=== PATIENT | female | born 1940 | race American Indian/Alaskan Native ===

== ENCOUNTER 2017-02-24 10:50 | Emergency (ER) | payer MEDICARE, OTHER ==
[2017-02-24 11:00] VITALS: BMI 19.8
[2017-02-24 11:04] VITALS: TEMP 98.7; O2SAT 100
--- NOTE | 2017-02-24 11:21 | ED PDOC ---
Arrival/HPI - General Chief Complaint: Hip Pain Time Seen by Provider: 02/24/17 11:09 Historian: Patient - History of Present Illness Narrative History of Present Illness (Text): 02/24/17 11:14 A 76 year old female, whose past medical history includes multiple myeloma, hypothyroidism, hypertension and collapsed disk (T7), presents to the emergency department complaining of right hip pain for the past 3 days. Patient notes difficulty ambulating secondary to pain. Patient denies any trauma, injury, fever, nausea, vomiting, abdominal pain, urinary symptoms, chest pain, shortness of breath or any other complaints. PMD: Dr. Ding Time/Duration: Other (3 days) Symptom Course: Unchanged Quality: Other Context: Home Associated Symptoms (Text): 02/24/17 12:43 history of multiple myeloma. Seen by the oncologist this morning and sent to the emergency Department to rule out a pathological fracture. no injury or trauma. Patient has difficulty ambulating. Past Medical History - Provider Review Nursing Documentation Reviewed: Yes - Infectious Disease Hx of Infectious Diseases: None - Tetanus Immunization Tetanus Immunization: Unknown - Cardiac Hx Cardiac Disorders: Yes (CAD) Hx Hypertension: Yes - Pulmonary Hx Respiratory Disorders: No - Neurological Hx Neurological Disorder: No - HEENT Hx HEENT Disorder: No - Renal Hx Renal Disorder: No - Endocrine/Metabolic Hx Endocrine Disorders: Yes Hx Hypothyroidism: Yes - Hematological/Oncological Hx Blood Disorders: Yes Hx Cancer: Yes (back, multiple myeloma 2016) Hx Chemotherapy: Yes (on oral chemotherapy) - Integumentary Hx Dermatological Disorder: No Other/Comment: multiple ble skin discolorations - Musculoskeletal/Rheumatological Hx Musculoskeletal Disorders: Yes Hx Arthritis: Yes - Gastrointestinal Hx Gastrointestinal Disorders: Yes (CONSTIPATION,POOR APPETITE ON ENSURE DAILY,) - Genitourinary/Gynecological Hx Genitourinary Disorders: Yes Hx Reproductive Disorders: Yes (RIGHT BREAST SX) - Psychiatric Hx Psychophysiologic Disorder: No Hx Depression: No Hx Emotional Abuse: No Hx Physical Abuse: No Hx Substance Use: No - Surgical History Hx Hysterectomy: Yes Hx Thyroidectomy: Yes Other/Comment: r breast benign growth removed - Anesthesia Hx Anesthesia: No Hx Anesthesia Reactions: No Hx Malignant Hyperthermia: No - Suicidal Assessment Feels Threatened In Home Enviroment: No Family/Social History - Physician Review Nursing Documentation Reviewed: Yes Family/Social History: No Known Family HX Smoking Status: Never Smoked Hx Alcohol Use: No Hx Substance Use: No Allergies/Home Meds Allergies/Adverse Reactions: Allergies Sulfa (Sulfonamide Antibiotics) Allergy (Verified 02/24/17 11:00) RASH Home Medications: Home Meds Medication Instructions Recorded Confirmed Aspirin [Lo-Dose Aspirin EC] 81 mg PO .2-3 X PER WEEK 12/19/16 02/24/17 Ixazomib Citrate [Ninlaro] 3 mg PO QWK 12/19/16 02/24/17 Lenalidomide [Revlimid] 25 mg PO DAILY 12/19/16 02/24/17 Calcitonin ([place]) [Miacalcin] 1 inh INH DAILY 02/24/17 02/24/17 Metoprolol Tartrate [Lopressor] 50 mg PO DAILY 02/24/17 02/24/17 predniSONE [predniSONE Tab] 2.5 mg PO DAILY 02/24/17 02/24/17 Review of Systems - Physician Review All systems were reviewed & negative as marked: Yes - Review of Systems Constitutional: absent: Fevers Respiratory: absent: SOB Cardiovascular: absent: Chest Pain Gastrointestinal: absent: Abdominal Pain, Nausea, Vomiting Genitourinary Female: absent: Dysuria, Frequency, Hematuria, Urine Output Changes Physical Exam Vital Signs Reviewed: Yes Vital Signs Temp Pulse Resp BP Pulse Ox 02/24/17 12:22 65 18 114/75 100 02/24/17 11:01 98.7 F 63 16 112/71 100 Temperature: Afebrile Blood Pressure: Normal Pulse: Regular Respiratory Rate: Normal Appearance: Positive for: Well-Appearing, Non-Toxic, Uncomfortable Pain Distress: Mild Mental Status: Positive for: Alert and Oriented X 3 - Systems Exam Head: Present: Atraumatic, Normocephalic Pupils: Present: PERRL Extroacular Muscles: Present: EOMI Conjunctiva: Present: Normal Respiratory/Chest: Present: Clear to Auscultation, Good Air Exchange. No: Respiratory Distress, Accessory Muscle Use Cardiovascular: Present: Regular Rate and Rhythm, Normal S1, S2. No: Murmurs Abdomen: Present: Normal Bowel Sounds. No: Tenderness, Distention, Peritoneal Signs Back: Present: Normal Inspection Upper Extremity: Present: Normal Inspection. No: Cyanosis, Edema Lower Extremity: Present: NORMAL PULSES, Tenderness (Right lateral hip tenderness), Neurovascularly Intact, Other (No pain with external and internal rotation). No: Edema, CALF TENDERNESS, Swelling, Erythema, Deformity, Temperature Abnormalties Neurological: Present: GCS=15, CN II-XII Intact, Speech Normal, Motor Func Grossly Intact Skin: Present: Warm, Dry, Normal Color. No: Rashes Psychiatric: Present: Alert, Oriented x 3, Normal Insight, Normal Concentration Medical Decision Making ED Course and Treatment: 02/24/17 11:14 Impression: A 76 year old female with right hip pain. Patient denies any injury or trauma. Plan: -- Right hip with pelvis xray -- Morphine and Zofran -- Reassess and disposition Prior Visits: Notes and results from previous visits were reviewed. Patient last seen in ED on 12/19/16 for generalized weakness. Patient was hospitalized for multiple myeloma and dehydration. Progress Notes: Report Date : 02/24/2017 12:32:02 PROCEDURE: Right Hip and pelvis Radiographs. Dictator : Bharathi Lewis MD IMPRESSION: Negative study 02/24/17 12:51 pain has improved. - RAD Interpretation Radiology Orders: 02/24/17 11:26 HIP MIN 2V W/ PELVIS RT [RAD] Stat hip and pelvis show no fracture or disloclocation. Travel Specialist: ED Physician - Medication Orders Current Medication Orders: Discontinued Medications Morphine Sulfate (Morphine) 4 mg IM STAT STA Stop: 02/24/17 11:28 Ondansetron HCl (Zofran Tab) 4 mg PO STAT STA Stop: 02/24/17 11:28 - Scribe Statement The provider has reviewed the documentation as recorded by the Eleazar Scott Provider Scribe Attestation: All medical record entries made by the Scribe were at my direction and personally dictated by me. I have reviewed the chart and agree that the record accurately reflects my personal performance of the history, physical exam, medical decision making, and the department course for this patient. I have also personally directed, reviewed, and agree with the discharge instructions and disposition. Disposition/Present on Arrival - Present on Arrival Any Indicators Present on Arrival: No History of DVT/PE: No History of Uncontrolled Diabetes: No Urinary Catheter: No History of Decub. Ulcer: No History Surgical Site Infection Following: None - Disposition Have Diagnosis and Disposition been Completed?: Yes Diagnosis: Multiple myeloma, Right hip pain Disposition: HOME/ ROUTINE Disposition Time: 12:51 Patient Plan: Discharge Patient Problems: Current Active Problems Problem Status Diagnosed Cachexia Acute Dehydration Acute Hypothyroid Acute Multiple myeloma Acute Pituitary adenoma Acute Prophylactic measure Acute Thoracic compression fracture Acute Condition: GOOD Discharge Instructions (ExitCare): Hip Sprain (ED) Additional Instructions: Rest and moist heat. Follow-up with PMD. Prescriptions: oxyCODONE/Acetaminophen [Percocet 5/325 mg Tab] 1 ea PO Q6 #15 tab
[2017-02-24] MEDS ORDERED: Morphine 4 mg/ml ISec IM STA (11:27)
[2017-02-24 12:22] VITALS: BP 114/75; PULSE 65; RESP 18
--- NOTE | 2017-02-24 12:33 | RAD ---
PROCEDURE: Right Hip and pelvis Radiographs. HISTORY: pain COMPARISON: None. FINDINGS: BONES: Normal. No fracture. JOINTS: Normal. SOFT TISSUES: Normal. OTHER FINDINGS: None. IMPRESSION: Negative study
== END 2017-02-24 13:15 | disposition home or self-care (01) ==
LOC: ED 10:50
DX: C90.00 Multiple myeloma not having achieved remission (principal); M25.551 Pain in right hip
CPT/HCPCS: 73502; 96372; 99283; J2270

== ENCOUNTER 2017-02-25 16:41 | Inpatient (IN) | payer MEDICARE, BC ==
[2017-02-25 16:42] VITALS: BMI 19.8
[2017-02-25] MEDS ORDERED: Morphine 4 mg/ml ISec IVP STA (18:09)
--- NOTE | 2017-02-25 18:34 | RAD ---
HISTORY: Low back pain COMPARISON: 12/19/2016. FINDINGS: LUNGS: The lungs are clear. PLEURA: No significant pleural effusion identified, no pneumothorax apparent. CARDIOVASCULAR: The heart is normal in size. Atherosclerotic aortic arch calcifications are present. . OSSEOUS STRUCTURES: No significant abnormalities. VISUALIZED UPPER ABDOMEN: Normal. OTHER FINDINGS: None. IMPRESSION: No active pulmonary disease.
--- NOTE | 2017-02-25 18:52 | ED PDOC ---
Arrival/HPI <Beatrice Brooke - Last Filed: 02/25/17 21:35> - General Historian: Patient <Nadine Burton PA-C - Last Filed: 02/25/17 23:14> - General Chief Complaint: Lower Extremity Problem/Injury Time Seen by Provider: 02/25/17 17:27 - History of Present Illness Narrative History of Present Illness (Text): 02/25/17 18:48 Patient with past medical history includes multiple myeloma, hypothyroidism, hypertension and collapsed disk (T7), presents to the emergency department complaining of continued right hip pain and low back pain for the past 4 days. Patient states that she was seen here yesterday for similar complaints, states that she had x-rays done and were normal. States that she was prescribed Percocet for pain which she started taking today with mild improvement. However she states that she has difficulty ambulating at home secondary to pain, states she called her PMD Dr. Ding who notified her to come to the emergency room to be admitted for observation. Patient denies any trauma, injury, fall, fever, nausea, vomiting, abdominal pain, urinary symptoms, bowel / bladder incontinence , chest pain, shortness of breath or any other complaints. PMD Toña (Nadine Burton PA-C) Past Medical History - Provider Review Nursing Documentation Reviewed: Yes - Infectious Disease Hx of Infectious Diseases: None - Tetanus Immunization Tetanus Immunization: Unknown - Reproductive Menopause: Yes - Cardiac Hx Cardiac Disorders: Yes (CAD) Hx Hypertension: Yes - Pulmonary Hx Respiratory Disorders: No - Neurological Hx Neurological Disorder: No - HEENT Hx HEENT Disorder: No - Renal Hx Renal Disorder: No - Endocrine/Metabolic Hx Endocrine Disorders: Yes Hx Hypothyroidism: Yes - Hematological/Oncological Hx Blood Disorders: Yes Hx Cancer: Yes (back, multiple myeloma 2016) Hx Chemotherapy: Yes (on oral chemotherapy) - Integumentary Hx Dermatological Disorder: No Other/Comment: multiple ble skin discolorations - Musculoskeletal/Rheumatological Hx Musculoskeletal Disorders: Yes Hx Arthritis: Yes - Gastrointestinal Hx Gastrointestinal Disorders: Yes (CONSTIPATION,POOR APPETITE ON ENSURE DAILY,) - Genitourinary/Gynecological Hx Genitourinary Disorders: Yes Hx Reproductive Disorders: Yes (RIGHT BREAST SX) - Psychiatric Hx Psychophysiologic Disorder: No Hx Depression: No Hx Emotional Abuse: No Hx Physical Abuse: No Hx Substance Use: No - Surgical History Hx Hysterectomy: Yes Hx Thyroidectomy: Yes Other/Comment: r breast benign growth removed - Anesthesia Hx Anesthesia: No Hx Anesthesia Reactions: No Hx Malignant Hyperthermia: No - Suicidal Assessment Feels Threatened In Home Enviroment: No <Nadine Burton PA-C - Last Filed: 02/25/17 23:14> Family/Social History - Physician Review Nursing Documentation Reviewed: Yes Family/Social History: No Known Family HX Smoking Status: Never Smoked Hx Alcohol Use: No Hx Substance Use: No <Nadine Burton PA-C - Last Filed: 02/25/17 23:14> Allergies/Home Meds <Beatrice Brooke - Last Filed: 02/25/17 21:35> <Nadine Burton PA-C - Last Filed: 02/25/17 23:14> Allergies/Adverse Reactions: Allergies Sulfa (Sulfonamide Antibiotics) Allergy (Verified 02/25/17 17:07) RASH Home Medications: Home Meds Medication Instructions Recorded Confirmed Aspirin [Lo-Dose Aspirin EC] 81 mg PO .2-3 X PER WEEK 12/19/16 02/25/17 Ixazomib Citrate [Ninlaro] 3 mg PO QWK 12/19/16 02/25/17 Lenalidomide [Revlimid] 25 mg PO DAILY 12/19/16 02/25/17 Calcitonin ([place]) [Miacalcin] 1 inh INH DAILY 02/24/17 02/25/17 Metoprolol Tartrate [Lopressor] 50 mg PO DAILY 02/24/17 02/25/17 predniSONE [predniSONE Tab] 2.5 mg PO DAILY 02/24/17 02/25/17 Review of Systems - Review of Systems Constitutional: Normal. absent: Fatigue, Weight Change, Fevers Respiratory: Normal. absent: SOB, Cough, Sputum, Wheezing Cardiovascular: Normal. absent: Chest Pain, Palpitations, Edema, Calf Pain Gastrointestinal: Normal. absent: Abdominal Pain, Stool Changes, Nausea, Vomiting Musculoskeletal: Normal, Arthralgias (prior R hipe pain), Back Pain (prior back pain). absent: Neck Pain Skin: Normal. absent: Rash, Pruritis, Skin Lesions Neurological: Normal. absent: Headache, Dizziness, Focal Weakness Psychiatric: Normal. absent: Anxiety, Depression, Suicidal Ideation <Nadine Burton PA-C - Last Filed: 02/25/17 23:14> Physical Exam <Beatrice Brooke - Last Filed: 02/25/17 21:35> <Nadine Burton PA-C - Last Filed: 02/25/17 23:14> - Physical Exam Narrative Physical Exam (Text): 02/25/17 18:53 GENERAL APPEARANCE: Patient is awake, alert, oriented x 3, in moderate painful distress. SKIN: Warm, dry; (-) cyanosis. EYES: (-) conjunctival pallor. ENMT: Mucous membranes moist. NECK: (-) tenderness, (-) stiffness, (-) lymphadenopathy, (-) JVD. CHEST AND RESPIRATORY: (-) rash, (-) chest wall tenderness. Lungs: (-) rales , (-) rhonchi, (-) wheezes, (-) rub; breath sounds equal bilaterally. HEART AND CARDIOVASCULAR: (-) irregularity; (-) murmur, (-) gallop, (-) rub. ABDOMEN AND GI: Soft; (-) distention, (-) tenderness, (-) palpable pulsatile mass. BACK: (+) tenderness to L3-L5, (-) paralumbar tenderness. EXTREMITIES: (+) tenderness to the R hip with limited ROM secondary to pain, (- ) deformity; (-) edema, (-) calf tenderness. (+) distal pulses. NEURO AND PSYCH: Mental status as above. Cranial nerves grossly intact; strength symmetric, sensation intact and symmetric. (Nadine Burton PA-C) Vital Signs Temp Pulse Resp BP Pulse Ox 02/25/17 22:28 18 98 02/25/17 21:41 78 16 98 02/25/17 19:30 70 16 109/72 98 02/25/17 17:01 98.8 F 64 18 120/56 L 99 Medical Decision Making - RAD Interpretation Quality Assurance/R&D Lab Technician: Radiologist <Beatrice Brooke - Last Filed: 02/25/17 21:35> - Lab Interpretations I have reviewed the lab results: Yes (mild renal insufficiency noted) <Nadine Burton PA-C - Last Filed: 02/25/17 23:14> ED Course and Treatment: 02/25/17 18:53 76 yo F PMHx of multiple myeloma, hypothyroidism, hypertension and collapsed disk (T7), returns to the emergency department for continued low back and right hip pain unable to ambulate secondary to pain. Plan: -- Labs -- IV access -- Urinalysis -- EKG -- CXR -- Morphine and zofran IV -- Reassess and disposition 02/25/17 23:12 Case d/w Dr. Ding, requesting a CT be done and to admit for observation. resident engineer called and notified of admission. (Micheal COFFMAN,Nadine Mitchell) - Lab Interpretations Lab Results: 02/25/17 19:10 02/25/17 19:10 Lab Results 02/25/17 19:10: Sodium 139, Potassium 4.4, Chloride 102, Carbon Dioxide 27, Anion Gap 14, BUN 35 H, Creatinine 1.8 H, Est GFR ( Amer) 33, Est GFR ( Non-Af Amer) 27, Random Glucose 96, Calcium 9.2, Total Bilirubin 0.7, AST 51 H, ALT 71 H, Alkaline Phosphatase 87, Total Protein 7.5, Albumin 3.9, Globulin 3.5 , Albumin/Globulin Ratio 1.1 02/25/17 19:10: WBC 6.7 D, RBC 3.44 L, Hgb 11.0 L, Hct 32.6 L, MCV 94.8, MCH 32.0, MCHC 33.7, RDW 17.4 H, Plt Count 174, MPV 9.3, Gran % 79.4 H, Lymph % ( Auto) 10.1 L, [place] % (Auto) 10.0 H, Eos % (Auto) 0.1 L, Baso % (Auto) 0.4, Gran # 5.33, Lymph # 0.7 L, [place] # 0.7 H, Eos # 0.0, Baso # 0.03 - RAD Interpretation Narrative RAD Interpretations (Text): EXAM: CT Pelvis Without Intravenous Contrast FINDINGS: Bones/joints: No acute fracture. Mild degenerative changes of sacroiliac joints. Probable bone island. No dislocation. Soft tissues: Chondrocalcinosis of pubic symphysis. Vasculature: Atherosclerotic disease of visualized arteries. Reproductive: Hysterectomy. IMPRESSION: 1. No pelvic fracture. If hip pain persists, consider MRI to exclude occult fracture/internal derangement. 3. See lumbar spine CT report for additional details. 4. Incidental/non-acute findings are described above. EXAM: CT Lumbar Spine Without Intravenous Contrast FINDINGS: Vertebrae: Subacute compression fractures of T12, L1, L3, L5 vertebral bodies, present on previous examination. Compression most pronounced at L5 level. Mild retropulsion of posterior margin of L5 vertebral body. Other bones/joints: Several healing rib fractures. Discs/spinal canal/neural foramina: Moderate degenerative disc disease at L3-L4 level. Mild disc herniations at L3-L4, L4-L5, L5-S1 levels, suboptimally evaluated. Soft tissues: Unremarkable. Vasculature: Atherosclerotic disease of visualized arteries. Lungs: Minimal atelectasis/scarring. Kidneys and ureters: Few renal cysts. Stomach and bowel: Mild gastric distention. IMPRESSION: 1. Subacute compression fractures. 2. Incidental/non-acute findings are described above. (Beatrice Brooke) CXR : NAD, as read by PA (Micheal COFFMAN,Nadine Mitchell) Radiology Orders: 02/25/17 18:08 CHEST PORTABLE [RAD] Stat - Medication Orders Current Medication Orders: Amlodipine Besylate (Norvasc) 5 mg PO DAILY [facility] Aspirin (Ecotrin) 81 mg PO MoTh@1000 [facility] Calcitonin [place] (Miacalcin) 200 iu NS DAILY [facility] Dexamethasone (Decadron) 16 mg PO FRI [facility] Heparin Sodium (Porcine) (Heparin) 5,000 units SC Q8H [facility] PRN Reason: Protocol Sodium Chloride (Sodium Chloride 0.9%) 1,000 mls @ 40 mls/hr IV .Q24H [facility] Levothyroxine Sodium (Synthroid) 25 mcg PO DAILY [facility] Megestrol Acetate (Megace) 400 mg PO DAILY [facility] Metoprolol Tartrate (Lopressor) 50 mg PO DAILY [facility] Morphine Sulfate (Morphine) 1 mg IVP Q4H PRN PRN Reason: Pain, severe (8-10) Non-Formulary Medication (Ixazomib Citrate [Ninlaro]) 3 mg PO QWK [facility] Non-Formulary Medication (Lenalidomide [Revlimid]) 25 mg PO DAILY [facility] Oxycodone/Acetaminophen (Percocet 5/325 Mg Tab) 1 tab PO Q6 [facility] Stop: 03/01/17 00:01 Oxycodone/Acetaminophen (Percocet 5/325 Mg Tab) 1 tab PO Q6H PRN PRN Reason: Pain, moderate (4-7) Stop: 02/28/17 22:01 Pantoprazole Sodium (Protonix Ec Tab) 40 mg PO 0630 [facility] Prednisone (Prednisone Tab) 2.5 mg PO DAILY [facility] Discontinued Medications Morphine Sulfate (Morphine) 4 mg IVP STAT STA Stop: 02/25/17 18:10 Last Admin: 02/25/17 19:17 Dose: 4 mg Ondansetron HCl (Zofran Inj) 4 mg IVP STAT STA Stop: 02/25/17 18:10 Last Admin: 02/25/17 19:18 Dose: 4 mg - PA / BILINGUAL SECRETARY / Resident Statement / has reviewed & agrees with the documentation as recorded. <Nadine Burton PA-C - Last Filed: 02/25/17 23:14> Disposition/Present on Arrival <Beatrice Brooke - Last Filed: 02/25/17 21:35> - Present on Arrival Any Indicators Present on Arrival: No History of DVT/PE: No History of Uncontrolled Diabetes: No Urinary Catheter: No History of Decub. Ulcer: No History Surgical Site Infection Following: None - Disposition Have Diagnosis and Disposition been Completed?: Yes Disposition Time: 19:15 Patient Plan: Observation (med-surg) <Nadine Burton PA-C - Last Filed: 02/25/17 23:14> - Disposition Diagnosis: Right hip pain, Low back pain Disposition: HOSPITALIZED Patient Problems: Current Active Problems Problem Status Onset Low back pain Acute Right hip pain Acute Condition: STABLE
[2017-02-25 19:17] LABS: ADD MANUAL DIFF? NO
[2017-02-25 19:26] LABS: BASO # 0.03 K/mm3 (0.0-2.0); BASO % 0.4 % (0.0-3.0); EOS % 0.1 % (1.5-5.0); GRAN # 5.33 (1.4-6.5); GRAN % 79.4 % (50.0-68.0); HEMATOCRIT 32.6 % (36.0-48.0); LYMPH # 0.7 (1.2-3.4); LYMPH % 10.1 % (22.0-35.0); MEAN CELL VOLUME 94.8 fL (80.0-105.0); MEAN CORPUSCULAR HGB CONC 33.7 g/dl (31.0-37.0); MEAN PLATELET VOLUME 9.3 fl (7.0-11.0); MONO # 0.7 (0.1-0.6); PLATELET COUNT 174 10^3/uL (120.0-450.0); RED CELL DISTRIBUTION WIDTH 17.4 % (11.5-14.5); WHITE BLOOD COUNT 6.7 10^3/ul (4.5-11.0)
[2017-02-25 19:31] LABS: ALB/GLOB RATIO 1.1 (1.1-1.8); BILIRUBIN,TOTAL 0.7 mg/dL (0.2-1.3); CALCIUM 9.2 mg/dL (8.4-10.5); POTASSIUM 4.4 mmol/L (3.6-5.0); TOTAL PROTEIN 7.5 g/dL (5.8-8.3)
--- NOTE | 2017-02-25 20:55 | CP.PCM.HP ---
History of Present Illness - History of Present Illness History of Present Illness: HPI: Pt is a 76 y/o -[place] Female with a PMHx of multiple myeloma on chemo and radiation, pituitary adenoma s/p surgery, uterine fibroids s/p hysterectomy and b/l oophorectomy, hypothyroidism secondary to thyroidectomy, and HTN who presented to the ED with complaints of severe right hip and back pain. Pt reports that her right hip pain began on , and she reports that she has been unable to bear weight on her right leg. The pt also reports that she has developed new onset severe mid lower back pain that began yesterday. She reports that she came to the ED right hip/pelvis x-ray was performed, which came back negative, and she was sent home. Pt reports that the pain is very bad. Pt also reports that she has chronic leg edema which has been present since she started chemo 2 years ago. Pt denies any history of falls or trauma to the area. Pt denies fever, chills, chest pain, shortness of breath, nausea, and vomiting. PMD: Dr. Ding Heme/onc: Dr. Huffman Past Medical Hx: ultiple myeloma on chemo and radiation, uterine fibroids, hypothyroidism secondary to thyroidectomy, and HTN Home Medications: Prednisone 2.5 mg po qd, metoprolol 50 mg po qd, norvasc 5 mg po qd, percocet 5/325 mg 1 tab po qd, calcitonin 200 iu 1 inh daily, revlimid 25 mg po qd, ninlaro 3 mg po qweekly, megace 400 mg po qd, synthroid 25 mcg 0.025 mg po qd, decadron 4 mg tab 16 mg po qfri, aspirin 81 mg po qd Allergies: Sulfa drugs (hives) Past Surgical Hx: thyroidectomy, hysterectomy with b/l oophorectomy, breast mass removal, pituitary adenoma s/p transphenoidal resection x 3, Social Hx: quit smoking 50 years ago, very occasional alcohol use socially, denies hx of drug abuse Fam Hx: breast cancer (mother), HTN, Diabetes (mother and father) Present on Admission - Present on Admission Any Indicators Present on Admission: No Review of Systems - Constitutional Constitutional: absent: Chills, Fever - EENT Eyes: absent: Blind Spots, Blurred Vision Ears: absent: Dizziness Nose/Mouth/Throat: absent: Nasal Congestion, Nasal Discharge - Cardiovascular Cardiovascular: Leg Edema. absent: Chest Pain, Dyspnea, Irregular Heart Rhythm - Respiratory Respiratory: absent: Cough, Hemoptysis - Gastrointestinal Gastrointestinal: absent: Abdominal Pain, Constipation - Musculoskeletal Musculoskeletal: Arthralgias, Back Pain, Radiating Pain into Limb Additional comments: Right hip pain, mid lower back pain - Neurological Neurological: absent: Dizziness, Focal Weakness, Frequent Falls, Tremor, Vertigo - Psychiatric Psychiatric: absent: Anxiety - Endocrine Endocrine: absent: Flushing Past Patient History - Infectious Disease Hx of Infectious Diseases: None - Tetanus Immunizations Tetanus Immunization: Unknown - Past Social History Smoking Status: Never Smoked - CARDIAC Hx Cardiac Disorders: Yes (CAD) Hx Hypertension: Yes - PULMONARY Hx Respiratory Disorders: No - NEUROLOGICAL Hx Neurological Disorder: No - HEENT Hx HEENT Problems: No - RENAL Hx Chronic Kidney Disease: No - ENDOCRINE/METABOLIC Hx Endocrine Disorders: Yes Hx Hypothyroidism: Yes - HEMATOLOGICAL/ONCOLOGICAL Hx Blood Disorders: Yes Hx Cancer: Yes (back, multiple myeloma 2016) Hx Chemotherapy: Yes (on oral chemotherapy) - INTEGUMENTARY Hx Dermatological Problems: No Other/Comment: multiple ble skin discolorations - MUSCULOSKELETAL/RHEUMATOLOGICAL Hx Musculoskeletal Disorders: Yes Hx Arthritis: Yes - GASTROINTESTINAL Hx Gastrointestinal Disorders: Yes (CONSTIPATION,POOR APPETITE ON ENSURE DAILY,) - GENITOURINARY/GYNECOLOGICAL Hx Genitourinary Disorders: Yes Hx Reproductive Disorders: Yes (RIGHT BREAST SX) - PSYCHIATRIC Hx Psychophysiologic Disorder: No Hx Depression: No Hx Emotional Abuse: No Hx Physical Abuse: No Hx Substance Use: No - SURGICAL HISTORY Hx Hysterectomy: Yes Hx Thyroidectomy: Yes Other/Comment: r breast benign growth removed - ANESTHESIA Hx Anesthesia: No Hx Anesthesia Reactions: No Hx Malignant Hyperthermia: No Meds Allergies/Adverse Reactions: Allergies Allergy/AdvReac Type Severity Reaction Status Date / Time Sulfa (Sulfonamide Allergy RASH Verified 02/25/17 17:07 Antibiotics) Physical Exam - Constitutional Appears: No Acute Distress - Head Exam Head Exam: ATRAUMATIC, NORMOCEPHALIC - Eye Exam Eye Exam: EOMI, PERRL Pupil Exam: PERRL - ENT Exam ENT Exam: Mucous Membranes Moist. absent: Mucous Membranes Dry - Respiratory Exam Respiratory Exam: Clear to Auscultation Bilateral. absent: Rales, Rhonchi, Wheezes - Cardiovascular Exam Cardiovascular Exam: +S1, +S2. absent: Gallop, Rubs - GI/Abdominal Exam GI & Abdominal Exam: Normal Bowel Sounds, Soft - Extremities Exam Extremities exam: Positive for: normal inspection. Negative for: tenderness - Back Exam Back exam: NORMAL INSPECTION. absent: vertebral tenderness - Neurological Exam Neurological exam: Alert, Oriented x3 - Psychiatric Exam Psychiatric exam: Normal Affect, Normal Mood - Skin Skin Exam: Normal Color, Warm Results - Vital Signs Recent Vital Signs: Last Vital Signs Temp 98.8 F 02/25/17 17:01 Pulse 70 02/25/17 19:30 Resp 16 02/25/17 19:30 BP 109/72 02/25/17 19:30 Pulse Ox 98 02/25/17 19:30 - Labs Result Diagrams: 02/25/17 19:10 02/25/17 19:10 Assessment & Plan - Assessment and Plan (Free Text) Assessment: Right Pelvic/Lower back pain: Hip/Pelvis x-ray (02/24) - negative (please see full report) CT of Pelvis pending Lumbar Spine CT pending CXR - no active pulmonary disease (please see full report) Heme/onc, Dr. Huffman consulted, help appreciated. KAMAR: Bun/Cr 35/1.8 NS IVF 40 cc/hr Transaminitis: AST/ALT: 51/71 Hepatitis panel pending Multiple Myeloma: Prednisone 2.5 mg po qd Ninlaro 3mg po qwk Decadron 4 mg 16 mg po qfri Megace 400 mg po qd Hypothyroidism: Levothyroxine - 0.025 mg po qd Calcitonin INH HTN: Norvac 5 mg po qd Metoprolol 50 mg po qd Prophylactic Measures: DVT: SCDs held due to b/l lower leg edema, Heparin 5000 units sc q8h GI: Protonix 40 mg po qd Aspirin 81 mg po qd
--- NOTE | 2017-02-25 21:21 | CT ---
EXAM: CT Pelvis Without Intravenous Contrast CLINICAL HISTORY: 76 years old, female; Pain; Hip pain; Right hip; Additional info: R hip pain, R/O occult fracture TECHNIQUE: Axial computed tomography images of the pelvis without intravenous contrast. This CT exam was performed using one or more of the following dose reduction techniques: automated exposure control, adjustment of the mA and/or kV according to patient size, and/or use of iterative reconstruction technique. Coronal and sagittal reformatted images were created and reviewed. COMPARISON: CT - ABD PELVIS PO CONTRAST ONLY 01/06/2017 9:05:30 PM FINDINGS: Bones/joints: No acute fracture. Mild degenerative changes of sacroiliac joints. Probable bone island. No dislocation. Soft tissues: Chondrocalcinosis of pubic symphysis. Vasculature: Atherosclerotic disease of visualized arteries. Reproductive: Hysterectomy. IMPRESSION: 1. No pelvic fracture. If hip pain persists, consider MRI to exclude occult fracture/internal derangement. 3. See lumbar spine CT report for additional details. 4. Incidental/non-acute findings are described above.
--- NOTE | 2017-02-25 21:29 | CT ---
EXAM: CT Lumbar Spine Without Intravenous Contrast CLINICAL HISTORY: 76 years old, female; Pain; Low back pain; Additional info: Back pain, R/O occult fracture TECHNIQUE: Axial computed tomography images of the lumbar spine without intravenous contrast. This CT exam was performed using one or more of the following dose reduction techniques: automated exposure control, adjustment of the mA and/or kV according to patient size, and/or use of iterative reconstruction technique. Coronal and sagittal reformatted images were created and reviewed. COMPARISON: CT abdomen/pelvis 01/06/2017 FINDINGS: Vertebrae: Subacute compression fractures of T12, L1, L3, L5 vertebral bodies, present on previous examination. Compression most pronounced at L5 level. Mild retropulsion of posterior margin of L5 vertebral body. Other bones/joints: Several healing rib fractures. Discs/spinal canal/neural foramina: Moderate degenerative disc disease at L3-L4 level. Mild disc herniations at L3-L4, L4-L5, L5-S1 levels, suboptimally evaluated. Soft tissues: Unremarkable. Vasculature: Atherosclerotic disease of visualized arteries. Lungs: Minimal atelectasis/scarring. Kidneys and ureters: Few renal cysts. Stomach and bowel: Mild gastric distention. IMPRESSION: 1. Subacute compression fractures. 2. Incidental/non-acute findings are described above.
[2017-02-25] MEDS ORDERED: Morphine 2 mg/ml ISec IVP PRN (21:51)
[2017-02-25] MEDS ORDERED: Sodium Chloride 0.9% 1,000 ML IV SCH (23:15)
[2017-02-26] MEDS ORDERED: Oxycodone/Acetaminophen 5/325 mg Tab PO SCH
[2017-02-26 01:07] LABS: URINE BILIRUBIN NEGATIVE (NEGATIVE); URINE BLOOD NEGATIVE (NEGATIVE); URINE GLUCOSE (UA) NEGATIVE (NEGATIVE); URINE KETONE NEGATIVE (NEGATIVE); URINE LEUKOCYTE ESTERASE NEGATIVE Leu/uL (NEGATIVE); URINE PROTEIN TRACE mg/dL (<30 mg/dL); URINE UROBILINOGEN 0.2 E.U./dL (<1 E.U./dL)
[2017-02-26 01:17] LABS: URINE APPEARANCE CLEAR (CLEAR); URINE COLOR YELLOW (YELLOW)
[2017-02-26 01:31] LABS: URINE EPITHELIAL CELLS 0 - 2 /hpf (0-5); URINE RBC 0 - 2 /hpf (0-2); URINE WBC 0 - 2 /hpf (0-6)
[2017-02-26 07:46] LABS: ADD MANUAL DIFF? NO
[2017-02-26 07:48] LABS: BASO # 0.02 K/mm3 (0.0-2.0); BASO % 0.4 % (0.0-3.0); EOS % 0.4 % (1.5-5.0); GRAN # 3.77 (1.4-6.5); HEMATOCRIT 27.2 % (36.0-48.0); LYMPH # 0.9 (1.2-3.4); LYMPH % 16.8 % (22.0-35.0); MEAN CELL VOLUME 93.8 fL (80.0-105.0); MEAN CORPUSCULAR HEMOGLOBIN 31.7 pg (25.0-35.0); MEAN CORPUSCULAR HGB CONC 33.8 g/dl (31.0-37.0); MEAN PLATELET VOLUME 9.3 fl (7.0-11.0); MONO # 0.7 (0.1-0.6); MONO % 13.4 % (1.0-6.0); PLATELET COUNT 163 10^3/uL (120.0-450.0); RED CELL DISTRIBUTION WIDTH 17.5 % (11.5-14.5); WHITE BLOOD COUNT 5.5 10^3/ul (4.5-11.0)
[2017-02-26 08:03] LABS: ALB/GLOB RATIO 1.1 (1.1-1.8); CALCIUM 8.5 mg/dL (8.4-10.5); PHOSPHOROUS 2.9 mg/dL (2.5-4.5); POTASSIUM 3.8 mmol/L (3.6-5.0); TOTAL PROTEIN 6.1 g/dL (5.8-8.3)
[2017-02-26 08:04] LABS: BILIRUBIN,TOTAL 0.7 mg/dL (0.2-1.3)
[2017-02-26] MEDS: Pantoprazole 40 mg EC Tab PO SCH (08:11)
[2017-02-26] MEDS: Megestrol Acetate 40 mg/ml Cup PO SCH (09:08)
[2017-02-26] MEDS: Levothyroxine 25 MCG TAB PO SCH (09:09)
[2017-02-26] MEDS: LENALIDOMIDE 25 MG PO SCH (10:30)
--- NOTE | 2017-02-26 10:49 | CON ---
DATE: 02/26/2017 This is a 76-year-old woman with multiple myeloma. She presented about a year and a half ago with th oracic spine pain and she was shown to have multiple myeloma. She received radiation therapy to that area and she has been on chemotherapy since. This includes Decadron once a week, Revlimid 21 out of 28 days, and Ninlaro 1 tablet p.o. once a week 3 out of 4 weeks. She has been doing quite well. He r total proteins have gone down and her blood tests have been doing well. She came to the office on Friday stating that for the last 4 days she has not been able to ambulate almost at all within her ho use due to severe pain in her hip, and on Friday I told to her to go to the Emergency Room. She did go to the Emergency Room but was sent home after being put on some pain medicines and some normal x-r ays. The visiting nurse called me from the house yesterday to say that she is still in severe pain, not really able to ambulate. So she has to go back to the hospital and be admitted. If nothing else , physical therapy and to rule out a fracture somewhere in the pelvis or the hip. PHYSICAL EXAMINATION: SKIN: No lesions. HEENT: Anicteric. NODES: None palpable. LUNGS: Clear. BACK: No vertebral tenderness. HEART: S1, S2. ABDOMEN: Shows no liver, no spleen, no tenderness. EXTREMITIES: No edema. CENTRAL NERVOUS SYSTEM: No focal finding. LABORATORY DATA: The hemoglobin is 11. Her BUN 35, creatinine 1.8. Her total protein is 7.5. She has mild liver function abnormalities with an AST of 51, ALT of 71; unclear cause. At this point, I told her to hold off on taking her chemotherapy. She is not supposed to take any of it anyway just because on the Decadron, but will hold off and reevaluate before next week whether to restart the Rev limid. In the meantime, the CAT scan of the lumbar spine shows diffuse subacute compression fracture s of T12, L1, L3, L5 and most ____ at the L5. This probably has something to do with this. We had h eld off giving her Zometa and Xgeva because of her kidney function. We may see about starting the Zo meta on the lower dose as an outpatient. Anyway, for now she is on pain medications. I reordered he r protein levels to reassess her myeloma, but that seems to have improved and be under control. It i s the osteoporosis causing fractures. I will see how she does with physical therapy. Wicho Nathanael JORGE cc: [id number] TT: 02/26/2017 10:48:25 Confirmation # [id number] Dictation # [id number] mn
--- NOTE | 2017-02-26 12:13 | CON ---
DATE: 02/26/2017 HISTORY OF PRESENT ILLNESS: This is a 76-year-old woman with multiple myeloma. She has a 4-5 day history of lumbar back pain and severe right hip pain. Her multiple myeloma was diagnosed in 2015. She presented with a T7 compression fracture. She has been under the care of Dr. Huffman. Current imaging of the lumbar spine demonstrates a moderate L1 compression fracture, a mild L3 compression fracture and a severe L5 compression fracture. These fractures were not present on plain film imaging in 05/2016. No obvious pathology involving the right hip is noted on a CT scan. Currently, the patient is not interested in a kyphoplasty. She would like to start with conservative management and a back brace. Her back pain has improved with narcotics. If her pain persists and is lifestyle limiting, she can be reconsidered for kyphoplasty. An MRI of the lumbar spine should be performed prior to any procedure. Thank you for the referral. Please let me know if intervention is desired in the future. Bryan Hearn MD cc: [id number] TT: 02/26/2017 12:12:20 Confirmation # [id number] Dictation # [id number] daniel PEREZ
[2017-02-26 12:22] LABS: IMMUNOGLOBULIN G 860.9 mg/dL (700.0-1600.0)
[2017-02-26 12:23] LABS: IMMUNOGLOBULIN M 31.6 mg/dL (40.0-230.0)
[2017-02-26 12:24] LABS: IMMUNOGLOBULIN A 44.2 mg/dL (70.0-400.0)
--- NOTE | 2017-02-26 12:42 | CP.PCM.PN ---
<Jerrod Brice - Last Filed: 02/26/17 21:05> Subjective - Date & Time of Evaluation Date of Evaluation: 02/26/17 Time of Evaluation: 12:32 - Subjective Subjective: Medicine progress note - Jerrod Brice PGY1 Patient seen and examined at bedside. No acute overnight events or new complaints. Patient admitted for intractable back pain. Denies chest pain, palpitations, SOB. Objective - Vital Signs/Intake and Output Vital Signs (last 24 hours): Temp Pulse Resp BP Pulse Ox 98.8 F 61 20 151/71 H 98 02/26/17 08:55 02/26/17 08:55 02/26/17 08:55 02/26/17 08:55 02/26/17 08:55 Intake and Output: 02/26/17 02/26/17 06:59 18:59 Intake Total 400 Output Total 200 Balance 200 - Medications Medications: Current Medications Amlodipine Besylate (Norvasc) 5 mg PO DAILY [facility] Last Admin: 02/26/17 11:03 Dose: 5 mg Aspirin (Ecotrin) 81 mg PO MoTh@1000 [facility] Calcitonin [place] (Miacalcin) 200 iu NS DAILY [facility] Dexamethasone (Decadron) 16 mg PO FRI [facility] Heparin Sodium (Porcine) (Heparin) 5,000 units SC Q8H MARCE PRN Reason: Protocol Last Admin: 02/26/17 07:59 Dose: 5,000 units Sodium Chloride (Sodium Chloride 0.9%) 1,000 mls @ 40 mls/hr IV .Q24H [facility] Last Admin: 02/26/17 00:17 Dose: 40 mls/hr Levothyroxine Sodium (Synthroid) 25 mcg PO DAILY [facility] Last Admin: 02/26/17 09:09 Dose: 25 mcg Megestrol Acetate (Megace) 400 mg PO DAILY [facility] Last Admin: 02/26/17 09:08 Dose: 400 mg Metoprolol Tartrate (Lopressor) 50 mg PO DAILY [facility] Last Admin: 02/26/17 09:09 Dose: 50 mg Morphine Sulfate (Morphine) 1 mg IVP Q4H PRN PRN Reason: Pain, severe (8-10) Non-Formulary Medication (Ixazomib Citrate [Ninlaro]) 3 mg PO QWK [facility] Non-Formulary Medication (Lenalidomide [Revlimid]) 25 mg PO DAILY [facility] Oxycodone/Acetaminophen (Percocet 5/325 Mg Tab) 1 tab PO Q6H PRN PRN Reason: Pain, moderate (4-7) Stop: 02/28/17 22:01 Pantoprazole Sodium (Protonix Ec Tab) 40 mg PO 0630 [facility] Last Admin: 02/26/17 08:11 Dose: 40 mg Prednisone (Prednisone Tab) 2.5 mg PO DAILY [facility] Last Admin: 02/26/17 09:08 Dose: 2.5 mg - Labs Labs: 02/26/17 07:30 02/26/17 07:30 - Constitutional Appears: Well, Non-toxic, No Acute Distress - Head Exam Head Exam: ATRAUMATIC, NORMAL INSPECTION, NORMOCEPHALIC - Eye Exam Eye Exam: EOMI, PERRL - ENT Exam ENT Exam: Mucous Membranes Moist - Neck Exam Neck Exam: Normal Inspection - Respiratory Exam Respiratory Exam: Clear to Ausculation Bilateral. absent: Rales, Rhonchi, Wheezes - Cardiovascular Exam Cardiovascular Exam: RRR, +S1, +S2. absent: Diastolic murmur, Gallop, Rubs, Murmur - GI/Abdominal Exam GI & Abdominal Exam: Soft, Normal Bowel Sounds. absent: Distended, Firm, Guarding, Rigid, Tenderness, Rebound - Extremities Exam Extremities Exam: Normal Inspection - Back Exam Additional comments: low back and right hip pain; tender to palpation - Neurological Exam Neurological Exam: Alert, Awake, Oriented x3 - Psychiatric Exam Psychiatric exam: Normal Affect, Normal Mood - Skin Skin Exam: Dry, Intact, Normal Color, Warm Assessment and Plan - Assessment and Plan (Free Text) Plan: 1. Low back pain -Hip/Pelvis x-ray (02/24) - negative (please see full report) -CXR revealed no active disease -CT Pelvis negative for fractures -Lumbar CT revealed subacute compression fractures T12, L1, L3, L5 vertebral bodies; Mild disc herniation at L3-L4, L4-L5, L5-S1; see full report -MRI Lumbar spine pending -PT/OT pending -Back brace -Patient declined IR intervention -Orthopedic surgery consulted - Dr. Paulino -IR consulted - Dr. Hearn -Heme/Onc consulted - Dr. Huffman 2. Acute Kidney Injury -Will continue to monitor renal function -Continue with IVF hydration 3. Transaminitis -Hepatitis panel pending 4. Multiple Myeloma -Prednisone 2.5 mg po qd -Ninlaro 3mg po qwk -Decadron 4 mg 16 mg po qfri -Megace 400 mg po qd -Heme/Onc consulted - Dr. Huffman 5. Hypothyroidism: -Continue home synthroid 6. Hypertension - Contniue Norvac 5 mg po qd - Continue Metoprolol 50 mg po qd 7. GI/DVT Prophylaxis -Protonix/heparin Patient seen and case discussed with attending, Dr. Ding <Adrian Ding - Last Filed: 04/04/17 08:26> Objective - Vital Signs/Intake and Output Vital Signs (last 24 hours): Temp Pulse Resp BP Pulse Ox 98.7 F 63 18 157/88 H 98 03/01/17 08:00 03/01/17 10:52 03/01/17 08:00 03/01/17 10:52 03/01/17 08:00 - Labs Labs: 02/28/17 06:30 02/28/17 06:30 Attending/Attestation - Attestation I have personally seen and examined this patient.: Yes I have fully participated in the care of the patient.: Yes I have reviewed all pertinent clinical information, including history, physical exam and plan: Yes Notes (Text): 04/04/17 08:26 Medical record note made by the resident after discussion with my direction and input after the patient was personally seen and examined by me. I have reviewed the chart and agree that the record reflects my personal performance of history, physical, data review and course for the patient that I have planned.
--- NOTE | 2017-02-26 13:03 | CARD ---
APPROVED REPORT EKG Measurement Heart [id number] <Conclusion> Normal sinus rhythm Normal ECG
[2017-02-26] MEDS: Calcitonin 200 Int Units/Inh Nasal Spray (3.7 ml) NS SCH (13:37)
--- NOTE | 2017-02-26 15:22 | CON ---
DATE: 02/26/2017 A 76-year-old female being seen for back pain with a significant past history of multiple myeloma x 2 years with multiple compression fractures. Last x-ray of significance is a CAT scan of her lumbar s pine done on 02/25/2017, showing extensive bone involvement of T12, L1, L3 and L5 with significant com pression deformities worse at L5 and multiple rib fractures. She had the ability to do leg elevation , leg lifts and straight leg raising without undue pain or weakness. I feel as though with a history of multiple myeloma and multiple compression fractures, she really should be seen by a spine surgeon , especially if she decompensates, she could become neurologically compromised. I would hope they wo scotty get an orthopedic or neurological spine surgeon to evaluate her condition and to guide her in elvia e she does decompensate. I have seen people like this get somewhat weak muscles from the nerve injur y and hopefully we will get a neurologist to see her to start the ball rolling. In the meantime, we will start physical therapy to do strengthening exercises of her back and her legs and try to get her up out of bed with help, as prolonged bedrest has its own problems. There is a chance that a kyphop lasty might help but I would like her to be seen by a spine surgeon first. FINAL DIAGNOSES: Multiple compression fractures of the dorsal lumbar spine with underlying multiple myeloma. Presently, she has adequate strength in her lower legs to be up out of bed and start physic al therapy and ambulate with a walker. I will follow her with you. Bharathi Paulino DO cc: [id number] TT: 02/26/2017 15:21:46 Confirmation # [id number] Dictation # [id number]
[2017-02-27 07:44] LABS: HEMATOCRIT 29.7 % (36.0-48.0); MEAN CELL VOLUME 93.7 fL (80.0-105.0); MEAN CORPUSCULAR HEMOGLOBIN 31.9 pg (25.0-35.0); MEAN PLATELET VOLUME 8.7 fl (7.0-11.0); RED CELL DISTRIBUTION WIDTH 17.1 % (11.5-14.5); WHITE BLOOD COUNT 4.6 10^3/ul (4.5-11.0)
[2017-02-27] MEDS: Pantoprazole 40 mg EC Tab PO SCH (07:49)
[2017-02-27 08:00] LABS: BILIRUBIN,TOTAL 0.8 mg/dL (0.2-1.3); CALCIUM 8.6 mg/dL (8.4-10.5); POTASSIUM 3.8 mmol/L (3.6-5.0); TOTAL PROTEIN 6.3 g/dL (5.8-8.3)
[2017-02-27 09:00] VITALS: RESP 18
[2017-02-27] MEDS: Oxycodone/Acetaminophen 5/325 mg Tab PO PRN (10:41)
[2017-02-27] MEDS: Levothyroxine 25 MCG TAB PO SCH (10:41)
[2017-02-27] MEDS: LENALIDOMIDE 25 MG PO SCH (10:44)
[2017-02-27] MEDS: Calcitonin 200 Int Units/Inh Nasal Spray (3.7 ml) NS SCH (10:46)
[2017-02-27] MEDS: Megestrol Acetate 40 mg/ml Cup PO SCH (10:46)
--- NOTE | 2017-02-27 13:34 | CON ---
DATE: 02/27/2017 HISTORY OF PRESENT ILLNESS: A 76-year-old black female with history of multiple myeloma, on chemothe rapy and radiation, status post pituitary adenoma resection, admitted with severe back and right hip pain that began last week, reports that she was unable to bear weight on her right leg. Severe back pain increased day before admission. X-rays and CT and MRI demonstrated multiple compression fractur es throughout the entire lumbar spine. No evidence of instability. Her chart has been reviewed for allergies, medications, past medical history, social and family histo ry. PHYSICAL EXAMINATION: Finds that she is tender over the entire lumbar spine to palpation. She has g ood strength in both lower extremities. She has no sensory deficits. Reflexes are all 2/4. At this point, there is not a case for surgical intervention. She does have a TLSO brace. She shoul d wear it when she is out of bed and perhaps vertebroplasty may benefit her if conservative measures fail. If you have any questions, please do not hesitate to contact me. Chong Paulson MD cc: [id number] TT: 02/27/2017 13:33:00 Confirmation # [id number] Dictation # [id number] tn
[2017-02-27] MEDS: POLYETHYLENE GLYCOL 3350 17 GM/Dose PACKET PO SCH (14:00)
--- NOTE | 2017-02-27 19:34 | CP.PCM.PN ---
<Jerrod Brice - Last Filed: 02/27/17 19:30> Subjective - Date & Time of Evaluation Date of Evaluation: 02/27/17 Time of Evaluation: 19:30 - Subjective Subjective: Medicine progress note - Jerrod Brice PGY1 Patient seen and examined at bedside. No acute changes overnight. Pt is comfortable and denies any pain. Pt reports constipation, last BM 3 days ago. Denies CP, SOB, palpitations, N/V. Objective - Vital Signs/Intake and Output Vital Signs (last 24 hours): Temp Pulse Resp BP Pulse Ox 98.4 F 57 L 18 139/68 97 02/27/17 16:00 02/27/17 16:00 02/27/17 16:00 02/27/17 16:00 02/27/17 16:00 Intake and Output: 02/27/17 02/28/17 18:59 06:59 Intake Total 600 Balance 600 - Medications Medications: Current Medications Amlodipine Besylate (Norvasc) 5 mg PO DAILY [facility] Last Admin: 02/27/17 10:43 Dose: 5 mg Aspirin (Ecotrin) 81 mg PO MoTh@1000 [facility] Last Admin: 02/27/17 10:41 Dose: 81 mg Calcitonin [employer] (Miacalcin) 200 iu NS DAILY [facility] Last Admin: 02/27/17 10:46 Dose: 1 spr Dexamethasone (Decadron) 16 mg PO FRI [facility] Heparin Sodium (Porcine) (Heparin) 5,000 units SC Q8H MARCE PRN Reason: Protocol Last Admin: 02/27/17 14:53 Dose: 5,000 units Levothyroxine Sodium (Synthroid) 25 mcg PO DAILY [facility] Last Admin: 02/27/17 10:41 Dose: 25 mcg Megestrol Acetate (Megace) 400 mg PO DAILY [facility] Last Admin: 02/27/17 10:46 Dose: 400 mg Metoprolol Tartrate (Lopressor) 50 mg PO DAILY [facility] Last Admin: 02/27/17 10:44 Dose: 50 mg Morphine Sulfate (Morphine) 1 mg IVP Q4H PRN PRN Reason: Pain, severe (8-10) Non-Formulary Medication (Ixazomib Citrate [Ninlaro]) 3 mg PO QWK [facility] Non-Formulary Medication (Lenalidomide [Revlimid]) 25 mg PO DAILY [facility] Last Admin: 02/27/17 10:44 Dose: Not Given Oxycodone/Acetaminophen (Percocet 5/325 Mg Tab) 1 tab PO Q6H PRN PRN Reason: Pain, moderate (4-7) Stop: 02/28/17 22:01 Last Admin: 02/27/17 10:41 Dose: 1 tab Pantoprazole Sodium (Protonix Ec Tab) 40 mg PO 0630 [facility] Last Admin: 02/27/17 07:49 Dose: 40 mg Polyethylene Glycol (Miralax) 17 gm PO DAILY [facility] Last Admin: 02/27/17 14:00 Dose: 17 gm Prednisone (Prednisone Tab) 2.5 mg PO DAILY [facility] Last Admin: 02/27/17 10:43 Dose: 2.5 mg - Labs Labs: 02/27/17 07:30 02/27/17 07:30 - Constitutional Appears: Well, Non-toxic, No Acute Distress - Head Exam Head Exam: ATRAUMATIC, NORMAL INSPECTION, NORMOCEPHALIC - Eye Exam Eye Exam: EOMI, PERRL - ENT Exam ENT Exam: Mucous Membranes Moist - Neck Exam Neck Exam: Normal Inspection - Respiratory Exam Respiratory Exam: Clear to Ausculation Bilateral. absent: Rales, Rhonchi, Wheezes - Cardiovascular Exam Cardiovascular Exam: RRR, +S1, +S2. absent: Gallop, JVD, Rubs - GI/Abdominal Exam GI & Abdominal Exam: Soft, Normal Bowel Sounds. absent: Distended, Firm, Guarding, Rigid, Tenderness - Neurological Exam Neurological Exam: Alert, Awake, Oriented x3 - Psychiatric Exam Psychiatric exam: Normal Affect, Normal Mood - Skin Skin Exam: Dry, Intact, Normal Color, Warm Assessment and Plan - Assessment and Plan (Free Text) Plan: 1. Low back pain * Hip/Pelvis x-ray (02/24) - negative (please see full report) * CXR revealed no active disease * CT Pelvis negative for fractures * Lumbar CT revealed subacute compression fractures T12, L1, L3, L5 vertebral bodies; Mild disc herniation at L3-L4, L4-L5, L5-S1; see full report * MRI Lumbar spine initially denied, re-ordered today * PT/OT pending * Back brace * Patient declined IR intervention * Orthopedic surgery consulted - Dr. Paulino * IR consulted - Dr. Hearn * Heme/Onc consulted - Dr. Huffman * Neurosx consulted - Dr. Suarez 2. Multiple Myeloma * Prednisone 2.5mg po qd * Ninlaro 3mg po qwk * Decadron 4mg 16mg po qfri * Megace 400mg po qd * heme/onc consulted - Dr. Huffman 3. Chronic Kidney Disease stage 3 * Currently within baseline, will continue to monitor renal function 4. Hypothyroidism * Continue home synthroid 5. Hypertension * Continue Norvasc 5mg po qd * Continue Metoprolol 50mg po qd 6. GI/DVT Prophylaxis * Protonix/heparin 7. Constipation * Relistor 12mg once * Continue Miralax Patient seen, reviewed, and case discussed with attending, Toña Luevano. <Adrian Ding - Last Filed: 04/04/17 08:26> Objective - Vital Signs/Intake and Output Vital Signs (last 24 hours): Temp Pulse Resp BP Pulse Ox 98.7 F 63 18 157/88 H 98 03/01/17 08:00 03/01/17 10:52 03/01/17 08:00 03/01/17 10:52 03/01/17 08:00 - Labs Labs: 02/28/17 06:30 02/28/17 06:30 Attending/Attestation - Attestation I have personally seen and examined this patient.: Yes I have fully participated in the care of the patient.: Yes I have reviewed all pertinent clinical information, including history, physical exam and plan: Yes Notes (Text): 04/04/17 08:26 Medical record note made by the resident after discussion with my direction and input after the patient was personally seen and examined by me. I have reviewed the chart and agree that the record reflects my personal performance of history, physical, data review and course for the patient that I have planned.
--- NOTE | 2017-02-27 20:56 | MRI ---
EXAM: MR Lumbar Spine Without Intravenous Contrast CLINICAL HISTORY: 76 years old, female; Signs and symptoms; Lumbago; Patient HX: Lower back pain. ? Compression fracture; Additional info: Eval compression fractures TECHNIQUE: Magnetic resonance images of the lumbar spine without intravenous contrast in multiple planes. EXAM DATE/TIME: 02/27/2017 11:01 AM COMPARISON: Recent CT lumbar spine 02/25/2017 8:51:24 PM FINDINGS: VERTEBRAE: Multiple vertebral compression fractures. These involve the T10, L1, L2, L3, and L5 vertebra. At T10, L2 , and L5, there is a associated increased T2 and decreased T1 signal, compatible with recent compression fractures, likely subacute. The compression fractures at L1 and L3 appear chronic in nature. The degree of height loss is greatest at T10, and L1, and L5, where there is greater than 50% vertebral height loss. No evidence of significant vertebral retropulsion. No evidence of significant vertebral subluxation. SPINAL CORD: No evidence of signal abnormality in the conus medullaris, which terminates at the L1 level. SOFT TISSUES: No acute abnormality identified. KIDNEYS AND URETERS: Bilateral renal cysts incidentally noted. DISCS/SPINAL CANAL/NEURAL FORAMINA: OTHER FINDINGS: Multilevel degenerative disc disease, greatest at the L5-S1 level. T12-L1: Bilateral facet joint arthropathy. No evidence of significant spinal canal stenosis. L1-L2: Bilateral facet joint arthropathy. No evidence of significant spinal canal stenosis. L2-L3: Bilateral facet joint arthropathy. No evidence of significant spinal canal stenosis. L3-L4: Mild posterior disc bulge and bilateral facet joint arthropathy. No evidence of significant spinal canal stenosis. L4-L5: Mild posterior disc bulge and bilateral facet joint arthropathy. There is associated mild bilateral neural foraminal narrowing and minimal spinal canal stenosis. L5-S1: Left posterior disc bulge and bilateral facet joint arthropathy. There is associated mild left neural foraminal narrowing. No evidence of significant spinal canal stenosis. IMPRESSION: - Multiple vertebral compression fractures. - Findings compatible with recent (likely subacute) compression fractures at T10, L2, and L5. The degree of height loss is greatest at T10 and L5, where there is greater than 50% compression deformity. - Chronic appearing compression fractures of L1 and L3. - See above for remaining findings.
--- NOTE | 2017-02-27 21:41 | CON ---
DATE: 02/27/2017 LOCATION: Room 575, bed 2. REQUESTING PHYSICIAN: Dr. Ding. HISTORY OF PRESENT ILLNESS: The patient is a pleasant 76-year-old female with past medical history o f multiple myeloma on chemotherapy and radiation, a pituitary adenoma status post surgery, uterine fi broid status post hysterectomy and bilateral oophorectomy, hypothyroidism status post thyroidectomy, and hypertension. The patient presented to the [facility] Room complaining of low back pain and severe right hip pain that began a week ago. The patient reports that she has been unable to bear weight on her right leg and also she mentions that she developed new onset severe mid and low back pain that started on 02/24/2017. The patient was prescribed morphine sulfate IV push 1 mg q. 4 hours and Percocet 5/325 one p.o. q. 6 hours p.r.n. for pain. She only received 1 Percocet today and patient stated that her pain at this point, while lying in bed, is 3 to 4/10. PAST MEDICAL HISTORY AND PAST SURGICAL HISTORY: As above. ALLERGIES: SULFA DRUGS. HOME MEDICATIONS: Prednisone 2.5 mg p.o. daily, metoprolol, Norvasc, Percocet 5/325 one p.o. daily, calcitonin 200 international units, Revlimid 25 mg p.o. daily, Synthroid, Megace, Decadron 4 mg table ts, aspirin 81 mg daily. SOCIAL HISTORY: The patient stated that she quit smoking 50 years ago. FAMILY HISTORY: Mother with breast cancer. Mother and father with diabetes. REVIEW OF SYSTEMS: A 14-point review of systems was negative except what is mentioned above in histo ry of present illness. PHYSICAL EXAMINATION: GENERAL: The patient is lying in bed, in no acute distress. HEENT: Head atraumatic, normocephalic. Eyes: PERRLA. Extraocular muscles intact. NECK: Supple. No jugular venous distention noted. LUNGS: Clear to auscultation bilaterally. CARDIOVASCULAR: S1, S2 is normal. ABDOMEN: Soft, nontender, nondistended. MUSCULOSKELETAL: There is localized tenderness over spinous process of lower lumbar spine and lower thoracic spine. There is tenderness over bilateral lumbar paraspinal and right SI joint area. There is right groin tenderness with painful range of motion of the right hip. RADIOLOGIC STUDIES: A CT scan of lumbar spine showed multiple subacute compression fractures. When the films were reviewed, it showed evidence of L1, L3, L5 compression fracture and T10 compression fr acture with significant compression deformity at L5. The patient just MRI an hour ago; report is not ready. All the films were not ready to be reviewed. ASSESSMENT: Low back pain secondary to multiple compression fractures and disk herniations. RECOMMENDATIONS: 1. The patient to wear thoracolumbar orthosis. 2. Continue with the current pain medication. 3. Physical therapy for ambulation. 4. The patient to follow up as an outpatient. 5. If no improvement with the above measures, will consider kyphoplasty for the most painful area. Thank you for your kind consultation. Ata Chen MD cc: [phone] TT: 02/27/2017 21:40:15 Confirmation # [id number] Dictation # [id number] mn
[2017-02-28] MEDS: Pantoprazole 40 mg EC Tab PO SCH (06:56)
[2017-02-28 07:40] LABS: HEMATOCRIT 29.1 % (36.0-48.0); MEAN CELL VOLUME 93.3 fL (80.0-105.0); MEAN CORPUSCULAR HEMOGLOBIN 31.7 pg (25.0-35.0); MEAN PLATELET VOLUME 9.4 fl (7.0-11.0); WHITE BLOOD COUNT 4.1 10^3/ul (4.5-11.0)
[2017-02-28 07:58] LABS: ALB/GLOB RATIO 1.1 (1.1-1.8); BILIRUBIN,TOTAL 0.5 mg/dL (0.2-1.3); CALCIUM 8.4 mg/dL (8.4-10.5); POTASSIUM 4.3 mmol/L (3.6-5.0); TOTAL PROTEIN 6.1 g/dL (5.8-8.3)
[2017-02-28 08:13] VITALS: PULSE 63
[2017-02-28] MEDS: Levothyroxine 25 MCG TAB PO SCH (09:15)
[2017-02-28] MEDS: LENALIDOMIDE 25 MG PO SCH (09:16)
[2017-02-28] MEDS: POLYETHYLENE GLYCOL 3350 17 GM/Dose PACKET PO SCH (09:17)
[2017-02-28] MEDS: Megestrol Acetate 40 mg/ml Cup PO SCH (09:20)
[2017-02-28] MEDS: Calcitonin 200 Int Units/Inh Nasal Spray (3.7 ml) NS SCH (09:20)
--- NOTE | 2017-02-28 10:11 | CP.PCM.PN ---
<Jerrod Brice - Last Filed: 02/28/17 14:30> Subjective - Date & Time of Evaluation Date of Evaluation: 02/28/17 Time of Evaluation: 10:08 - Subjective Subjective: Medicine progress note - Jerrod Suárezezekiel PGY1 Patient seen and examined at bedside. No acute overnight events or new complaints. Patient has been evaluated by IR, neurosurgery, orthopedic surgery and pain management. As of now, she is reluctant for surgical management and neurosurgery has recommended physical therapy with aid of back brace. Surgical options to be reconsidered if fails physical therapy. Patient is aware of current workup/plan. Denies chest pain, palpitations, SOB. Objective - Vital Signs/Intake and Output Vital Signs (last 24 hours): Temp Pulse Resp BP Pulse Ox 99 F 63 18 142/73 96 02/28/17 08:00 02/28/17 08:00 02/28/17 08:00 02/28/17 09:17 02/28/17 08:00 Intake and Output: 02/28/17 02/28/17 06:59 18:59 Intake Total 780 Balance 780 - Medications Medications: Current Medications Amlodipine Besylate (Norvasc) 5 mg PO DAILY [facility] Last Admin: 02/28/17 09:17 Dose: 5 mg Aspirin (Ecotrin) 81 mg PO MoTh@1000 [facility] Last Admin: 02/27/17 10:41 Dose: 81 mg Calcitonin [place] (Miacalcin) 200 iu NS DAILY [facility] Last Admin: 02/28/17 09:20 Dose: 1 spr Dexamethasone (Decadron) 16 mg PO FRI [facility] Last Admin: 02/28/17 09:14 Dose: 16 mg Heparin Sodium (Porcine) (Heparin) 5,000 units SC Q8H [facility]CE PRN Reason: Protocol Last Admin: 02/28/17 06:56 Dose: 5,000 units Levothyroxine Sodium (Synthroid) 25 mcg PO DAILY [facility] Last Admin: 02/28/17 09:15 Dose: 25 mcg Megestrol Acetate (Megace) 400 mg PO DAILY [facility] Last Admin: 02/28/17 09:20 Dose: 400 mg Metoprolol Tartrate (Lopressor) 50 mg PO DAILY [facility] Last Admin: 02/28/17 09:15 Dose: 50 mg Morphine Sulfate (Morphine) 1 mg IVP Q4H PRN PRN Reason: Pain, severe (8-10) Non-Formulary Medication (Ixazomib Citrate [Ninlaro]) 3 mg PO QWK [facility] Non-Formulary Medication (Lenalidomide [Revlimid]) 25 mg PO DAILY [facility] Last Admin: 02/28/17 09:16 Dose: Not Given Oxycodone/Acetaminophen (Percocet 5/325 Mg Tab) 1 tab PO Q6H PRN PRN Reason: Pain, moderate (4-7) Stop: 02/28/17 22:01 Last Admin: 02/27/17 10:41 Dose: 1 tab Pantoprazole Sodium (Protonix Ec Tab) 40 mg PO 629 [facility] Last Admin: 02/28/17 06:56 Dose: 40 mg Polyethylene Glycol (Miralax) 17 gm PO DAILY [facility] Last Admin: 02/28/17 09:17 Dose: 17 gm Prednisone (Prednisone Tab) 2.5 mg PO DAILY [facility] Last Admin: 02/28/17 09:15 Dose: 2.5 mg - Labs Labs: 02/28/17 06:30 02/28/17 06:30 - Constitutional Appears: Well, Non-toxic, No Acute Distress - Head Exam Head Exam: ATRAUMATIC, NORMAL INSPECTION, NORMOCEPHALIC - Eye Exam Eye Exam: EOMI, PERRL - ENT Exam ENT Exam: Mucous Membranes Moist - Neck Exam Neck Exam: Normal Inspection. absent: Lymphadenopathy, Tenderness, Thyromegaly - Respiratory Exam Respiratory Exam: Clear to Ausculation Bilateral. absent: Rales, Rhonchi, Wheezes - Cardiovascular Exam Cardiovascular Exam: RRR, +S1, +S2. absent: Gallop, Rubs, Murmur - GI/Abdominal Exam GI & Abdominal Exam: Soft. absent: Distended, Firm, Guarding, Rigid, Tenderness , Rebound - Neurological Exam Neurological Exam: Alert, Awake, Oriented x3 - Psychiatric Exam Psychiatric exam: Normal Affect, Normal Mood - Skin Skin Exam: Dry, Intact, Normal Color, Warm Assessment and Plan - Assessment and Plan (Free Text) Plan: 1. Low back pain * Hip/Pelvis x-ray from 02/24 was reviewed; no acute fractures reported; see full report * CXR revealed no active disease * CT Pelvis negative for fractures; see full report * Lumbar CT revealed subacute compression fractures T12, L1, L3, L5 vertebral bodies; Mild disc herniation at L3-L4, L4-L5, L5-S1; see full report * MRI Lumbar spine reviewed; revealed multiple vertebral compression fractures at T10, L1, L2, L3, and L5 vertebra; bilateral facet joint arthropathy at T12-L1 , L1-L2, L2-L3; see full report for further findings * Patient encouraged to participate in physical therapy with aid of TLSO brace * Patient declined IR intervention, namely kyphoplasty * Patient was also evaluated by neurosurgery and is currently not a case for surgical intervention; Recommended use of TLSO brace and may consider vertebroplasty in the future should conservative measures fail * Orthopedic surgery consulted - Dr. Paulino * IR consulted - Dr. Hearn * Heme/Onc consulted - Dr. Huffman * Neurosx consulted - Dr. Suarez 2. Multiple Myeloma * Prednisone 2.5mg po qd * Ninlaro 3mg po qwk * Decadron 4mg 16mg po qfri * Megace 400mg po qd * heme/onc consulted - Dr. Huffman 3. Chronic Kidney Disease stage 3 * Currently within baseline, will continue to monitor renal function 4. Hypothyroidism * Continue home synthroid 5. Hypertension * Continue Norvasc 5mg po qd * Continue Metoprolol 50mg po qd 6. GI/DVT Prophylaxis * Protonix/heparin 7. Constipation * Relistor 12mg once * Continue Miralax Disposition: Patient to be evaluated further by physical therapy; TCU evaluation also pending. Depending on how she does with physical therapy, she may either need to continue with rehabilitation or reconsider surgical options. Patient seen, reviewed, and case discussed with attending, Dr. Young <Irwin Young - Last Filed: 03/07/17 09:22> Objective - Vital Signs/Intake and Output Vital Signs (last 24 hours): Temp Pulse Resp BP Pulse Ox 98.7 F 63 18 157/88 H 98 03/01/17 08:00 03/01/17 10:52 03/01/17 08:00 03/01/17 10:52 03/01/17 08:00 - Labs Labs: 02/28/17 06:30 02/28/17 06:30 Attending/Attestation - Attestation I have personally seen and examined this patient.: Yes I have fully participated in the care of the patient.: Yes I have reviewed all pertinent clinical information, including history, physical exam and plan: Yes Notes (Text): 03/07/17 09:22 Medical record note made by the resident after discussion with my direction and input after the patient was personally seen and examined by me. I have reviewed the chart and agree that the record accurately reflects by personal performance of the history, physical exam, data review, and medical decision-making, in the course for the patient. I have also personally directed the plan of care.
[2017-02-28] MEDS: Oxycodone/Acetaminophen 5/325 mg Tab PO PRN (12:55)
[2017-02-28 15:48] VITALS: O2SAT 98
[2017-03-01] MEDS: Pantoprazole 40 mg EC Tab PO SCH (05:48)
[2017-03-01 08:31] VITALS: TEMP 98.7
[2017-03-01] MEDS: Levothyroxine 25 MCG TAB PO SCH (10:53)
[2017-03-01] MEDS: POLYETHYLENE GLYCOL 3350 17 GM/Dose PACKET PO SCH ×2 (10:54→11:06)
[2017-03-01] MEDS: Calcitonin 200 Int Units/Inh Nasal Spray (3.7 ml) NS SCH (10:54)
[2017-03-01 10:56] VITALS: BP 157/88
[2017-03-01] MEDS ORDERED: Oxycodone/Acetaminophen 5/325 mg Tab PO PRN (10:59)
--- NOTE | 2017-03-01 11:19 | CP.PCM.PN ---
<Jerrod Brice - Last Filed: 03/01/17 11:51> Subjective - Date & Time of Evaluation Date of Evaluation: 03/01/17 Time of Evaluation: 11:15 - Subjective Subjective: Medicine progress note - Jerrod Babs PGY1 Patient seen and examined at bedside. No acute overnight events or new complaints. Patient is currently agreeable to continue with physical therapy as tolerated. She has been accepted to TCU however we will need to assess her progress with physical therapy prior to transfer. She may require subacute rehabilitation instead of TCU. Patient is aware of current plan and is agreeable to continue with PT. Denies chest pain, palpitations, SOB. Objective - Vital Signs/Intake and Output Vital Signs (last 24 hours): Temp Pulse Resp BP Pulse Ox 98.7 F 63 18 157/88 H 98 03/01/17 08:00 03/01/17 10:52 03/01/17 08:00 03/01/17 10:52 03/01/17 08:00 Intake and Output: 03/01/17 03/01/17 06:59 18:59 Intake Total 600 Balance 600 - Medications Medications: Current Medications Amlodipine Besylate (Norvasc) 5 mg PO DAILY [facility] Last Admin: 03/01/17 10:52 Dose: 5 mg Aspirin (Ecotrin) 81 mg PO MoTh@1000 [facility] Last Admin: 02/27/17 10:41 Dose: 81 mg Benzonatate (Tessalon Perles) 100 mg PO TID PRN PRN Reason: Cough Last Admin: 03/01/17 11:09 Dose: 100 mg Calcitonin [place] (Miacalcin) 200 iu NS DAILY [facility] Last Admin: 03/01/17 10:54 Dose: 1 spr Dexamethasone (Decadron) 16 mg PO FRI [facility] Last Admin: 02/28/17 09:14 Dose: 16 mg Heparin Sodium (Porcine) (Heparin) 5,000 units SC Q8H [facility] PRN Reason: Protocol Last Admin: 03/01/17 05:48 Dose: 5,000 units Levothyroxine Sodium (Synthroid) 25 mcg PO DAILY [facility] Last Admin: 03/01/17 10:53 Dose: 25 mcg Megestrol Acetate (Megace) 400 mg PO DAILY [facility] Last Admin: 02/28/17 09:20 Dose: 400 mg Metoprolol Tartrate (Lopressor) 50 mg PO DAILY [facility] Last Admin: 03/01/17 10:52 Dose: 50 mg Non-Formulary Medication (Lenalidomide [Revlimid]) 25 mg PO DAILY [facility] Non-Formulary Medication (Ixazomib Citrate [Ninlaro]) 3 mg PO QWK [facility] Oxycodone/Acetaminophen (Percocet 5/325 Mg Tab) 1 tab PO Q6H PRN PRN Reason: Pain, moderate (4-7) Stop: 03/04/17 11:00 Last Admin: 03/01/17 11:09 Dose: 1 tab Pantoprazole Sodium (Protonix Ec Tab) 40 mg PO 629 [facility] Last Admin: 03/01/17 05:48 Dose: 40 mg Polyethylene Glycol (Miralax) 17 gm PO DAILY [facility] Last Admin: 03/01/17 11:06 Dose: Not Given Prednisone (Prednisone Tab) 2.5 mg PO DAILY [facility] Last Admin: 03/01/17 10:53 Dose: 2.5 mg - Labs Labs: 02/28/17 06:30 02/28/17 06:30 - Constitutional Appears: Non-toxic, No Acute Distress - Head Exam Head Exam: ATRAUMATIC, NORMAL INSPECTION, NORMOCEPHALIC - Eye Exam Eye Exam: EOMI, PERRL - ENT Exam ENT Exam: Mucous Membranes Moist - Neck Exam Neck Exam: Normal Inspection - Respiratory Exam Respiratory Exam: Clear to Ausculation Bilateral. absent: Rales, Rhonchi, Wheezes - Cardiovascular Exam Cardiovascular Exam: RRR, +S1, +S2. absent: Diastolic murmur, JVD, Rubs, Murmur - GI/Abdominal Exam GI & Abdominal Exam: Soft, Normal Bowel Sounds. absent: Distended, Firm, Guarding, Rigid, Tenderness, Rebound - Back Exam Additional comments: low back tenderness to palpation as well as right hip tenderness; motor strength reduced - Neurological Exam Neurological Exam: Alert, Awake, Oriented x3 - Psychiatric Exam Psychiatric exam: Normal Affect, Normal Mood - Skin Skin Exam: Dry, Intact, Normal Color, Warm Assessment and Plan - Assessment and Plan (Free Text) Plan: 1. Low back pain * Hip/Pelvis x-ray from 02/24 was reviewed; no acute fractures reported; see full report * CXR revealed no active disease * CT Pelvis negative for fractures; see full report * Lumbar CT revealed subacute compression fractures T12, L1, L3, L5 vertebral bodies; Mild disc herniation at L3-L4, L4-L5, L5-S1; see full report * MRI Lumbar spine reviewed; revealed multiple vertebral compression fractures at T10, L1, L2, L3, and L5 vertebra; bilateral facet joint arthropathy at T12-L1 , L1-L2, L2-L3; see full report for further findings * Patient encouraged to participate in physical therapy with aid of TLSO brace * Patient declined IR intervention, namely kyphoplasty * Patient was also evaluated by neurosurgery and is currently not a case for surgical intervention; Recommended use of TLSO brace and may consider vertebroplasty in the future should conservative measures fail. * Patient was accepted by TCU however to be evaluated by physical therapy today prior to transfer to TCU. May require longer care at a subacute rehab. * Orthopedic surgery consulted - Dr. Paulino * IR consulted - Dr. Hearn * Heme/Onc consulted - Dr. Huffman * Neurosx consulted - Dr. Suarez 2. Multiple Myeloma * Prednisone 2.5mg po qd * Ninlaro 3mg po qwk * Decadron 4mg 16mg po qfri * Megace 400mg po qd * heme/onc consulted - Dr. Huffman 3. Chronic Kidney Disease stage 3 * Currently within baseline, will continue to monitor renal function 4. Hypothyroidism * Continue home synthroid 5. Hypertension * Continue Norvasc 5mg po qd * Continue Metoprolol 50mg po qd 6. GI/DVT Prophylaxis * Protonix/heparin 7. Constipation * Relistor 12mg once * Continue Miralax Disposition: Patient to be evaluated further by physical therapy; TCU evaluation also pending. Depending on how she does with physical therapy, she will either be transferred to TCU for further care or may need subacute rehab for longer course of physical therapy. Patient seen, reviewed, and case discussed with attending, Dr. Young <Irwin Young - Last Filed: 03/07/17 08:53> Objective - Vital Signs/Intake and Output Vital Signs (last 24 hours): Temp Pulse Resp BP Pulse Ox 98.7 F 63 18 157/88 H 98 03/01/17 08:00 03/01/17 10:52 03/01/17 08:00 03/01/17 10:52 03/01/17 08:00 - Labs Labs: 02/28/17 06:30 02/28/17 06:30 Attending/Attestation - Attestation I have personally seen and examined this patient.: Yes I have fully participated in the care of the patient.: Yes I have reviewed all pertinent clinical information, including history, physical exam and plan: Yes Notes (Text): 03/07/17 08:52 Medical record note made by the resident after discussion with my direction and input after the patient was personally seen and examined by me. I have reviewed the chart and agree that the record accurately reflects by personal performance of the history, physical exam, data review, and medical decision-making, in the course for the patient. I have also personally directed the plan of care.
[2017-03-01] MEDS: Megestrol Acetate 40 mg/ml Cup PO SCH (11:27)
--- NOTE | 2017-03-01 12:12 | CP.PCM.DIS ---
<Jerrod Brice - Last Filed: 03/03/17 13:02> Provider - Provider Date of Admission: 02/26/17 15:05 Attending physician: Adrian Ding MD Primary care physician: Adrian Ding MD Consults: Neurosurgery - Dr. Paulson Ortho - Dr. Paulino IR - Dr. Hearn Heme/Onc - Dr. Huffman Time Spent in preparation of Discharge (in minutes): 30 Hospital Course - Lab Results Lab Results: Most Recent Lab Values WBC 4.1 10^3/ul (4.5-11.0) L 02/28/17 06:30 RBC 3.12 10^6/uL (3.5-6.1) L 02/28/17 06:30 Hgb 9.9 gm/dL (12.0-16.0) L 02/28/17 06:30 Hct 29.1 % (36.0-48.0) L 02/28/17 06:30 MCV 93.3 fL (80.0-105.0) 02/28/17 06:30 MCH 31.7 pg (25.0-35.0) 02/28/17 06:30 MCHC 34.0 g/dl (31.0-37.0) 02/28/17 06:30 RDW 17.0 % (11.5-14.5) H 02/28/17 06:30 Plt Count 200 10^3/uL (120.0-450.0) 02/28/17 06:30 MPV 9.4 fl (7.0-11.0) 02/28/17 06:30 Gran % 69.0 % (50.0-68.0) H 02/26/17 07:30 Lymph % (Auto) 16.8 % (22.0-35.0) L 02/26/17 07:30 [place] % (Auto) 13.4 % (1.0-6.0) H 02/26/17 07:30 Eos % (Auto) 0.4 % (1.5-5.0) L 02/26/17 07:30 Baso % (Auto) 0.4 % (0.0-3.0) 02/26/17 07:30 Gran # 3.77 (1.4-6.5) 02/26/17 07:30 Lymph # 0.9 (1.2-3.4) L 02/26/17 07:30 [place] # 0.7 (0.1-0.6) H 02/26/17 07:30 Eos # 0.0 (0.0-0.7) 02/26/17 07:30 Baso # 0.02 K/mm3 (0.0-2.0) 02/26/17 07:30 Sodium 136 mmol/L (132-148) 02/28/17 06:30 Potassium 4.3 mmol/L (3.6-5.0) 02/28/17 06:30 Chloride 104 mmol/L (95-110) 02/28/17 06:30 Carbon Dioxide 27 mmol/L (21-33) 02/28/17 06:30 Anion Gap 9 (10-20) L 02/28/17 06:30 BUN 24 mg/dL (7-21) H 02/28/17 06:30 Creatinine 1.4 mg/dL (0.5-1.4) 02/28/17 06:30 Est GFR ( Amer) 44 02/28/17 06:30 Est GFR (Non-Af Amer) 37 02/28/17 06:30 Random Glucose 71 mg/dL (70-110) 02/28/17 06:30 Calcium 8.4 mg/dL (8.4-10.5) 02/28/17 06:30 Phosphorus 2.9 mg/dL (2.5-4.5) 02/26/17 07:30 Magnesium 2.0 mg/dL (1.7-2.2) 02/26/17 07:30 Total Bilirubin 0.5 mg/dL (0.2-1.3) 02/28/17 06:30 AST 40 U/L (15-39) H 02/28/17 06:30 ALT 60 U/L (7-56) H 02/28/17 06:30 Alkaline Phosphatase 64 U/L (38-133) 02/28/17 06:30 Lactate Dehydrogenase 943 U/L (333-699) H 02/26/17 07:13 Total Protein 6.1 g/dL (5.8-8.3) 02/28/17 06:30 Albumin 3.1 g/dL (3.0-4.8) 02/28/17 06:30 Globulin 3.0 gm/dL 02/28/17 06:30 Albumin/Globulin Ratio 1.1 (1.1-1.8) 02/28/17 06:30 Sfbf-1-Nkcqwrwhopaqt 1.94 mg/L (<or= 2.51) 02/26/17 07:14 Urine Color Yellow (YELLOW) 02/26/17 00:40 Urine Appearance Clear (CLEAR) 02/26/17 00:40 Urine pH 6.0 (4.7-8.0) 02/26/17 00:40 Ur Specific Bryan 1.020 (1.005-1.035) 02/26/17 00:40 Urine Protein Trace mg/dL (<30 mg/dL) H 02/26/17 00:40 Urine Glucose (UA) Negative mg/dL (NEGATIVE) 02/26/17 00:40 Urine Ketones Negative mg/dL (NEGATIVE) 02/26/17 00:40 Urine Blood Negative (NEGATIVE) 02/26/17 00:40 Urine Nitrate Negative (NEGATIVE) 02/26/17 00:40 Urine Bilirubin Negative (NEGATIVE) 02/26/17 00:40 Urine Urobilinogen 0.2 E.U./dL (<1 E.U./dL) 02/26/17 00:40 Ur Leukocyte Esterase Negative Samia/uL (NEGATIVE) 02/26/17 00:40 Urine RBC 0 - 2 /hpf (0-2) 02/26/17 00:40 Urine WBC 0 - 2 /hpf (0-6) 02/26/17 00:40 Ur Epithelial Cells 0 - 2 /hpf (0-5) 02/26/17 00:40 IgG 860.9 mg/dL (700.0-1600.0) 02/26/17 07:12 IgA 44.2 mg/dL (70.0-400.0) L 02/26/17 07:12 IgM 31.6 mg/dL (40.0-230.0) L 02/26/17 07:12 - Hospital Course Hospital Course: Pt is a 76 yo -[place] female w/ PMHx of multiple myeloma on chemo and radiation, pituitary adenoma s/p surgery, uterine fibroids s/p hysterectomy and b/l oophorectomy, hypothyroidism secondary to thyroidectomy, and HTN presented to the ED c/o R hip and back pain. Pt came into the ED 2 days prior for the same complaint but X-ray of R hip/pelvis came back negative and patient was sent home. On this presentation, she couldnt bear any weight on her R leg and the pain was much worse. Lumbar CT showed subacute compression fractures of T12 , L1, L3, L5 and moderate degenerative disc disease at L3-L4, L4-L5, L5-S1 level (see full report). Pelvic CT showed no pelvic fracture. CXR showed no active disease. Orthopedic surgery was consulted. MRI of lumbar spine was ordered and it showed multiple vertebral compression fractures at T10, L2, and L5 and chronic appearing compression fractures of L1 and L3. The degree of height loss was greatest at T10 and L5, where there is greater than 50% compression deformity (see full report). As per Dr. Paulino, neurosurgery consult was recommended. Neurosurgery was consulted and recommended physical therapy with TLSO brace as there was no need for surgical management at this time. IR was consulted but patient denied kyphoplasty. The patient was against surgical management and wished to try physical therapy. PT evaluation recommended subacute rehab and continuation of PT. Pain management was consulted to keep pain under control. Given patients history of multiple myeloma , heme/onc was on board with the case. Patient was transferred to TCU with the understanding that if conservative approach fails, she may have to re-consider surgical options. Discharge Exam - Head Exam Head Exam: ATRAUMATIC, NORMAL INSPECTION, NORMOCEPHALIC - Eye Exam Eye Exam: EOMI, PERRL - ENT Exam ENT Exam: Mucous Membranes Moist - Neck Exam Neck exam: Normal Inspection - Respiratory Exam Respiratory Exam: Clear to PA & Lateral. absent: Rales, Rhonchi, Wheezes - Cardiovascular Exam Cardiovascular Exam: RRR, +S1, +S2. absent: Gallop, JVD, Rubs - GI/Abdominal Exam GI & Abdominal Exam: Soft. absent: Distended, Firm, Guarding, Rigid, Tenderness - Extremities Exam Additional comments: Right hip pain as well as right-sided low back pain motor strength 5/5 bilaterally in upper and lower extremities sensory intact throughout - Neurological Exam Neurological exam: Alert, CN II-XII Intact, Oriented x3 - Psychiatric Exam Psychiatric exam: Normal Affect, Normal Mood - Skin Skin Exam: Dry, Intact, Normal Color, Warm Discharge Plan - Follow Up Plan Condition: STABLE Disposition: TRANSF TO SNF Instructions: Pneumococcal Vaccine for Adults (DC), Vertebral Compression Fracture (DC), Back Pain (GEN), Hip Pain (GEN) Additional Instructions: Patient being transferred to TCU. Referrals: Adrian Ding MD [Primary Care Provider] - <Irwin Young - Last Filed: 03/07/17 08:54> Provider - Provider Date of Admission: 02/26/17 15:05 Attending physician: Adrian Ding MD Primary care physician: Adrian Ding MD Hospital Course - Lab Results Lab Results: Most Recent Lab Values WBC 4.1 10^3/ul (4.5-11.0) L 02/28/17 06:30 RBC 3.12 10^6/uL (3.5-6.1) L 02/28/17 06:30 Hgb 9.9 gm/dL (12.0-16.0) L 02/28/17 06:30 Hct 29.1 % (36.0-48.0) L 02/28/17 06:30 MCV 93.3 fL (80.0-105.0) 02/28/17 06:30 MCH 31.7 pg (25.0-35.0) 02/28/17 06:30 MCHC 34.0 g/dl (31.0-37.0) 02/28/17 06:30 RDW 17.0 % (11.5-14.5) H 02/28/17 06:30 Plt Count 200 10^3/uL (120.0-450.0) 02/28/17 06:30 MPV 9.4 fl (7.0-11.0) 02/28/17 06:30 Gran % 69.0 % (50.0-68.0) H 02/26/17 07:30 Lymph % (Auto) 16.8 % (22.0-35.0) L 02/26/17 07:30 [place] % (Auto) 13.4 % (1.0-6.0) H 02/26/17 07:30 Eos % (Auto) 0.4 % (1.5-5.0) L 02/26/17 07:30 Baso % (Auto) 0.4 % (0.0-3.0) 02/26/17 07:30 Gran # 3.77 (1.4-6.5) 02/26/17 07:30 Lymph # 0.9 (1.2-3.4) L 02/26/17 07:30 [place] # 0.7 (0.1-0.6) H 02/26/17 07:30 Eos # 0.0 (0.0-0.7) 02/26/17 07:30 Baso # 0.02 K/mm3 (0.0-2.0) 02/26/17 07:30 Sodium 136 mmol/L (132-148) 02/28/17 06:30 Potassium 4.3 mmol/L (3.6-5.0) 02/28/17 06:30 Chloride 104 mmol/L (95-110) 02/28/17 06:30 Carbon Dioxide 27 mmol/L (21-33) 02/28/17 06:30 Anion Gap 9 (10-20) L 02/28/17 06:30 BUN 24 mg/dL (7-21) H 02/28/17 06:30 Creatinine 1.4 mg/dL (0.5-1.4) 02/28/17 06:30 Est GFR ( Amer) 44 02/28/17 06:30 Est GFR (Non-Af Amer) 37 02/28/17 06:30 Random Glucose 71 mg/dL (70-110) 02/28/17 06:30 Calcium 8.4 mg/dL (8.4-10.5) 02/28/17 06:30 Phosphorus 2.9 mg/dL (2.5-4.5) 02/26/17 07:30 Magnesium 2.0 mg/dL (1.7-2.2) 02/26/17 07:30 Total Bilirubin 0.5 mg/dL (0.2-1.3) 02/28/17 06:30 AST 40 U/L (15-39) H 02/28/17 06:30 ALT 60 U/L (7-56) H 02/28/17 06:30 Alkaline Phosphatase 64 U/L (38-133) 02/28/17 06:30 Lactate Dehydrogenase 943 U/L (333-699) H 02/26/17 07:13 Total Protein 6.1 g/dL (5.8-8.3) 02/28/17 06:30 Albumin 3.1 g/dL (3.0-4.8) 02/28/17 06:30 Globulin 3.0 gm/dL 02/28/17 06:30 Albumin/Globulin Ratio 1.1 (1.1-1.8) 02/28/17 06:30 Vnab-6-Cnvwootthdyma 1.94 mg/L (<or= 2.51) 02/26/17 07:14 Urine Color Yellow (YELLOW) 02/26/17 00:40 Urine Appearance Clear (CLEAR) 02/26/17 00:40 Urine pH 6.0 (4.7-8.0) 02/26/17 00:40 Ur Specific [place] 1.020 (1.005-1.035) 02/26/17 00:40 Urine Protein Trace mg/dL (<30 mg/dL) H 02/26/17 00:40 Urine Glucose (UA) Negative mg/dL (NEGATIVE) 02/26/17 00:40 Urine Ketones Negative mg/dL (NEGATIVE) 02/26/17 00:40 Urine Blood Negative (NEGATIVE) 02/26/17 00:40 Urine Nitrate Negative (NEGATIVE) 02/26/17 00:40 Urine Bilirubin Negative (NEGATIVE) 02/26/17 00:40 Urine Urobilinogen 0.2 E.U./dL (<1 E.U./dL) 02/26/17 00:40 Ur Leukocyte Esterase Negative Samia/uL (NEGATIVE) 02/26/17 00:40 Urine RBC 0 - 2 /hpf (0-2) 02/26/17 00:40 Urine WBC 0 - 2 /hpf (0-6) 02/26/17 00:40 Ur Epithelial Cells 0 - 2 /hpf (0-5) 02/26/17 00:40 IgG 860.9 mg/dL (700.0-1600.0) 02/26/17 07:12 IgA 44.2 mg/dL (70.0-400.0) L 02/26/17 07:12 IgM 31.6 mg/dL (40.0-230.0) L 02/26/17 07:12 Ewa Gentry/Lambda Light Chain see note H 02/26/17 07:14 Free Ewa Gentry Light Chains 33.0 mg/L (3.3-19.4) H 02/26/17 07:14 Free Lambda Light Chain 13.3 mg/L (5.7-26.3) 02/26/17 07:14 Free Ewa Gentry/Lambda Ratio 2.48 (0.26-1.65) H 02/26/17 07:14 Attending/Attestation - Attestation I have personally seen and examined this patient.: Yes I have fully participated in the care of the patient.: Yes I have reviewed all pertinent clinical information, including history, physical exam and plan: Yes Notes (Text): 03/07/17 08:54 Medical record note made by the resident after discussion with my direction and input after the patient was personally seen and examined by me. I have reviewed the chart and agree that the record accurately reflects by personal performance of the history, physical exam, data review, and medical decision-making, in the course for the patient. I have also personally directed the plan of care.
[2017-03-01 14:47] LABS: KAPPA/LAMBDA FREE RATIO 2.48 (0.26-1.65)
[2017-03-02] MEDS ORDERED: LENALIDOMIDE 25 MG PO SCH (10:00)
[2017-03-04] MEDS ORDERED: IXAZOMIB CITRATE 3 MG PO SCH (10:00)
== END 2017-03-01 16:15 | DRG 543 ==
LOC: ED 16:41 → ERH 19:37 → 5RSO 22:34 → OBSVTOIN 02-26 15:05
PROVIDERS: ADMIT Internal Medicine; ATTEND Internal Medicine
DX: M48.56XA Collapsed vertebra, not elsewhere classified, lumbar region, initial encounter for fracture (principal); C90.00 Multiple myeloma not having achieved remission; M48.54XA Collapsed vertebra, not elsewhere classified, thoracic region, initial encounter for fracture; N17.9 Acute kidney failure, unspecified; S22.49XA Multiple fractures of ribs, unspecified side, initial encounter for closed fracture; N28.1 Cyst of kidney, acquired; J98.11 Atelectasis; M51.36 Other intervertebral disc degeneration, lumbar region; M51.37 Other intervertebral disc degeneration, lumbosacral region; I25.10 Atherosclerotic heart disease of native coronary artery without angina pectoris; I10 Essential (primary) hypertension; E89.0 Postprocedural hypothyroidism; K59.00 Constipation, unspecified; Z79.82 Long term (current) use of aspirin; Z90.710 Acquired absence of both cervix and uterus; Z92.21 Personal history of antineoplastic chemotherapy; Z87.891 Personal history of nicotine dependence; Z83.3 Family history of diabetes mellitus; Z82.49 Family history of ischemic heart disease and other diseases of the circulatory system; Z80.3 Family history of malignant neoplasm of breast; Z79.899 Other long term (current) drug therapy; Z88.2 Allergy status to sulfonamides; Z90.722 Acquired absence of ovaries, bilateral; R74.0 Nonspecific elevation of levels of transaminase and lactic acid dehydrogenase [LDH]; M11.20 Other chondrocalcinosis, unspecified site; K31.89 Other diseases of stomach and duodenum; M51.27 Other intervertebral disc displacement, lumbosacral region; N18.3 Chronic kidney disease, stage 3 (moderate); I12.9 Hypertensive chronic kidney disease with stage 1 through stage 4 chronic kidney disease, or unspecified chronic kidney disease

== ENCOUNTER 2017-03-01 16:15 | Inpatient (IN) | payer OTHER, BC ==
[2017-03-01 17:13] VITALS: BMI 20.3
[2017-03-02] MEDS: Pantoprazole 40 mg EC Tab PO SCH (06:40)
[2017-03-02] MEDS: Levothyroxine 25 MCG TAB PO SCH (06:40)
[2017-03-02] MEDS: Morphine 2 mg/ml ISec IVP PRN ×2 (06:50→19:59)
[2017-03-02 09:05] LABS: HEMATOCRIT 29.2 % (36.0-48.0); MEAN CELL VOLUME 93.6 fL (80.0-105.0); MEAN CORPUSCULAR HEMOGLOBIN 31.4 pg (25.0-35.0); MEAN CORPUSCULAR HGB CONC 33.6 g/dl (31.0-37.0); MEAN PLATELET VOLUME 9.7 fl (7.0-11.0)
[2017-03-02 09:11] LABS: BILIRUBIN,TOTAL 0.4 mg/dL (0.2-1.3); CALCIUM 8.8 mg/dL (8.4-10.5); POTASSIUM 4.2 mmol/L (3.6-5.0); TOTAL PROTEIN 6.4 g/dL (5.8-8.3)
[2017-03-02] MEDS: Calcitonin 200 Int Units/Inh Nasal Spray (3.7 ml) NS SCH (09:33)
[2017-03-02] MEDS: POLYETHYLENE GLYCOL 3350 17 GM/Dose PACKET PO SCH (09:33)
[2017-03-02] MEDS: Megestrol Acetate 40 mg/ml Cup PO SCH (09:33)
[2017-03-02] MEDS ORDERED: Home Med 1 UNIT PO SCH ×2 (10:00)
[2017-03-02] MEDS: LENALIDOMIDE 25 MG PO SCH (10:24)
--- NOTE | 2017-03-02 20:14 | DS ---
The patient is a 76-year-old female with unfortunately a known diagnosis of metastatic multiple myelo ma. She was admitted to the hospital with severe right hip pain. Apparently, she recently just campa sferred from the acute care hospital to the transitional care unit. She continues to complain bitter ly of right hip pain. Interestingly, she specifically denies any significant low back pain. She has had a little low back pain and she states this is chronic. She states she has known compression fra ctures and again, overwhelmingly her complaint is that of right hip pain. She has been unable to walk for the past 5 days or so. However, she denies any overt weakness in the legs. She denies any numbness or autonomic dysfunction. Her past medical history, medications, allergies, social history all extensively reviewed in the EMR. PHYSICAL EXAMINATION: She does have 5/5 strength throughout the left leg and the proximal right leg. She does have excellent knee extension and flexion; however, hip flexion may be weak, although this is somewhat pain related. She has exquisite tenderness to palpation of the right hip bursa. ____ m aneuvers of the right hip bring on her pain. She has good sensation throughout. MRI of the LS spine documents multiple compression fractures, particularly at L5, L1. There really i s no significant retropulsion. There is no instability. There is no significant neural element comp romise. IMPRESSION AND PLAN: Overwhelming suffering with right hip problem. I would certainly recommend ort hopedic evaluation. From my standpoint, I am not sure I would even recommend an external orthosis as I believe the patient's true low back pain is relatively minimal. Should this worsen, obviously a T LSO brace could be considered. Faheem Suarez MD cc: [id number] TT: 03/02/2017 20:13:39 sn
[2017-03-03] MEDS: Levothyroxine 25 MCG TAB PO SCH (06:09)
[2017-03-03] MEDS: Pantoprazole 40 mg EC Tab PO SCH (06:09)
--- NOTE | 2017-03-03 08:02 | CON ---
DATE: 03/02/2017 She is a patient now transferred from room 575 to 322, bed 1, which is transitional care unit. She h as the problem of multiple compression fractures of the lumbar spine and dorsal spine, felt to be ost eoporotic type of fracture. Seen by Dr. Huffman and the spine surgeon. Mild disk herniations are also present. The MRI report was subacute compression fractures T12, L1, L3 and L5. It is felt to be fr om osteopenia, so the back surgeon recommended a back brace and physical therapy to improve her stren gth as she does not have any significant paresis other than decreased reflexes. She can do a straigh t leg raise, weak, but the back surgeon recommended physical therapy to strengthen her back, so she i s here now to get physical therapy, ambulation with a walker. She does not want to use the brace for her back protection, but she is going to have a limited ability to ambulate. We have to watch her c losely and she might have to be seen again by the spine surgeon if she does not progress well. FINAL DIAGNOSES: Multiple compression fractures of lumbar spine and to be followed closely and geetha jackson get another x-ray before she leaves the hospital. Bharathi Paulino DO cc: [id number] TT: 03/02/2017 14:24:29 Confirmation # [id number] Dictation # [id number] en
--- NOTE | 2017-03-03 09:26 | CON ---
DATE: 03/03/2017 SUBJECTIVE: This is a 76-year-old woman with 2 major problems. Number 1 is multiple myeloma. She h as had multiple myeloma now for about 2 years. She presented with thoracic back pain at that time an d she received radiation therapy to that area. She had osteoporosis and an osteoporotic fracture at that point, but she was given radiation therapy and she has been on chemotherapy with Ninlaro 1 table t once a week 3 out of 4 weeks, and Revlimid daily for 21 days out of 28 days, and Decadron 12 mg p.o . once a week, and her numbers have been quite excellent for the last many months. Her second major problem is back pain. She presented about 2 years ago with thoracic back pain. More recently she kwon s been having lumbar pain and she presented to the Emergency Room with an inability to really walk be cause of the pain that was new and radiating down her right leg and right hip. PHYSICAL EXAMINATION: SKIN: No petechiae, no bruises. HEENT: Anicteric. NODES: None palpable in the axillary, cervical, supraclavicular or inguinal regions. LUNGS: Clear at present. No vertebral tenderness. It is hard for her to move around because of the stiffness in her back, but no specific vertebral tenderness. HEART: S1, S2. ABDOMEN: Shows no liver, no spleen, no tenderness. EXTREMITIES: No edema. CENTRAL NERVOUS SYSTEM: Plantars downgoing bilaterally. LABORATORY DATA: Her x-ray showed lumbar spine subacute fractures and a change in the size of her ve rtebrae. The hip x-rays in not show any lesions. ASSESSMENT AND PLAN: So she is now getting physical therapy and pain medications. Her third problem is I have noticed that her last liver function tests were mildly elevated. SGOT was about 70. This is new. It may be a mistake. It may be secondary to some medication she recently received. I woul d advise that this be followed up with a repeat liver function test. I told her not to take any chem otherapy at this point. She is due to start her Ninlaro and Revlimid, but I told her to wait until s he is out of the hospital before we restart that and she is aware of that. Wicho Nathanael JORGE cc: [phone] TT: 03/03/2017 09:26:13 Confirmation # [id number] Dictation # [id number] jn
[2017-03-03] MEDS: LENALIDOMIDE 25 MG PO SCH (10:06)
[2017-03-03] MEDS: Megestrol Acetate 40 mg/ml Cup PO SCH (10:07)
[2017-03-03] MEDS: Calcitonin 200 Int Units/Inh Nasal Spray (3.7 ml) NS SCH (10:07)
[2017-03-03] MEDS: POLYETHYLENE GLYCOL 3350 17 GM/Dose PACKET PO SCH (10:07)
--- NOTE | 2017-03-03 11:02 | CP.PCM.HP ---
<Jerrod Brice - Last Filed: 03/03/17 13:17> History of Present Illness - History of Present Illness History of Present Illness: cc: Back pain HPI: Patient is a 76yo Female with a past medical history of multiple myeloma, pituitary adenoma s/p surgery, uterine fibroids s/p hysterectomy and b/l oophorectomy, hypothyroidism and hypertension who presented to the ED c/o severe right hip and low back pain. Patient reported that her right hip pain began approximately 2 weeks prior and she reported that she has been unable to bear any weight on her right leg. Patient also reported that she has developed new onset severe mid lower back pain that began the day prior to presentation to the ED. Patient reported that the pain is 8/10 in severity and that she has chronic leg edema which has been present since she started chemo 2 years ago. Patient denied chest pain, palpitations, SOB, abdominal pain, nausea, vomiting, fever, chills, cough, falls, trauma, numbness , tingling. 12point ROS as per HPI above, otherwise negative PMHx: Multiple myeloma on chemo and radiation, uterine fibroids, hypothyroidism secondary to thyroidectomy, and HTN Past Surgical Hx: thyroidectomy, hysterectomy with b/l oophorectomy, breast mass removal, pituitary adenoma s/p transphenoidal resection x 3, Medications: Reviewed and as per chart Allergies: Sulfa drugs (hives) Social Hx: quit smoking 50 years ago, very occasional alcohol use socially, denies hx of drug abuse Family Hx: breast cancer (mother), HTN, Diabetes (mother and father) PMD: Dr. Ding Heme/onc: Dr. Huffman Present on Admission - Present on Admission Any Indicators Present on Admission: No Past Patient History - Infectious Disease Hx of Infectious Diseases: None - Tetanus Immunizations Tetanus Immunization: Unknown - Past Social History Smoking Status: Never Smoked - CARDIAC Hx Cardiac Disorders: Yes (CAD) Hx Hypercholesterolemia: Yes Hx Hypertension: Yes - PULMONARY Hx Respiratory Disorders: No - NEUROLOGICAL Hx Neurological Disorder: No - HEENT Hx HEENT Problems: No - RENAL Hx Chronic Kidney Disease: No - ENDOCRINE/METABOLIC Hx Hypothyroidism: Yes - HEMATOLOGICAL/ONCOLOGICAL Hx Blood Disorders: Yes Hx Cancer: Yes (back, multiple myeloma 2016) Hx Chemotherapy: Yes (on oral chemotherapy) Other/Comment: pituitary adenoma - INTEGUMENTARY Hx Dermatological Problems: No Other/Comment: multiple ble skin discolorations - MUSCULOSKELETAL/RHEUMATOLOGICAL Hx Arthritis: Yes - GASTROINTESTINAL Hx Gastrointestinal Disorders: Yes (CONSTIPATION,POOR APPETITE ON ENSURE DAILY,) Other/Comment: left side abd pain on and off - GENITOURINARY/GYNECOLOGICAL Hx Genitourinary Disorders: Yes - PSYCHIATRIC Hx Psychophysiologic Disorder: No - SURGICAL HISTORY Hx Surgeries: Yes Hx Hysterectomy: Yes Other/Comment: r breast benign growth removed - ANESTHESIA Hx Anesthesia: No Hx Anesthesia Reactions: No Hx Malignant Hyperthermia: No Meds Allergies/Adverse Reactions: Allergies Allergy/AdvReac Type Severity Reaction Status Date / Time Sulfa (Sulfonamide Allergy RASH Verified 02/25/17 17:07 Antibiotics) Physical Exam - Constitutional Appears: Non-toxic, No Acute Distress - Head Exam Head Exam: ATRAUMATIC, NORMAL INSPECTION, NORMOCEPHALIC - Eye Exam Eye Exam: EOMI, PERRL - ENT Exam ENT Exam: Mucous Membranes Moist - Neck Exam Neck exam: Positive for: Normal Inspection - Respiratory Exam Respiratory Exam: Clear to Auscultation Bilateral. absent: Rales, Rhonchi, Wheezes - Cardiovascular Exam Cardiovascular Exam: RRR, +S1, +S2. absent: Diastolic murmur, Gallop, JVD, Rubs , Systolic Murmur - GI/Abdominal Exam GI & Abdominal Exam: Normal Bowel Sounds, Soft. absent: Distended, Firm, Guarding, Rebound, Rigid, Tenderness - Neurological Exam Neurological exam: Alert, Oriented x3 - Psychiatric Exam Psychiatric exam: Normal Affect, Normal Mood - Skin Skin Exam: Dry, Intact, Normal Color, Warm Results - Vital Signs Recent Vital Signs: Last Vital Signs Temp 99.2 F 03/03/17 06:00 Pulse 95 H 03/03/17 10:08 Resp 18 03/03/17 06:00 BP 120/66 03/03/17 10:08 Pulse Ox 97 03/03/17 06:00 - Labs Result Diagrams: 03/02/17 08:10 03/02/17 08:10 Assessment & Plan - Assessment and Plan (Free Text) Plan: 1. Low back pain * Hip/Pelvis x-ray from 02/24 was reviewed; no acute fractures reported; see full report * CXR revealed no active disease * CT Pelvis negative for fractures; see full report * Lumbar CT revealed subacute compression fractures T12, L1, L3, L5 vertebral bodies; Mild disc herniation at L3-L4, L4-L5, L5-S1; see full report * MRI Lumbar spine reviewed; revealed multiple vertebral compression fractures at T10, L1, L2, L3, and L5 vertebra; bilateral facet joint arthropathy at T12-L1 , L1-L2, L2-L3; see full report for further findings * Patient encouraged to participate in physical therapy with aid of TLSO brace * Patient declined IR intervention, namely kyphoplasty * Patient was also evaluated by neurosurgery and is currently not a case for surgical intervention; Recommended use of TLSO brace and may consider vertebroplasty in the future should conservative measures fail. * Patient currently in TCU undergoing daily physical therapy with aid of TLSO brace as recommended by neurosurgery. Will continue to monitor her progress. * Orthopedic surgery consulted - Dr. Paulino * IR consulted - Dr. Hearn * Heme/Onc consulted - Dr. Huffman * Neurosx consulted - Dr. Suarez 2. Multiple Myeloma * Prednisone 2.5mg po qd * Ninlaro 3mg po qwk * Decadron 4mg 16mg po qfri * Megace 400mg po qd * heme/onc consulted - Dr. Huffman 3. Chronic Kidney Disease stage 3 * Currently within baseline, will continue to monitor renal function 4. Hypothyroidism * Continue home synthroid 5. Hypertension * Continue Norvasc 5mg po qd * Continue Metoprolol 50mg po qd 6. GI/DVT Prophylaxis * Protonix/heparin 7. Constipation * Relistor 12mg once * Continue Miralax Disposition: Patient currently undergoing rehabilitation with physical therapy. We will continue to monitor her progress and make recommendations as needed. Patient seen, reviewed, and case discussed with attending, Dr. Young - Date & Time Date: 03/03/17 Time: 11:03 <Irwin Young - Last Filed: 03/07/17 08:57> Results - Vital Signs Recent Vital Signs: Last Vital Signs Temp 97.7 F 03/06/17 16:00 Pulse 75 03/06/17 16:00 Resp 18 03/06/17 16:00 BP 131/66 03/06/17 16:00 Pulse Ox 99 03/06/17 16:00 - Labs Result Diagrams: 03/06/17 06:00 03/06/17 06:00 Labs: Laboratory Results - last 24 hr 03/05/17 03/07/17 10:27 07:30 Total Bilirubin 0.7 Direct Bilirubin 0.4 AST 41 H ALT 93 H Alkaline Phosphatase 72 Total Protein 6.1 Albumin 3.0 Globulin 3.1 Albumin/Globulin Ratio 1.0 L ACACIA Screen Negative ACACIA Titer TEST NOT PERFORMED ACACIA Titer 2 TEST NOT PERFORMED ACACIA Pattern TEST NOT PERFORMED ACACIA Pattern 2 TEST NOT PERFORMED Smooth Muscle Ab Titer TEST NOT PERFORMED Anti-Smooth Muscle Ab Negative Attending/Attestation - Attestation I have personally seen and examined this patient.: Yes I have fully participated in the care of the patient.: Yes I have reviewed all pertinent clinical information: Yes Notes (Text): 03/07/17 08:57 Medical record note made by the resident after discussion with my direction and input after the patient was personally seen and examined by me. I have reviewed the chart and agree that the record accurately reflects by personal performance of the history, physical exam, data review, and medical decision-making, in the course for the patient. I have also personally directed the plan of care.
--- NOTE | 2017-03-03 14:46 | PN ---
DATE: 03/03/2017 I have reviewed the patient's lumbar MRI. This reveals a severe L5 compression fracture with edema. Healed, old compression fractures of L3, L1, T12, and T10 are noted. The patient has tenderness to palpation in the lower lumbar spine. However, she is still hesitant to undergo a kyphoplasty of L5 at this time. I stated she could continue with her physical therapy and TLSO brace and see how her pain improves. Please contact me if her pain persists and she desires to be considered for a kyphoplasty of L5. Bryan Hearn MD cc: [id number] TT: 03/03/2017 14:45:20 Confirmation # [id number] Dictation # [id number] an MTDD
[2017-03-04] MEDS: Levothyroxine 25 MCG TAB PO SCH (05:20)
[2017-03-04] MEDS: Pantoprazole 40 mg EC Tab PO SCH (05:29)
[2017-03-04 07:35] LABS: ADD MANUAL DIFF? NO
[2017-03-04 07:40] LABS: BASO # 0.05 K/mm3 (0.0-2.0); BASO % 0.7 % (0.0-3.0); EOS % 0.3 % (1.5-5.0); GRAN % 59.3 % (50.0-68.0); HEMATOCRIT 28.6 % (36.0-48.0); LYMPH # 2.2 (1.2-3.4); LYMPH % 31.3 % (22.0-35.0); MEAN CELL VOLUME 93.8 fL (80.0-105.0); MEAN CORPUSCULAR HEMOGLOBIN 31.8 pg (25.0-35.0); MEAN CORPUSCULAR HGB CONC 33.9 g/dl (31.0-37.0); MONO # 0.6 (0.1-0.6); MONO % 8.4 % (1.0-6.0); PLATELET COUNT 193 10^3/uL (120.0-450.0); RED CELL DISTRIBUTION WIDTH 17.2 % (11.5-14.5); WHITE BLOOD COUNT 6.9 10^3/ul (4.5-11.0)
[2017-03-04 07:54] LABS: BILIRUBIN,TOTAL 0.5 mg/dL (0.2-1.3); CALCIUM 8.4 mg/dL (8.4-10.5); POTASSIUM 4.4 mmol/L (3.6-5.0); TOTAL PROTEIN 5.9 g/dL (5.8-8.3)
--- NOTE | 2017-03-04 09:19 | CP.PCM.PN ---
<Jerrod Brice - Last Filed: 03/04/17 11:19> Subjective - Date & Time of Evaluation Date of Evaluation: 03/04/17 Time of Evaluation: 09:17 - Subjective Subjective: Medicine progress note - Jerrod Babs PGY1 Patient seen and examined at bedside this morning. Patient is tolerating physical therapy well and appears to be regaining her strength. We will continue with physical therapy as tolerated. Otherwise, no acute events reported overnight and no new complaints. Denies chest pain, palpitations, SOB. Objective - Vital Signs/Intake and Output Vital Signs (last 24 hours): Temp Pulse Resp BP Pulse Ox 98.6 F 75 18 133/65 97 03/04/17 06:00 03/04/17 06:00 03/04/17 06:00 03/04/17 06:00 03/04/17 06:00 - Medications Medications: Current Medications Amlodipine Besylate (Norvasc) 5 mg PO DAILY MARCE PRN Reason: Protocol Last Admin: 03/03/17 10:08 Dose: 5 mg Aspirin (Ecotrin) 81 mg PO 0800 MARCE PRN Reason: Protocol Last Admin: 03/04/17 08:29 Dose: 81 mg Benzonatate (Tessalon Perles) 100 mg PO TID MARCE PRN Reason: Protocol Last Admin: 03/03/17 17:50 Dose: 100 mg Calcitonin [place] (Miacalcin) 200 iu NS DAILY MARCE PRN Reason: Protocol Last Admin: 03/03/17 10:07 Dose: 1 spr Dexamethasone (Decadron) 16 mg PO FRI MARCE Heparin Sodium (Porcine) (Heparin) 5,000 units SC Q8 MARCE PRN Reason: Protocol Last Admin: 03/04/17 05:19 Dose: 5,000 units Levothyroxine Sodium (Synthroid) 25 mcg PO 0600 MARCE PRN Reason: Protocol Last Admin: 03/04/17 05:20 Dose: 25 mcg Megestrol Acetate (Megace) 400 mg PO DAILY MARCE PRN Reason: Protocol Last Admin: 03/03/17 10:07 Dose: 400 mg Metoprolol Tartrate (Lopressor) 50 mg PO DAILY MARCE PRN Reason: Protocol Last Admin: 03/03/17 10:07 Dose: 50 mg Morphine Sulfate (Morphine) 1 mg IVP Q4H PRN; Protocol PRN Reason: Pain, severe (8-10) Last Admin: 03/02/17 19:59 Dose: 1 mg Non-Formulary Medication (Lenalidomide [Revlimid]) 25 mg PO DAILY [facility] Last Admin: 03/03/17 10:06 Dose: Not Given Non-Formulary Medication (Ixazomib Citrate [Ninlaro]) 3 mg PO QWK [facility] Pantoprazole Sodium (Protonix Ec Tab) 40 mg PO 0630 MARCE PRN Reason: Protocol Last Admin: 03/04/17 05:29 Dose: 40 mg Polyethylene Glycol (Miralax) 17 gm PO DAILY MARCE PRN Reason: Protocol Last Admin: 03/03/17 10:07 Dose: 17 gm Prednisone (Prednisone Tab) 2.5 mg PO DAILY MARCE PRN Reason: Protocol Last Admin: 03/03/17 10:11 Dose: 2.5 mg - Labs Labs: 03/04/17 07:00 03/04/17 07:00 - Constitutional Appears: Non-toxic, No Acute Distress - Head Exam Head Exam: ATRAUMATIC, NORMAL INSPECTION, NORMOCEPHALIC - Eye Exam Eye Exam: EOMI, PERRL - ENT Exam ENT Exam: Mucous Membranes Moist - Neck Exam Neck Exam: Normal Inspection - Respiratory Exam Respiratory Exam: Clear to Ausculation Bilateral. absent: Rales, Rhonchi, Wheezes - Cardiovascular Exam Cardiovascular Exam: RRR, +S1, +S2. absent: Gallop, JVD, Rubs - GI/Abdominal Exam GI & Abdominal Exam: Soft, Normal Bowel Sounds. absent: Distended, Firm, Guarding, Rigid, Tenderness, Rebound - Extremities Exam Extremities Exam: Normal Inspection - Neurological Exam Neurological Exam: Alert, Awake, Oriented x3 - Psychiatric Exam Psychiatric exam: Normal Affect, Normal Mood - Skin Skin Exam: Dry, Intact, Normal Color, Warm Assessment and Plan - Assessment and Plan (Free Text) Plan: 1. Low back pain * Hip/Pelvis x-ray from 02/24 was reviewed; no acute fractures reported; see full report * CXR revealed no active disease * CT Pelvis negative for fractures; see full report * Lumbar CT revealed subacute compression fractures T12, L1, L3, L5 vertebral bodies; Mild disc herniation at L3-L4, L4-L5, L5-S1; see full report * MRI Lumbar spine reviewed; revealed multiple vertebral compression fractures at T10, L1, L2, L3, and L5 vertebra; bilateral facet joint arthropathy at T12-L1 , L1-L2, L2-L3; see full report for further findings * Patient encouraged to participate in physical therapy with aid of TLSO brace * Patient declined IR intervention, namely kyphoplasty * Patient was also evaluated by neurosurgery and is currently not a case for surgical intervention; Recommended use of TLSO brace and may consider vertebroplasty in the future should conservative measures fail. * Patient currently in TCU undergoing daily physical therapy with aid of TLSO brace as recommended by neurosurgery. Will continue to monitor her progress. * Orthopedic surgery consulted - Dr. Paulino * IR consulted - Dr. Hearn * Heme/Onc consulted - Dr. Huffman * Neurosx consulted - Dr. Suarez 2. Multiple Myeloma * Prednisone 2.5mg po qd * Ninlaro 3mg po qwk * Decadron 4mg 16mg po qfri * Megace 400mg po qd * heme/onc consulted - Dr. Huffman 3. Chronic Kidney Disease stage 3 * Currently within baseline, will continue to monitor renal function 4. Hypothyroidism * Continue home synthroid 5. Hypertension * Continue Norvasc 5mg po qd * Continue Metoprolol 50mg po qd 6. GI/DVT Prophylaxis * Protonix/heparin 7. Constipation * Relistor 12mg once * Continue Miralax 8. Transaminitis -GI consulted - Dr. Murray -Abdominal US pending Disposition: Patient currently undergoing rehabilitation with physical therapy. We will continue to monitor her progress and make recommendations as needed. Patient seen, reviewed, and case discussed with attending, Dr. Ding <Adrian Ding - Last Filed: 04/04/17 08:27> Objective - Vital Signs/Intake and Output Vital Signs (last 24 hours): Temp Pulse Resp BP Pulse Ox 98.0 F 60 16 135/60 99 03/09/17 06:00 03/09/17 06:00 03/09/17 06:00 03/09/17 10:34 03/09/17 06:00 - Labs Labs: 03/09/17 07:55 03/09/17 07:55 Attending/Attestation - Attestation I have personally seen and examined this patient.: Yes I have fully participated in the care of the patient.: Yes I have reviewed all pertinent clinical information, including history, physical exam and plan: Yes Notes (Text): 04/04/17 08:27 Medical record note made by the resident after discussion with my direction and input after the patient was personally seen and examined by me. I have reviewed the chart and agree that the record reflects my personal performance of history, physical, data review and course for the patient that I have planned.
[2017-03-04] MEDS ORDERED: Oxycodone/Acetaminophen 5/325 mg Tab PO PRN (10:47)
[2017-03-04] MEDS: LENALIDOMIDE 25 MG PO SCH (10:52)
[2017-03-04] MEDS: Megestrol Acetate 40 mg/ml Cup PO SCH (10:53)
[2017-03-04] MEDS: Calcitonin 200 Int Units/Inh Nasal Spray (3.7 ml) NS SCH (10:55)
[2017-03-04] MEDS: POLYETHYLENE GLYCOL 3350 17 GM/Dose PACKET PO SCH (10:56)
--- NOTE | 2017-03-04 13:44 | CON ---
DATE: 03/04/2017 Seen and examined in TCU. REQUEST FOR CONSULT: For elevated liver enzymes. HISTORY OF PRESENT ILLNESS: This is a 76-year-old female with history of multiple myeloma, pituitary adenoma, status post surgery, on chemotherapy, comes to the Emergency Room with complaints of right hip and low back pain. The patient was evaluated by orthopedic and neurosurgery. No need for surgic al management. The patient refused kyphoplasty and referred physical therapy. The patient was seen by our service a few months ago for diarrhea. She is not having any problems with her bowels. She w as noted on routine labs to have elevated liver enzymes. She denies any nausea, vomiting. She does complain of abdominal pain, mostly in the lower abdomen from her heparin injections, moving her bowel s with no difficulties. No diarrhea or constipation. Does not notice any blood. PAST MEDICAL HISTORY: Multiple myeloma, on chemo and radiation. She is on Revlimid 25 mg that she t akes daily and she is also on Ninlaro 3 mg and takes that once a week. She also has history of hypot hyroidism secondary to thyroidectomy and hypertension. History of uterine fibroids. PAST SURGICAL HISTORY: She had a hysterectomy with bilateral oophorectomy, removal of breast mass, p ituitary adenoma status post transsphenoidal resection x 3 and a thyroidectomy. Her last colonoscopy she reports pain is about 4-5 years ago at [facility]3], history of colon polyps. FAMILY HISTORY: Mother with breast cancer. Father [place]. SOCIAL HISTORY: Denies smoking, ETOH, or substance abuse. ALLERGIES: SHE IS ALLERGIC TO SULFA. MEDICATIONS: Reviewed as per MAR. REVIEW OF SYSTEMS: Systems reviewed with positive findings, see HPI. VITAL SIGNS: Temperature is 97.4, blood pressure is 128/74, pulse 88, respirations 16, 97 on room ai r. LABORATORY DATA: Sodium is 134, K is 4.4, BUN 30, creatinine is 1.3. Total bilirubin is 0.5, AST 49 , ALT 93, alkaline phosphatase 71. This is slightly improved compared to yesterday's, her AST 72, AL T 117. PHYSICAL EXAMINATION: HEENT: Sclerae are anicteric. NECK: Supple. CARDIAC: S1, S2. LUNGS: With decreased breath sounds, but good air entry. No rales or wheeze. ABDOMEN: With bowel sounds, soft. It is not distended. She does have tenderness to lower abdomen f rom her heparin injections. No rebound or guarding. EXTREMITIES: Positive pedal pulses. Did not notice any edema. NEUROLOGIC: Awake and alert and oriented. ASSESSMENT: This is a 76-year-old female with a history of multiple myeloma, on chemotherapy and rad iation. She has history of hypothyroidism, hypertension, comes with back pain. The patient, on revi ew of labs, is noted to have elevated liver enzymes, rule out medication-induced hepatitis, rule out any gallbladder pathology. Another differential is rule out any hepatic congestion. PLAN: We will request to check hepatitis panel. She is already waiting to go for an abdominal ultra sound, avoid any hepatotoxic medications, but the patient states she is not on any new medicines that she knows of, only what she has been given here. We will trend her liver enzymes. Thank you for this consult and for allowing us to participate in your patient's care. We will make f lala recommendations based upon patient's clinical course. The patient was seen and case discussed with Dr. Murray. Kathya ESCOBEDO cc: [id number] TT: 03/04/2017 13:43:51 Confirmation # [id number] Dictation # [id number]
[2017-03-05] MEDS: Pantoprazole 40 mg EC Tab PO SCH (05:54)
[2017-03-05] MEDS: Levothyroxine 25 MCG TAB PO SCH (05:56)
[2017-03-05 07:39] LABS: ALB/GLOB RATIO 0.9 (1.1-1.8); BILIRUBIN,DIRECT 0.4 mg/dL (0.0-0.4); BILIRUBIN,TOTAL 0.7 mg/dL (0.2-1.3); TOTAL PROTEIN 6.2 g/dL (5.8-8.3)
--- NOTE | 2017-03-05 09:33 | US ---
HISTORY: transaminitis COMPARISON: None. TECHNIQUE: Sonographic evaluation of the abdomen. FINDINGS: LIVER: Measures 11.7 x 10.7 by 13.3 cm. Normal echogenicity of the liver parenchyma. No mass. No intrahepatic bile duct dilatation. GALLBLADDER: Unremarkable. No gallstones. COMMON BILE DUCT: Measures 3 mm. No stones. No dilatation. PANCREAS: Not clearly visualized due to obscuring bowel gas RIGHT KIDNEY: Measures 8.8 x 4.0 x 4.1cm. 1.5 x 1.9 x 1.4 cm right upper renal pole parenchymal cyst. No hydronephrosis. No gross calculi LEFT KIDNEY: Limited visualization due to obscuring bowel gas. Patient also would not allow decubital positioning for optimal evaluation -as per technologist's note SPLEEN: Not seen due to obscuring bowel gas AORTA: No aneurysmal dilatation. IVC: Not visualized due to obscuring bowel gas OTHER FINDINGS: None. IMPRESSION: Prominent bowel gas limiting optimal evaluation. Especially the pancreas and spleen and left kidney. Unremarkable liver. Right upper renal pole benign-appearing simple cyst measuring up to 1.9 cm No gallbladder pathology seen
[2017-03-05 10:39] LABS: HEMATOCRIT 32.9 % (36.0-48.0); MEAN CELL VOLUME 95.9 fL (80.0-105.0); MEAN CORPUSCULAR HEMOGLOBIN 32.1 pg (25.0-35.0); MEAN CORPUSCULAR HGB CONC 33.4 g/dl (31.0-37.0); MEAN PLATELET VOLUME 9.1 fl (7.0-11.0); PLATELET COUNT 216 10^3/uL (120.0-450.0); RED CELL DISTRIBUTION WIDTH 17.7 % (11.5-14.5); WHITE BLOOD COUNT 7.9 10^3/ul (4.5-11.0)
[2017-03-05 10:42] LABS: ADD MANUAL DIFF? YES
[2017-03-05 10:48] LABS: ALB/GLOB RATIO 1.1 (1.1-1.8); ALKALINE PHOSPHATASE 86 U/L (38-133); ALT/SGPT 110 U/L (7-56); AST/SGOT 76 U/L (15-39); BILIRUBIN,TOTAL 0.8 mg/dL (0.2-1.3); BLOOD UREA NITROGEN 30 mg/dL (7-21); CALCIUM 9.3 mg/dL (8.4-10.5); CARBON DIOXIDE 23 mmol/L (21-33); CHLORIDE 102 mmol/L (98-107); GFR AFRICAN-AMERICAN 35; GLUCOSE,RANDOM 77 mg/dL (70-110); POTASSIUM 4.5 mmol/L (3.6-5.0); SODIUM 136 mmol/L (132-148); TOTAL PROTEIN 7.2 g/dL (5.8-8.3)
[2017-03-05] MEDS: Calcitonin 200 Int Units/Inh Nasal Spray (3.7 ml) NS SCH (10:48)
[2017-03-05] MEDS: Megestrol Acetate 40 mg/ml Cup PO SCH (10:48)
[2017-03-05 10:50] LABS: IRON 105 ug/dL (45-180)
[2017-03-05] MEDS: POLYETHYLENE GLYCOL 3350 17 GM/Dose PACKET PO SCH (10:50)
[2017-03-05] MEDS: LENALIDOMIDE 25 MG PO SCH (10:53)
[2017-03-05 11:05] LABS: NEUTROPHIL 66 % (50.0-70.0); PLATELET ESTIMATE NORMAL (NORMAL)
[2017-03-05 11:06] LABS: ANISOCYTOSIS SLIGHT; HYPOCHROMIA SLIGHT
--- NOTE | 2017-03-05 11:41 | CP.PCM.PN ---
<Jerrod Brice - Last Filed: 03/05/17 11:37> Subjective - Date & Time of Evaluation Date of Evaluation: 03/05/17 Time of Evaluation: 11:37 - Subjective Subjective: Medicine progress note - Jerrod Brice PGY1 Patient seen and examined at bedside this morning. No acute overnight events or new complaints. Patient doing well with physical therapy and has not needed excessive amounts of opiates. Pain medication reduced. Denies chest pain, palpitations, SOB. Objective - Vital Signs/Intake and Output Vital Signs (last 24 hours): Temp Pulse Resp BP Pulse Ox 98.1 F 86 15 91/64 L 98 03/04/17 16:00 03/05/17 10:54 03/04/17 16:00 03/05/17 10:54 03/04/17 16:00 - Medications Medications: Current Medications Amlodipine Besylate (Norvasc) 5 mg PO DAILY MARCE PRN Reason: Protocol Last Admin: 03/05/17 10:53 Dose: Not Given Aspirin (Ecotrin) 81 mg PO 0800 MARCE PRN Reason: Protocol Last Admin: 03/05/17 08:33 Dose: 81 mg Benzonatate (Tessalon Perles) 100 mg PO TID MARCE PRN Reason: Protocol Last Admin: 03/05/17 10:51 Dose: 100 mg Calcitonin [place] (Miacalcin) 200 iu NS DAILY MARCE PRN Reason: Protocol Last Admin: 03/05/17 10:48 Dose: 1 spr Dexamethasone (Decadron) 16 mg PO FRI MARCE Heparin Sodium (Porcine) (Heparin) 5,000 units SC Q8 MARCE PRN Reason: Protocol Last Admin: 03/05/17 05:56 Dose: 5,000 units Levothyroxine Sodium (Synthroid) 25 mcg PO 0600 MARCE PRN Reason: Protocol Last Admin: 03/05/17 05:56 Dose: 25 mcg Megestrol Acetate (Megace) 400 mg PO DAILY MARCE PRN Reason: Protocol Last Admin: 03/05/17 10:48 Dose: 400 mg Metoprolol Tartrate (Lopressor) 50 mg PO DAILY MARCE PRN Reason: Protocol Last Admin: 03/05/17 10:54 Dose: Not Given Non-Formulary Medication (Lenalidomide [Revlimid]) 25 mg PO DAILY [facility] Last Admin: 03/05/17 10:53 Dose: Not Given Non-Formulary Medication (Ixazomib Citrate [Ninlaro]) 3 mg PO QWK [facility] Pantoprazole Sodium (Protonix Ec Tab) 40 mg PO 0630 MARCE PRN Reason: Protocol Last Admin: 03/05/17 05:54 Dose: 40 mg Polyethylene Glycol (Miralax) 17 gm PO DAILY MARCE PRN Reason: Protocol Last Admin: 03/05/17 10:50 Dose: Not Given Prednisone (Prednisone Tab) 2.5 mg PO DAILY MARCE PRN Reason: Protocol Last Admin: 03/05/17 10:51 Dose: 2.5 mg Tramadol HCl (Ultram) 50 mg PO Q4H PRN PRN Reason: Pain, moderate (4-7) - Labs Labs: 03/05/17 10:27 03/05/17 10:27 - Constitutional Appears: Non-toxic, No Acute Distress - Head Exam Head Exam: ATRAUMATIC, NORMAL INSPECTION, NORMOCEPHALIC - Eye Exam Eye Exam: EOMI, PERRL - ENT Exam ENT Exam: Mucous Membranes Moist - Neck Exam Neck Exam: Normal Inspection - Respiratory Exam Respiratory Exam: Clear to Ausculation Bilateral. absent: Rales, Rhonchi, Wheezes - Cardiovascular Exam Cardiovascular Exam: RRR, +S1, +S2. absent: Gallop, Rubs - GI/Abdominal Exam GI & Abdominal Exam: Soft, Normal Bowel Sounds. absent: Distended, Firm, Guarding, Rigid, Tenderness, Rebound - Neurological Exam Neurological Exam: Alert, Awake, Oriented x3 - Psychiatric Exam Psychiatric exam: Normal Affect, Normal Mood - Skin Skin Exam: Dry, Intact, Normal Color, Warm Assessment and Plan - Assessment and Plan (Free Text) Plan: 1. Low back pain * Hip/Pelvis x-ray from 02/24 was reviewed; no acute fractures reported; see full report * CXR revealed no active disease * CT Pelvis negative for fractures; see full report * Lumbar CT revealed subacute compression fractures T12, L1, L3, L5 vertebral bodies; Mild disc herniation at L3-L4, L4-L5, L5-S1; see full report * MRI Lumbar spine reviewed; revealed multiple vertebral compression fractures at T10, L1, L2, L3, and L5 vertebra; bilateral facet joint arthropathy at T12-L1 , L1-L2, L2-L3; see full report for further findings * Patient encouraged to participate in physical therapy with aid of TLSO brace * Patient declined IR intervention, namely kyphoplasty * Patient was also evaluated by neurosurgery and is currently not a case for surgical intervention; Recommended use of TLSO brace and may consider vertebroplasty in the future should conservative measures fail. * Patient currently in TCU undergoing daily physical therapy with aid of TLSO brace as recommended by neurosurgery. Will continue to monitor her progress. * Tapering pain control medication as tolerated * Orthopedic surgery consulted - Dr. Paulino * IR consulted - Dr. Hearn * Heme/Onc consulted - Dr. Huffman * Neurosx consulted - Dr. Suarez 2. Multiple Myeloma * Prednisone 2.5mg po qd * Ninlaro 3mg po qwk * Decadron 4mg 16mg po qfri * Megace 400mg po qd * heme/onc consulted - Dr. Huffman 3. Chronic Kidney Disease stage 3 * Currently within baseline, will continue to monitor renal function 4. Hypothyroidism * Continue home synthroid 5. Hypertension * Continue Norvasc 5mg po qd * Continue Metoprolol 50mg po qd 6. GI/DVT Prophylaxis * Protonix/heparin 7. Constipation * Relistor 12mg once * Continue Miralax 8. Transaminitis * GI consulted - Dr. Murray * Abdominal US reviewed; no acute findings; see full report * Hepatitis panel negative * Autoimmune workup pending Disposition: Patient currently undergoing rehabilitation with physical therapy. We will continue to monitor her progress and make recommendations as needed. Patient seen, reviewed, and case discussed with attending, Dr. Ding <Adrian Ding - Last Filed: 04/04/17 08:27> Objective - Vital Signs/Intake and Output Vital Signs (last 24 hours): Temp Pulse Resp BP Pulse Ox 98.0 F 60 16 135/60 99 03/09/17 06:00 03/09/17 06:00 03/09/17 06:00 03/09/17 10:34 03/09/17 06:00 - Labs Labs: 03/09/17 07:55 03/09/17 07:55 Attending/Attestation - Attestation I have personally seen and examined this patient.: Yes I have fully participated in the care of the patient.: Yes I have reviewed all pertinent clinical information, including history, physical exam and plan: Yes Notes (Text): 06/02/17 08:27 Medical record note made by the resident after discussion with my direction and input after the patient was personally seen and examined by me. I have reviewed the chart and agree that the record reflects my personal performance of history, physical, data review and course for the patient that I have planned.
[2017-03-06] MEDS: Levothyroxine 25 MCG TAB PO SCH (05:43)
[2017-03-06] MEDS: Pantoprazole 40 mg EC Tab PO SCH (05:43)
[2017-03-06 06:43] LABS: ADD MANUAL DIFF? NO
[2017-03-06 07:13] LABS: ALB/GLOB RATIO 0.9 (1.1-1.8); BILIRUBIN,DIRECT 0.3 mg/dL (0.0-0.4); BILIRUBIN,TOTAL 0.5 mg/dL (0.2-1.3); CALCIUM 8.4 mg/dL (8.4-10.5); POTASSIUM 4.8 mmol/L (3.6-5.0); TOTAL PROTEIN 5.8 g/dL (5.8-8.3)
[2017-03-06 07:36] LABS: BASO # 0.03 K/mm3 (0.0-2.0); BASO % 0.4 % (0.0-3.0); EOS % 0.4 % (1.5-5.0); GRAN # 4.63 (1.4-6.5); GRAN % 65.9 % (50.0-68.0); HEMATOCRIT 26.5 % (36.0-48.0); LYMPH # 1.7 (1.2-3.4); LYMPH % 24.2 % (22.0-35.0); MEAN CELL VOLUME 95.7 fL (80.0-105.0); MEAN CORPUSCULAR HEMOGLOBIN 32.1 pg (25.0-35.0); MEAN CORPUSCULAR HGB CONC 33.6 g/dl (31.0-37.0); MEAN PLATELET VOLUME 9.5 fl (7.0-11.0); MONO # 0.6 (0.1-0.6); MONO % 9.1 % (1.0-6.0); PLATELET COUNT 210 10^3/uL (120.0-450.0); RED CELL DISTRIBUTION WIDTH 17.9 % (11.5-14.5)
[2017-03-06] MEDS: Megestrol Acetate 40 mg/ml Cup PO SCH (09:47)
[2017-03-06] MEDS: Calcitonin 200 Int Units/Inh Nasal Spray (3.7 ml) NS SCH (09:48)
[2017-03-06] MEDS: POLYETHYLENE GLYCOL 3350 17 GM/Dose PACKET PO SCH ×2 (09:48→10:21)
[2017-03-06] MEDS: LENALIDOMIDE 25 MG PO SCH (10:21)
--- NOTE | 2017-03-06 15:58 | PN ---
DATE: 03/06/2017 Seen and examined at the bedside this afternoon. The patient denies any nausea, vomiting, or abdomin al pain. She is moving her bowels. No diarrhea. Does not notice any blood per rectum. VITAL SIGNS: Temperature is 97.8, blood pressure is 141/78, pulse 83, respirations 16, 97 on room ai r. LABORATORY DATA: WBC is 7.0, H and H is 8.9 and 26.5, platelets are 210. Sodium 135, K of 4.8, BUN 34, creatinine is 1.5. Her total bilirubin is 0.5, direct bilirubin is 0.3, AST 45, ALT 93, alk phos is 70. Her LFTs do show improvement. Hepatitis panel is negative. Her autoimmune markers are pend ing. Abdominal ultrasound is unremarkable liver. There is a right simple cyst, no gallbladder patho logy. CBD measures 3 mm. PHYSICAL EXAMINATION: HEENT: Sclera is anicteric. NECK: Supple. CARDIAC: S1, S2. LUNGS: Sounds with decreased breath sounds but good air entry, no rales or wheeze. ABDOMEN: With bowel sounds, soft, nondistended, nontender. No rebound or guarding. ASSESSMENT: A 76-year-old female with history of multiple myeloma on chemotherapy and radiation. Sh e is noted to have elevated liver enzymes. It seems to be improving. Abdominal ultrasound is negati ve for any gallstones, may be medication induced. Rule out autoimmune hepatitis. The autoimmune mar kers are pending. PLAN: Continue to trend her LFTs. Avoid hepatotoxic medications. Continue current treatment. The patient was seen and case discussed with Dr. Murray. Kathya Jacqueline GREGG cc: [id number] TT: 03/06/2017 15:58:17 Confirmation # [id number] Dictation # [id number]
--- NOTE | 2017-03-06 19:18 | CP.PCM.PN ---
<Jerrod Brice - Last Filed: 03/06/17 19:12> Subjective - Date & Time of Evaluation Date of Evaluation: 03/06/17 Time of Evaluation: 19:12 - Subjective Subjective: Medicine progress note - Jerrod Brice PGY1 Patient seen and examined at bedside this morning. No acute overnight events or new complaints. She reports that she is doing well with physical therapy and feels much stronger than when she first presented to the hospital. Encouraged her to continue with rehabilitation as tolerated. Denies chest pain, palpitations, SOB. Objective - Vital Signs/Intake and Output Vital Signs (last 24 hours): Temp Pulse Resp BP Pulse Ox 97.7 F 75 18 131/66 99 03/06/17 16:00 03/06/17 16:00 03/06/17 16:00 03/06/17 16:00 03/06/17 16:00 - Medications Medications: Current Medications Amlodipine Besylate (Norvasc) 5 mg PO DAILY [facility] PRN Reason: Protocol Last Admin: 03/06/17 09:48 Dose: 5 mg Aspirin (Ecotrin) 81 mg PO 0800 [facility] PRN Reason: Protocol Last Admin: 03/06/17 08:59 Dose: 81 mg Benzonatate (Tessalon Perles) 100 mg PO TID [facility] PRN Reason: Protocol Last Admin: 03/06/17 17:33 Dose: 100 mg Calcitonin [place] (Miacalcin) 200 iu NS DAILY [facility] PRN Reason: Protocol Last Admin: 03/06/17 09:48 Dose: 1 spr Dexamethasone (Decadron) 16 mg PO FRI [facility] Heparin Sodium (Porcine) (Heparin) 5,000 units SC Q8 [facility] PRN Reason: Protocol Last Admin: 03/06/17 14:32 Dose: 5,000 units Levothyroxine Sodium (Synthroid) 25 mcg PO 0600 [facility] PRN Reason: Protocol Last Admin: 03/06/17 05:43 Dose: 25 mcg Megestrol Acetate (Megace) 400 mg PO DAILY [facility] PRN Reason: Protocol Last Admin: 03/06/17 09:47 Dose: 400 mg Metoprolol Tartrate (Lopressor) 50 mg PO DAILY [facility] PRN Reason: Protocol Last Admin: 03/06/17 09:47 Dose: 50 mg Non-Formulary Medication (Lenalidomide [Revlimid]) 25 mg PO DAILY [facility] Last Admin: 03/06/17 10:21 Dose: Not Given Non-Formulary Medication (Ixazomib Citrate [Ninlaro]) 3 mg PO QWK [facility] Pantoprazole Sodium (Protonix Ec Tab) 40 mg PO 0630 [facility] PRN Reason: Protocol Last Admin: 03/06/17 05:43 Dose: 40 mg Polyethylene Glycol (Miralax) 17 gm PO DAILY [facility] PRN Reason: Protocol Last Admin: 03/06/17 10:21 Dose: Not Given Prednisone (Prednisone Tab) 2.5 mg PO DAILY [facility] PRN Reason: Protocol Last Admin: 03/06/17 09:48 Dose: 2.5 mg Tramadol HCl (Ultram) 50 mg PO TID PRN PRN Reason: Pain, moderate (4-7) - Labs Labs: 03/06/17 06:00 03/06/17 06:00 - Constitutional Appears: Well, Non-toxic, No Acute Distress - Head Exam Head Exam: ATRAUMATIC, NORMAL INSPECTION, NORMOCEPHALIC - Eye Exam Eye Exam: EOMI, PERRL - ENT Exam ENT Exam: Mucous Membranes Moist - Neck Exam Neck Exam: Normal Inspection - Respiratory Exam Respiratory Exam: Clear to Ausculation Bilateral. absent: Rales, Rhonchi, Wheezes - Cardiovascular Exam Cardiovascular Exam: RRR, +S1, +S2. absent: Gallop, Rubs - GI/Abdominal Exam GI & Abdominal Exam: Soft. absent: Distended, Firm, Guarding, Rigid, Tenderness , Rebound - Neurological Exam Neurological Exam: Alert, Awake, Oriented x3 - Psychiatric Exam Psychiatric exam: Normal Affect, Normal Mood - Skin Skin Exam: Dry, Intact, Normal Color, Warm Assessment and Plan - Assessment and Plan (Free Text) Plan: 1. Low back pain * Hip/Pelvis x-ray from 02/24 was reviewed; no acute fractures reported; see full report * CXR revealed no active disease * CT Pelvis negative for fractures; see full report * Lumbar CT revealed subacute compression fractures T12, L1, L3, L5 vertebral bodies; Mild disc herniation at L3-L4, L4-L5, L5-S1; see full report * MRI Lumbar spine reviewed; revealed multiple vertebral compression fractures at T10, L1, L2, L3, and L5 vertebra; bilateral facet joint arthropathy at T12-L1 , L1-L2, L2-L3; see full report for further findings * Patient declined IR intervention, namely kyphoplasty * Patient was also evaluated by neurosurgery and is currently not a case for surgical intervention; Recommended use of TLSO brace and may consider vertebroplasty in the future should conservative measures fail. * Patient currently in TCU undergoing daily physical therapy with aid of TLSO brace as recommended by neurosurgery. Will continue to monitor her progress. * Her pain medication has been tapered significantly and she is doing well with minimal pain medication * Orthopedic surgery consulted - Dr. Paulino * IR consulted - Dr. Hearn * Heme/Onc consulted - Dr. Huffman * Neurosx consulted - Dr. Suarez 2. Multiple Myeloma * Prednisone 2.5mg po qd * Ninlaro 3mg po qwk * Decadron 4mg 16mg po qfri * Megace 400mg po qd * heme/onc consulted - Dr. Huffman 3. Chronic Kidney Disease stage 3 * Currently within baseline, will continue to monitor renal function 4. Hypothyroidism * Continue home synthroid 5. Hypertension * Continue Norvasc 5mg po qd * Continue Metoprolol 50mg po qd 6. GI/DVT Prophylaxis * Protonix/heparin 7. Constipation * Relistor 12mg once * Continue Miralax 8. Transaminitis * GI consulted - Dr. Murray * Abdominal US reviewed; no acute findings; see full report * Hepatitis panel negative * Autoimmune workup has thus far been negative; Her transaminitis is likely drug -induced from her multiple myeloma medications; we will continue to monitor her LFT's closely Disposition: Patient is doing well with physical therapy and we will continue to monitor her progress. She was instructed to make sure to follow up once she is discharged for further monitoring. Patient seen, reviewed, and case discussed with attending, Dr. Young <Irwin Young - Last Filed: 03/07/17 09:02> Objective - Vital Signs/Intake and Output Vital Signs (last 24 hours): Temp Pulse Resp BP Pulse Ox 97.7 F 75 18 131/66 99 03/06/17 16:00 03/06/17 16:00 03/06/17 16:00 03/06/17 16:00 03/06/17 16:00 - Medications Medications: Current Medications Amlodipine Besylate (Norvasc) 5 mg PO DAILY [facility] PRN Reason: Protocol Last Admin: 03/06/17 09:48 Dose: 5 mg Aspirin (Ecotrin) 81 mg PO 0800 [facility] PRN Reason: Protocol Last Admin: 03/07/17 08:14 Dose: 81 mg Benzonatate (Tessalon Perles) 100 mg PO TID [facility] PRN Reason: Protocol Last Admin: 03/06/17 17:33 Dose: 100 mg Calcitonin [place] (Miacalcin) 200 iu NS DAILY [facility] PRN Reason: Protocol Last Admin: 03/06/17 09:48 Dose: 1 spr Dexamethasone (Decadron) 16 mg PO FRI [facility] Heparin Sodium (Porcine) (Heparin) 5,000 units SC Q8 [facility] PRN Reason: Protocol Last Admin: 03/07/17 06:32 Dose: 5,000 units Levothyroxine Sodium (Synthroid) 25 mcg PO 0600 [facility] PRN Reason: Protocol Last Admin: 03/07/17 06:33 Dose: 25 mcg Megestrol Acetate (Megace) 400 mg PO DAILY [facility] PRN Reason: Protocol Last Admin: 03/06/17 09:47 Dose: 400 mg Metoprolol Tartrate (Lopressor) 50 mg PO DAILY [facility] PRN Reason: Protocol Last Admin: 03/06/17 09:47 Dose: 50 mg Non-Formulary Medication (Lenalidomide [Revlimid]) 25 mg PO DAILY [facility] Last Admin: 03/06/17 10:21 Dose: Not Given Non-Formulary Medication (Ixazomib Citrate [Ninlaro]) 3 mg PO QWK [facility] Pantoprazole Sodium (Protonix Ec Tab) 40 mg PO 0630 [facility] PRN Reason: Protocol Last Admin: 03/07/17 06:33 Dose: 40 mg Polyethylene Glycol (Miralax) 17 gm PO DAILY [facility] PRN Reason: Protocol Last Admin: 03/06/17 10:21 Dose: Not Given Prednisone (Prednisone Tab) 2.5 mg PO DAILY [facility] PRN Reason: Protocol Last Admin: 03/06/17 09:48 Dose: 2.5 mg Tramadol HCl (Ultram) 50 mg PO TID PRN PRN Reason: Pain, moderate (4-7) - Labs Labs: 03/06/17 06:00 03/06/17 06:00 Attending/Attestation - Attestation I have personally seen and examined this patient.: Yes I have fully participated in the care of the patient.: Yes I have reviewed all pertinent clinical information, including history, physical exam and plan: Yes Notes (Text): 03/07/17 09:02 Medical record note made by the resident after discussion with my direction and input after the patient was personally seen and examined by me. I have reviewed the chart and agree that the record accurately reflects by personal performance of the history, physical exam, data review, and medical decision-making, in the course for the patient. I have also personally directed the plan of care.
[2017-03-07] MEDS: Levothyroxine 25 MCG TAB PO SCH (06:33)
[2017-03-07] MEDS: Pantoprazole 40 mg EC Tab PO SCH (06:33)
--- NOTE | 2017-03-07 07:25 | CP.PCM.PN ---
<BabsJerrod - Last Filed: 03/07/17 15:11> Subjective - Date & Time of Evaluation Date of Evaluation: 03/07/17 Time of Evaluation: 07:21 - Subjective Subjective: Medicine progress note - Jerrod Babs PGY 1 Patient seen and examined at bedside this morning. No acute overnight events or new complaints. She is doing well with physical therapy and we continue to monitor her need for pain medication. Her transaminitis is likely secondary to her multiple myeloma medication and thus we will defer to hematology/oncology for their recommendations. Denies chest pain, palpitations, SOB. Objective - Vital Signs/Intake and Output Vital Signs (last 24 hours): Temp Pulse Resp BP Pulse Ox 97.7 F 75 18 131/66 99 03/06/17 16:00 03/06/17 16:00 03/06/17 16:00 03/06/17 16:00 03/06/17 16:00 - Medications Medications: Current Medications Amlodipine Besylate (Norvasc) 5 mg PO DAILY [facility] PRN Reason: Protocol Last Admin: 03/06/17 09:48 Dose: 5 mg Aspirin (Ecotrin) 81 mg PO 0800 [facility] PRN Reason: Protocol Last Admin: 03/06/17 08:59 Dose: 81 mg Benzonatate (Tessalon Perles) 100 mg PO TID [facility] PRN Reason: Protocol Last Admin: 03/06/17 17:33 Dose: 100 mg Calcitonin [place] (Miacalcin) 200 iu NS DAILY [facility] PRN Reason: Protocol Last Admin: 03/06/17 09:48 Dose: 1 spr Dexamethasone (Decadron) 16 mg PO FRI [facility] Heparin Sodium (Porcine) (Heparin) 5,000 units SC Q8 [facility] PRN Reason: Protocol Last Admin: 03/07/17 06:32 Dose: 5,000 units Levothyroxine Sodium (Synthroid) 25 mcg PO 0600 [facility] PRN Reason: Protocol Last Admin: 03/07/17 06:33 Dose: 25 mcg Megestrol Acetate (Megace) 400 mg PO DAILY [facility] PRN Reason: Protocol Last Admin: 03/06/17 09:47 Dose: 400 mg Metoprolol Tartrate (Lopressor) 50 mg PO DAILY [facility] PRN Reason: Protocol Last Admin: 03/06/17 09:47 Dose: 50 mg Non-Formulary Medication (Lenalidomide [Revlimid]) 25 mg PO DAILY [facility] Last Admin: 03/06/17 10:21 Dose: Not Given Non-Formulary Medication (Ixazomib Citrate [Ninlaro]) 3 mg PO QWK [facility] Pantoprazole Sodium (Protonix Ec Tab) 40 mg PO 0630 [facility] PRN Reason: Protocol Last Admin: 03/07/17 06:33 Dose: 40 mg Polyethylene Glycol (Miralax) 17 gm PO DAILY [facility] PRN Reason: Protocol Last Admin: 03/06/17 10:21 Dose: Not Given Prednisone (Prednisone Tab) 2.5 mg PO DAILY [facility] PRN Reason: Protocol Last Admin: 03/06/17 09:48 Dose: 2.5 mg Tramadol HCl (Ultram) 50 mg PO TID PRN PRN Reason: Pain, moderate (4-7) - Labs Labs: 03/06/17 06:00 03/06/17 06:00 - Constitutional Appears: Non-toxic, No Acute Distress - Head Exam Head Exam: ATRAUMATIC, NORMAL INSPECTION, NORMOCEPHALIC - Eye Exam Eye Exam: EOMI, PERRL - ENT Exam ENT Exam: Mucous Membranes Moist - Neck Exam Neck Exam: Normal Inspection - Respiratory Exam Respiratory Exam: Clear to Ausculation Bilateral. absent: Rales, Rhonchi, Wheezes - Cardiovascular Exam Cardiovascular Exam: RRR, +S1, +S2. absent: Gallop, Rubs - GI/Abdominal Exam GI & Abdominal Exam: Soft. absent: Firm, Guarding, Rigid, Tenderness, Rebound - Neurological Exam Neurological Exam: Alert, Awake, Oriented x3 - Psychiatric Exam Psychiatric exam: Normal Affect, Normal Mood - Skin Skin Exam: Dry, Intact, Normal Color, Warm Assessment and Plan - Assessment and Plan (Free Text) Plan: 1. Low back pain * Hip/Pelvis x-ray from 02/24 was reviewed; no acute fractures reported; see full report * CXR revealed no active disease * CT Pelvis negative for fractures; see full report * Lumbar CT revealed subacute compression fractures T12, L1, L3, L5 vertebral bodies; Mild disc herniation at L3-L4, L4-L5, L5-S1; see full report * MRI Lumbar spine reviewed; revealed multiple vertebral compression fractures at T10, L1, L2, L3, and L5 vertebra; bilateral facet joint arthropathy at T12-L1 , L1-L2, L2-L3; see full report for further findings * Patient declined IR intervention, namely kyphoplasty * Patient was also evaluated by neurosurgery and is currently not a case for surgical intervention; Recommended use of TLSO brace and may consider vertebroplasty in the future should conservative measures fail. * Patient currently in TCU undergoing daily physical therapy with aid of TLSO brace as recommended by neurosurgery. Will continue to monitor her progress. * Her pain medication has been tapered significantly and she is doing well with minimal pain medication * Orthopedic surgery consulted - Dr. Paulino * IR consulted - Dr. Hearn * Heme/Onc consulted - Dr. Huffman * Neurosx consulted - Dr. Suarez 2. Multiple Myeloma * Prednisone 2.5mg po qd * Ninlaro 3mg po qwk * Decadron 4mg 16mg po qfri * Megace 400mg po qd * heme/onc consulted - Dr. Huffman 3. Chronic Kidney Disease stage 3 * Currently within baseline, will continue to monitor renal function 4. Hypothyroidism * Continue home synthroid 5. Hypertension * Continue Norvasc 5mg po qd * Continue Metoprolol 50mg po qd 6. GI/DVT Prophylaxis * Protonix/heparin 7. Constipation * Relistor 12mg once * Continue Miralax 8. Transaminitis * GI consulted - Dr. Murray * Abdominal US reviewed; no acute findings; see full report * Hepatitis panel negative * Autoimmune workup has thus far been negative * Her transaminitis is likely drug-induced from her multiple myeloma medications ; we will continue to monitor her LFT's closely Disposition: Patient is doing well with physical therapy and we will continue to monitor her progress. She was instructed to make sure to follow up once she is discharged for further monitoring. Patient seen, reviewed, and case discussed with attending, Dr. Young <Irwin Young - Last Filed: 03/14/17 09:14> Objective - Vital Signs/Intake and Output Vital Signs (last 24 hours): Temp Pulse Resp BP Pulse Ox 98.0 F 60 16 135/60 99 03/09/17 06:00 03/09/17 06:00 03/09/17 06:00 03/09/17 10:34 03/09/17 06:00 - Labs Labs: 03/09/17 07:55 03/09/17 07:55 Attending/Attestation - Attestation I have personally seen and examined this patient.: Yes I have fully participated in the care of the patient.: Yes I have reviewed all pertinent clinical information, including history, physical exam and plan: Yes Notes (Text): 03/14/17 09:14 Medical record note made by the resident after discussion with my direction and input after the patient was personally seen and examined by me. I have reviewed the chart and agree that the record accurately reflects by personal performance of the history, physical exam, data review, and medical decision-making, in the course for the patient. I have also personally directed the plan of care.
[2017-03-07 08:29] LABS: BILIRUBIN,DIRECT 0.4 mg/dL (0.0-0.4); BILIRUBIN,TOTAL 0.7 mg/dL (0.2-1.3); TOTAL PROTEIN 6.1 g/dL (5.8-8.3)
[2017-03-07] MEDS: LENALIDOMIDE 25 MG PO SCH (09:56)
[2017-03-07] MEDS: Megestrol Acetate 40 mg/ml Cup PO SCH (09:57)
[2017-03-07] MEDS: POLYETHYLENE GLYCOL 3350 17 GM/Dose PACKET PO SCH (09:58)
[2017-03-07] MEDS: Calcitonin 200 Int Units/Inh Nasal Spray (3.7 ml) NS SCH (09:58)
[2017-03-08] MEDS: Pantoprazole 40 mg EC Tab PO SCH (06:15)
[2017-03-08] MEDS: Levothyroxine 25 MCG TAB PO SCH (08:33)
[2017-03-08 08:45] LABS: ADD MANUAL DIFF? NO
[2017-03-08 08:59] LABS: BILIRUBIN,TOTAL 0.7 mg/dL (0.2-1.3); CALCIUM 9.3 mg/dL (8.4-10.5); POTASSIUM 4.7 mmol/L (3.6-5.0)
[2017-03-08 09:19] LABS: BASO # 0.03 K/mm3 (0.0-2.0); BASO % 0.3 % (0.0-3.0); GRAN # 9.59 (1.4-6.5); GRAN % 82.4 % (50.0-68.0); HEMATOCRIT 27.8 % (36.0-48.0); LYMPH # 1.4 (1.2-3.4); LYMPH % 12.3 % (22.0-35.0); MEAN CELL VOLUME 96.2 fL (80.0-105.0); MEAN CORPUSCULAR HEMOGLOBIN 31.5 pg (25.0-35.0); MEAN CORPUSCULAR HGB CONC 32.7 g/dl (31.0-37.0); MEAN PLATELET VOLUME 9.1 fl (7.0-11.0); MONO # 0.6 (0.1-0.6); PLATELET COUNT 254 10^3/uL (120.0-450.0); RED CELL DISTRIBUTION WIDTH 17.8 % (11.5-14.5); WHITE BLOOD COUNT 11.6 10^3/ul (4.5-11.0)
[2017-03-08] MEDS ORDERED: IXAZOMIB CITRATE 3 MG PO SCH (10:00)
[2017-03-08] MEDS ORDERED: Home Med 1 UNIT PO SCH (10:00)
--- NOTE | 2017-03-08 10:14 | PN ---
DATE: 03/08/2017 I saw her resting comfortably in bed. She ate her breakfast. She is pleasant. She is smiling. She has no acute distress. She is in good spirits. PHYSICAL EXAMINATION: VITAL SIGNS: She has a 98.7 temp, 65 pulse, 128/69 blood pressure, 16 respiratory rate, 98% O2 sat o n room air. GENERAL: I am seeing her today because Dr. Ding is off and I am covering his practice. She is c urrently on Decadron, Ecotrin, heparin, Ninlaro, Revlimid, Lopressor, Megace, Miacalcin, MiraLax, Nor vasc, prednisone, Protonix, Synthroid, Tessalon Perles, and Ultram. HEENT: Her head is atraumatic, normocephalic. HEART: Regular rate. LUNGS: Decreased breath sounds. ABDOMEN: Morbidly obese. EXTREMITIES: Trace edema. LABORATORY DATA: She has an 11.6 white count, 9.1 hemoglobin, 27.8 hematocrit with 254 platelets, 13 5 sodium, potassium 4.7, BUN 34, creatinine 1.4. GFR is 37, sugar is 107, calcium 9.3, total bili is 0.7, AST is 50, ALT is 94, alk phos is 81. The hepatitis screen is negative. She is being seen by gastroenterology, hematology. She is here for low back pain. She has multiple compression fractures. She has multiple myeloma, chronic kidney disease, hypothyroidism, hypertensio n, constipation. I understand the plan is to discharge her tomorrow. I will check her labs tomorrow . I encouraged her to eat well and go to physical therapy. Mario Brown DO cc: [id number] TT: 03/08/2017 10:13:57 Confirmation # [id number] Dictation # [id number] tn
[2017-03-08] MEDS: LENALIDOMIDE 25 MG PO SCH ×2 (10:21→12:32)
[2017-03-08] MEDS: POLYETHYLENE GLYCOL 3350 17 GM/Dose PACKET PO SCH (10:22)
[2017-03-08] MEDS: Megestrol Acetate 40 mg/ml Cup PO SCH (10:23)
[2017-03-08] MEDS: Calcitonin 200 Int Units/Inh Nasal Spray (3.7 ml) NS SCH (10:25)
[2017-03-08 18:32] VITALS: O2SAT 99
[2017-03-09] MEDS: Levothyroxine 25 MCG TAB PO SCH (05:28)
[2017-03-09] MEDS: Pantoprazole 40 mg EC Tab PO SCH (05:29)
[2017-03-09 07:13] VITALS: BP 135/60; PULSE 60; RESP 16; TEMP 98
[2017-03-09 08:24] LABS: ALB/GLOB RATIO 0.6 (1.1-1.8); ALKALINE PHOSPHATASE 82 U/L (38-133); ALT/SGPT 30 U/L (7-56); AST/SGOT 30 U/L (15-39); BLOOD UREA NITROGEN 22 mg/dL (7-21); CALCIUM 8.4 mg/dL (8.4-10.5); CARBON DIOXIDE 26 mmol/L (21-33); CHLORIDE 101 mmol/L (98-107); GFR AFRICAN-AMERICAN > 60; GLUCOSE,RANDOM 80 mg/dL (70-110); POTASSIUM 4.3 mmol/L (3.6-5.0); SODIUM 135 mmol/L (132-148); TOTAL PROTEIN 7.7 g/dL (5.8-8.3)
[2017-03-09 08:41] LABS: HEMATOCRIT 32.9 % (36.0-48.0); MEAN CELL VOLUME 99.1 fL (80.0-105.0); MEAN CORPUSCULAR HEMOGLOBIN 32.5 pg (25.0-35.0); MEAN CORPUSCULAR HGB CONC 32.8 g/dl (31.0-37.0); MEAN PLATELET VOLUME 10.6 fl (7.0-11.0); RED CELL DISTRIBUTION WIDTH 15.6 % (11.5-14.5); WHITE BLOOD COUNT 9.3 10^3/ul (4.5-11.0)
[2017-03-09] MEDS: LENALIDOMIDE 25 MG PO SCH (10:32)
[2017-03-09] MEDS: POLYETHYLENE GLYCOL 3350 17 GM/Dose PACKET PO SCH ×2 (10:35)
[2017-03-09] MEDS: Calcitonin 200 Int Units/Inh Nasal Spray (3.7 ml) NS SCH (10:35)
[2017-03-09] MEDS: Megestrol Acetate 40 mg/ml Cup PO SCH (10:35)
--- NOTE | 2017-03-09 13:47 | DS ---
For Dr. Ding who is off today. She is resting comfortably in bed. She is in good spirits. She has no complaints of chest pain or shortness breath, no abdominal pain. She is excited about going h ome today. MEDICATIONS: She will go home on dexamethasone 60 mg on Fridays, 81 mg of aspirin daily, NINLARO 3 m g q. week, Revlimid 25 mg daily, metoprolol 50 mg daily, Megace 400 mg daily, Miacalcin 200 Internati onal Units daily spray, MiraLax 17 g daily, Norvasc 5 mg daily, prednisone 2.5 mg daily, Protonix 40 mg daily, Synthroid 25 mcg daily, Tessalon Perles 100 mg 3 times a day and Ultram 50 mg 3 times a day as needed. PHYSICAL EXAMINATION: VITAL SIGNS: Today are 98 temp, 60 pulse, 135/60 blood pressure, 16 respiratory rate, 99% O2 sat on room air. HEENT: Head is atraumatic, normocephalic. HEART: Regular rate. LUNGS: Clear to auscultation. ABDOMEN: Soft, obese. EXTREMITIES: Trace edema. LABORATORY DATA: She has a 9.3 white count, 10.8 hemoglobin, 32.9 hematocrit with 211 platelets. 13 5 sodium, potassium 4.3, BUN 22, creatinine 0.9, GFR is greater than 60. That is the best it has bee n. Sugar is 80, calcium is 8.4, total bili is 1, AST is 30, ALT is 30, alkaline phosphatase 82, best it has been, also. This is a good day for her. All the hepatitis are negative. She will be discha rged today. She will follow up with Dr. Ding in the next 24-48 hours. She understands this. I discussed this with the nurse, went over all the medicines with the nurse. Mario Brown DO cc: [id number] TT: 03/09/2017 13:47:15 tiffanie
--- NOTE | 2017-03-11 15:35 | CON ---
DATE: 03/06/2017 LOCATION: Room 322, bed 2. REQUESTING PHYSICIAN: Adrian Ding MD CHIEF COMPLAINT: Low back pain. HISTORY OF PRESENT ILLNESS: The patient is a pleasant 76-year-old female with past medical history o f multiple myeloma, pituitary adenoma status post surgery, uterine fibroid status post hysterectomy a nd bilateral oophorectomy, hypothyroidism, hypertension, who presented initially to the [facility] complaining of severe right-sided hip pain and low back pain. The patien t stated that her right hip pain started 2 weeks prior to admission to [facility] and she was unable to bear weight on her right leg. She also complained of low back pain, which started a f ew days prior to her admission and stated that was a new onset severe mid and low back pain. She den ied any pain shooting down to bilateral lower extremities. Her pain level is 5/10. The patient was transferred to transitional care unit to continue her aggressive physical therapy. She is currently on tramadol 50 mg q. 4 hours, which she is not using as often and she is participating well in physic al therapy. Her visual analog scale on today's evaluation is 4/10. PAST MEDICAL HISTORY: Multiple myeloma on chemotherapy and radiation, uterine fibroid, hypothyroidis m, hypertension. PAST SURGICAL HISTORY: Status post thyroidectomy, hysterectomy with bilateral oophorectomy, breast m ass removal, pituitary adenoma status post transsphenoidal resection. MEDICATIONS: Reviewed in the chart. ALLERGIES: TO SULFA DRUGS. SOCIAL HISTORY: The patient denied any alcohol intake or drug abuse. FAMILY HISTORY: Breast cancer, hypertension, diabetes. REVIEW OF SYSTEMS: The patient denied any fever, chills, cough, nausea, vomiting, abdominal pain. S he denied any tingling or numbness to bilateral lower extremities. She reported back pain. She tigist ed any bowel or bladder dysfunction. PHYSICAL EXAMINATION: GENERAL: The patient was lying in bed comfortably, in no acute distress. HEAD: Normocephalic, atraumatic. EYES: PERRLA. Extraocular muscles intact. NECK: Supple, no jugular venous distention, no thyromegaly. HEART: S1, S2 normal. LUNGS: Clear to auscultation bilaterally. NEUROMUSCULAR: She is alert, awake, and oriented x 3, concentrates very well. Cranial nerves II-XII grossly intact. Coordination is grossly intact. There is still mild tenderness over spinous proces ses of lower lumbar spine and bilateral lumbar paraspinal. There is mild tenderness over right groin with limited range of motion of the right hip, especially on internal rotation. IMPRESSION: Low back pain, status post multiple compression fractures. Her lumbar CT scan revealed subacute compression fracture T12, L1, L3 and L5 with disk herniation L3-L4, L4-L5, L5-S1. Right hip pain, secondary to multiple myeloma and possible right hip osteoarthritis. RECOMMENDATIONS: 1. Will change tramadol 50 mg from q. 4 hours to q. 8 hours as needed. 2. The patient to continue physical therapy as prescribed. 3. Will follow up on the patient to manage her progress. 4. The patient can follow up as an outpatient upon discharge. Ata Chen MD cc: [id number] TT: 03/11/2017 15:34:32 Confirmation # [id number] Dictation # [id number]
== END 2017-03-09 14:55 | disposition home or self-care (01) | DRG 560 ==
LOC: TRCU 16:15
PROVIDERS: ADMIT Internal Medicine; ATTEND Internal Medicine
PROC: F07Z9FZ Gait Training/Functional Ambulation Treatment using Assistive, Adaptive, Supportive or Protective Equipment (ICD-10-PCS; principal; 2017-03-03)
PROC: F07Z8ZZ Transfer Training Treatment (ICD-10-PCS; 2017-03-03)
PROC: F07Z5ZZ Bed Mobility Treatment (ICD-10-PCS; 2017-03-03)
PROC: F07L6YZ Therapeutic Exercise Treatment of Musculoskeletal System - Lower Back / Lower Extremity using Other Equipment (ICD-10-PCS; 2017-03-03)
PROC: F08Z2FZ Grooming/Personal Hygiene Treatment using Assistive, Adaptive, Supportive or Protective Equipment (ICD-10-PCS; 2017-03-05)
PROC: F08Z1FZ Dressing Techniques Treatment using Assistive, Adaptive, Supportive or Protective Equipment (ICD-10-PCS; 2017-03-05)
DX: M48.56XD Collapsed vertebra, not elsewhere classified, lumbar region, subsequent encounter for fracture with routine healing (principal); C90.00 Multiple myeloma not having achieved remission; N18.3 Chronic kidney disease, stage 3 (moderate); I12.9 Hypertensive chronic kidney disease with stage 1 through stage 4 chronic kidney disease, or unspecified chronic kidney disease; M48.54XD Collapsed vertebra, not elsewhere classified, thoracic region, subsequent encounter for fracture with routine healing; M51.26 Other intervertebral disc displacement, lumbar region; K59.00 Constipation, unspecified; E89.0 Postprocedural hypothyroidism; Z87.891 Personal history of nicotine dependence; Z88.2 Allergy status to sulfonamides

== ENCOUNTER 2017-08-05 09:00 | Day surgery (SDC) | payer MEDICARE, BC ==
[2017-07-28 10:40] VITALS: BMI 20.5
[2017-08-05] MEDS ORDERED: Propofol 10 mg/ml Inj (20 ML) ONE (10:14)
[2017-08-05] MEDS ORDERED: Sodium Chloride 0.9% 1,000 ML IV SCH (11:15)
[2017-08-05 13:09] VITALS: BP 162/876; PULSE 65; RESP 16; TEMP 98; O2SAT 99
== END 2017-08-05 13:22 | disposition home or self-care (01) ==
LOC: ENDO 09:00
PROVIDERS: ATTEND Internal Medicine
DX: K62.5 Hemorrhage of anus and rectum (principal); K57.30 Diverticulosis of large intestine without perforation or abscess without bleeding; K64.8 Other hemorrhoids
CPT/HCPCS: 45380; 88305; J2704; J7040 ×2

== ENCOUNTER 2017-10-16 15:43 | Inpatient (IN) | payer MEDICARE, BC ==
[2017-10-16 15:44] VITALS: BMI 20.5
--- NOTE | 2017-10-16 15:47 | ED PDOC ---
"Arrival/HPI - General Time Seen by Provider: 10/16/17 15:45 Historian: Patient - History of Present Illness Narrative History of Present Illness (Text): 10/16/17 15:47 77 y/o female, pmh including htn/pituary adenoma/hypothyroidism/multiple myleloma/thoracic compression fracture, allergic to sulfa/citric acid, had colonoscopy 08/2017 for her routine colonoscopy as per patient, c/o watery diarrhea for the past 2 weeks with no recent traveling and no antibiotic use for the past 4 weeks. Pt. stated that she has on and off frequent diarrhea, more than usual, occasionally 3-5 times per day for the past 2 weeks which she is feeling very fatigue and tired, barely can walk, no fever or chills, no night sweat, no chest pain or shortness of breath, no palpitation, no other medical or psychological complaints. Past Medical History - Provider Review Nursing Documentation Reviewed: Yes - Infectious Disease Hx of Infectious Diseases: None - Tetanus Immunization Tetanus Immunization: Unknown - Cardiac Hx Pacemaker: No - Pulmonary Hx Respiratory Disorders: No - Neurological Hx Paralysis: No - HEENT Hx HEENT Disorder: No - Renal Hx Renal Disorder: No - Endocrine/Metabolic Hx Hypothyroidism: Yes - Hematological/Oncological Hx Blood Transfusions: Yes (X2 DOES NOT REMEMBER WHEN) Hx Blood Transfusion Reaction: No - Integumentary Hx Dermatological Disorder: No Other/Comment: multiple ble skin discolorations - Musculoskeletal/Rheumatological Hx Musculoskeletal Disorders: Yes - Gastrointestinal Hx Gastrointestinal Disorders: Yes (CONSTIPATION,POOR APPETITE ON ENSURE DAILY,) Other/Comment: left side abd pain on and off - Genitourinary/Gynecological Hx Genitourinary Disorders: Yes - Psychiatric Hx Substance Use: No - Surgical History Hx Hysterectomy: Yes Other/Comment: r breast benign growth removed - Anesthesia Hx Anesthesia Reactions: No Hx Malignant Hyperthermia: No - Suicidal Assessment Feels Threatened In Home Enviroment: No Family/Social History - Physician Review Nursing Documentation Reviewed: Yes Family/Social History: Unknown Family HX Smoking Status: Never Smoked Hx Alcohol Use: No Hx Substance Use: No Allergies/Home Meds Allergies/Adverse Reactions: Allergies Sulfa (Sulfonamide Antibiotics) Allergy (Intermediate, Verified 10/16/17 15:53) RASH citric acid Allergy (Mild, Verified 10/16/17 15:53) ITCHING WITH LARGE DOSES Home Medications: Home Meds Medication Instructions Recorded Confirmed Aspirin [Lo-Dose Aspirin EC] 81 mg PO 2XW 07/28/17 10/16/17 Levothyroxine Sodium 0.025 mg PO QPM 07/28/17 10/16/17 Megestrol Acetate [Megace] 400 mg PO QAM 07/28/17 10/16/17 Metoprolol Tartrate [Lopressor] 50 mg PO QAM 07/28/17 10/16/17 Multivitamin [Daily Terry] 1 tab PO DAILY 07/28/17 10/16/17 amLODIPine [Norvasc] 5 mg PO QPM 07/28/17 10/16/17 predniSONE [predniSONE Tab] 2.5 mg PO QAM 07/28/17 10/16/17 Review of Systems - Review of Systems Constitutional: Fatigue. absent: Fevers Eyes: absent: Vision Changes ENT: absent: Hearing Changes Respiratory: absent: SOB, Cough Cardiovascular: absent: Chest Pain Gastrointestinal: Diarrhea. absent: Abdominal Pain, Nausea, Vomiting Skin: absent: Rash, Pruritis Neurological: absent: Headache, Dizziness Psychiatric: absent: Anxiety, Depression Physical Exam Vital Signs Reviewed: Yes Vital Signs Temp Pulse Resp BP Pulse Ox 10/16/17 23:15 18 10/16/17 22:00 60 16 160/77 H 100 10/16/17 20:47 56 L 18 109/82 100 10/16/17 17:26 68 18 115/71 96 10/16/17 15:58 97.6 F 71 15 117/77 95 Temperature: Afebrile Blood Pressure: Normal Pulse: Regular Respiratory Rate: Normal Appearance: Positive for: Well-Appearing, Non-Toxic, Comfortable Pain Distress: Mild Mental Status: Positive for: Alert and Oriented X 3 - Systems Exam Head: Present: Atraumatic, Normocephalic Pupils: Present: PERRL Extroacular Muscles: Present: EOMI Conjunctiva: Present: Normal Mouth: Present: Moist Mucous Membranes Nose (Internal): Present: Normal Inspection, No Active Bleeding, Moist, Engorged , Edematous, Boggy, Clear Mucous, Rhinorrhea, Purulent Mucous, Septal Deviation , Septal Hematoma, Epistaxis, Other Neck: Present: Normal Range of Motion Respiratory/Chest: Present: Clear to Auscultation, Good Air Exchange. No: Respiratory Distress, Accessory Muscle Use Cardiovascular: Present: Regular Rate and Rhythm, Normal S1, S2, Other (1+ pedal edema bilaterally lower extremities on tibial shins. ). No: Murmurs Abdomen: No: Tenderness, Distention, Normal Bowel Sounds (+hyperactive bowel sound), Peritoneal Signs, Rebound, Guarding Back: Present: Normal Inspection. No: CVA Tenderness, Midline Tenderness, Paraspinal Tenderness Upper Extremity: Present: Normal Inspection. No: Cyanosis, Edema Lower Extremity: Present: Normal Inspection. No: Edema Neurological: Present: GCS=15, Speech Normal, Motor Func Grossly Intact, Memory Normal Skin: Present: Warm, Dry, Normal Color. No: Rashes Psychiatric: Present: Alert, Oriented x 3, Normal Insight, Normal Concentration Medical Decision Making ED Course and Treatment: 10/16/17 16:10 Differential: Colitis vs. dehydration vs. UTI vs. CHF -labs/ua/stool and c.diff toxin cultures -CT abdomen and pelvis -IVF/pepcid -Observe and reassess 10/16/17 21:50 -EKG: SR @ 65 BPM with PAC, no ST elevation or depression, no T wave inversion. -Chest xray show: ER wet read: no active disease, mildly enlarged heart. -CT abdomen and pelvis show Air-fluid levels in the colon consistent with history of diarrhea, possible enteritis, no bowel obstruction; no acute solid visceral abnormality; diffuse skeletal changes and multiple fractures consistent with history of myeloma; mild cardiomegaly and atherosclerotic disease; atelectatic changes at the lung bases -Labs are non-significant except Platete 45/BUN 38 with creatine 2.1/BNP 909 -Upon reviewing the labs and radiology studies, pt. will need to be admitted for dehydration and failure to thrive which I can not be rule out that her fatigue has no association of BNP 909 especially with the pedal edema or this can be new onset of the CHF. -Pt. is still fatigue, paging the patient's pmd Dr. Ding for admission, stool cultures and c.diff ordered. 10/16/17 21:55 -Enteritis with no elevation of wbc and afebrile, pending the stool culture and c.diff. -I spoke to Dr. Young, discussed about the labs/radiology results, agreed to admit to Dr. Ding service and call the certified medical dosimetrist, request Dr. Downing for cardiology. -I spoke to the certified medical dosimetrist Dr. Aishwarya Barnett and he will come to evaluate the patient, will discuss with Dr. Young/Toña Hernandes awared of the case and will put in the admission. 10/16/17 22:51 -UA show no UTI. - Lab Interpretations Microbiology Results: Microbiology Results 10/16/17 16:52 Stool C. difficile Antigen & Toxin A,B (M - Final Lab Results: 10/16/17 16:20 10/16/17 16:20 Lab Results 10/16/17 16:20: Triglycerides 94, Cholesterol 181, LDL Cholesterol Direct 90, HDL Cholesterol 67 H 10/16/17 16:20: Hepatitis A IgM Ab Negative, Hep Bs Antigen Negative, Hep B Core IgM Ab Negative, Hepatitis C Antibody Negative 10/16/17 16:20: Sodium 138, Potassium 3.8, Chloride 106, Carbon Dioxide 25, Anion Gap 11, BUN 38 H, Creatinine 2.1 H, Est GFR ( Amer) 28, Est GFR ( Non-Af Amer) 23, Random Glucose 73, Calcium 9.3, Magnesium 1.7, Total Bilirubin 1.0, AST 44 H, ALT 70 H, Alkaline Phosphatase 52, NT-Pro-B Natriuret Pep 909 H, Total Protein 6.3, Albumin 3.8, Globulin 2.5, Albumin/Globulin Ratio 1.5, Lipase 275 10/16/17 16:20: WBC 4.8 D, RBC 3.55, Hgb 11.4 L, Hct 33.4 L, MCV 94.1, MCH 32.1 , MCHC 34.1, RDW 15.4 H, Plt Count 45 L*, Gran % 75.8 H, Lymph % (Auto) 10.4 L, Monroe % (Auto) 11.7 H, Eos % (Auto) 1.9, Baso % (Auto) 0.2, Gran # 3.64, Lymph # 0.5 L, Monroe # 0.6, Eos # 0.1, Baso # 0.01 10/16/17 16:00: Hemoglobin A1c 5.6 I have reviewed the lab results: Yes Interpretation: Abnormal lab values (Platete 45, BUN 38, Creatine 2.1, BNP 909) - RAD Interpretation Radiology Orders: 10/16/17 16:59 CHEST PORTABLE [RAD] Stat 10/16/17 17:09 ABDOMEN & PELVIS [ABD & PELVIS PO CONTRAST ONLY] [CT] Stat CT Abdomen and pelvis: TECHNIQUE: Axial computed tomography images of the abdomen and pelvis with intravenous contrast. All CT scans at this facility use one or more dose reduction techniques, viz.: automated exposure control; ma/kV adjustment per patient size (including targeted exams where dose is matched to indication; i.e. head); or iterative reconstruction technique. Coronal and sagittal reformatted images were created and reviewed. CONTRAST: 50 mL of omni 250 wih 32 oz water administered intravenously. COMPARISON: CT - PELVIS W/O CONTRAST 2017-02-25 20:47 CT abdomen pelvis 01/06/17 not available for correlation at FINDINGS: Artifacts: Motion artifact degrades image quality. Streak artifact degrades image quality. Lower thorax: The heart is mildly enlarged. There is a hiatal hernia. There are patchy opacities at the lung bases. ABDOMEN: Liver: unremarkable Gallbladder and bile ducts: unremarkable Pancreas: Pancreas is mildly atrophic. Spleen: unremarkable ABHISHEK KATE | Final Radiology Report CONFIDENTIALITY STATEMENT This report is intended only for use by the referring physician, and only in accordance with law. If you received this in error, call [phone]. Page 2 of 2 Adrenals: unremarkable Kidneys and ureters: There are bilateral renal cysts.There is no pelvocaliectasis or ureterectasis. Stomach and bowel: Stomach is almost completely empty. Rotation is normal. There is fluid and air throughout the small bowel. There are mildly distended small bowel loops in the mid abdomen with mild wall and fold prominence. Ileocecal region is unremarkable. There is air and contrast in the colon with air-fluid levels. There is no obstruction. Appendix: See stomach and bowel PELVIS: Bladder: unremarkable Reproductive: Uterus is absent. There are no adnexal masses. ABDOMEN and PELVIS: Intraperitoneal space: There is no free air or free fluid. Bones/joints: There multiple subacute rib fractures. There are subacute right ischial and pubic fractures. There are multiple compression fractures in the lower thoracic spine and lumbar spine. There are diffuse infiltrative changes with abnormal architecture in the bony skeleton. There are injection granulomas. Vasculature: There are calcified phleboliths. There are vascular calcifications. Lymph nodes: There is no pathologic adenopathy. IMPRESSION: Air-fluid levels in the colon consistent with history of diarrhea, possible enteritis, no bowel obstruction; no acute solid visceral abnormality; diffuse skeletal changes and multiple fractures consistent with history of myeloma; mild cardiomegaly and atherosclerotic disease; atelectatic changes at the lung bases Additional findings as described above. Thank you for allowing us to participate in the care of your patient. Dictated and Authenticated by: Susannah Frederick MD 10/16/2017 9:36 PM Eastern Time ([place] & [place]) Chest xray: no active disease Burr Filer: Radiologist - EKG Interpretation EKG Interpretation (Text): 10/16/17 17:27 -EKG: SR @ 65 BPM with PAC, no ST elevation or depression, no T wave inversion. Interpreted by ED Physician: Yes Type: 12 lead EKG - Medication Orders Current Medication Orders: Amlodipine Besylate (Norvasc) 5 mg PO QPM [facility] Aspirin (Ecotrin) 81 mg PO 2XW MARCE Famotidine (Pepcid) 20 mg IVP DAILY [facility] Last Admin: 10/17/17 09:54 Dose: 20 mg IVP Administration Document 10/17/17 09:54 (Rec: 10/17/17 09:54 [id number]) Charges for Administration # of IVP Administrations 1 Home Med (Home Med) 1 unit OD Q6H MARCE Home Med (Home Med) 1 unit OD DAILY [facility] Hydralazine HCl (Apresoline) 10 mg IVP Q6 PRN PRN Reason: Systolic Blood Pressure Sodium Chloride (Sodium Chloride 0.9%) 1,000 mls @ 60 mls/hr IV .[id number] [facility] Lactobacillus Acidophilus (Bacid Acidophilus) 1 cap PO BID [facility] Last Admin: 10/17/17 09:53 Dose: 1 cap Levothyroxine Sodium (Synthroid) 25 mcg PO 0600 [facility] Last Admin: 10/17/17 05:09 Dose: 25 mcg Megestrol Acetate (Megace) 400 mg PO QAM [facility] Last Admin: 10/17/17 09:57 Dose: 400 mg Metoprolol Tartrate ([facility]op[facility]) [facility] Admin: 10/17/17 10:09 Dose: 50 mg Metronidazole (Flagyl) 500 mg PO Q8H [facility] PRN Reason: Protocol Last Admin: 10/17/17 08:08 Dose: 500 mg Multivitamins (Thera Tab) 1 tab PO DAILY [facility] Last Admin: 10/17/17 09:54 Dose: 1 tab Prednisone (Prednisone Tab) [facility] Last Admin: 10/17/17 09:54 Dose: 2.5 mg Discontinued Medications Famotidine (Pepcid) 20 mg IVP STAT STA Stop: 10/16/17 16:07 Last Admin: 10/16/17 16:42 Dose: 20 mg IVP Administration Document 10/16/17 16:42 OCS (Rec: 10/16/17 16:42 [id number] Charges for Administration # of IVP Administrations 1 Sodium Chloride (Sodium Chloride 0.9%) 1,000 mls @ 100 mls/hr IV .Q10H [facility] Last Admin: 10/16/17 16:42 Dose: 100 mls/hr eMAR Start Stop Document 10/16/17 16:42 OCS (Rec: 10/16/17 16:42 OCS [id number]) Intravenous Solution Start Date 10/16/17 Start Time 16:42 Sodium Chloride (Sodium Chloride 0.9%) 1,000 mls @ 70 mls/hr IV .[id number] [facility] Last Admin: 10/16/17 17:44 Dose: 70 mls/hr eMAR Start Stop Document 10/16/17 17:44 OCS (Rec: 10/16/17 17:44 OCS [id number]) Intravenous Solution Start Date 10/16/17 Start Time 17:44 Metronidazole (Flagyl) 500 mg PO Q8 [facility] PRN Reason: Protocol Potassium Chloride (K-Dur 20 Meq Er Tab) 40 meq PO STAT STA Stop: 12/15/17 09:16 Last Admin: 10/17/17 10:08 Dose: 40 meq - PA / DISC PAD PLATE FILLER / Resident Statement MD/DO has reviewed & agrees with the documentation as recorded. Disposition/Present on Arrival - Present on Arrival Any Indicators Present on Arrival: No History of DVT/PE: No History of Uncontrolled Diabetes: No Urinary Catheter: No History of Decub. Ulcer: No History Surgical Site Infection Following: None - Disposition Have Diagnosis and Disposition been Completed?: Yes Diagnosis: Dehydration, Renal insufficiency, Thrombocytopenia, Enteritis, CHF (congestive heart failure) Disposition: HOSPITALIZED Disposition Time: 21:57 Patient Plan: Admission, Telemetry Patient Problems: Current Active Problems Problem Status Onset Dehydration Acute Renal insufficiency Acute Thrombocytopenia Acute Enteritis Acute CHF (congestive heart failure) Acute Condition: STABLE"
[2017-10-16] MEDS ORDERED: Sodium Chloride 0.9% 1,000 ML IV SCH ×2 (16:15→16:59)
[2017-10-16 16:31] LABS: BASO # 0.01 K/mm3 (0.0-2.0); BASO % 0.2 % (0.0-3.0); EOS # 0.1 (0.0-0.7); EOS % 1.9 % (1.5-5.0); GRAN # 3.64 (1.4-6.5); GRAN % 75.8 % (50.0-68.0); HEMATOCRIT 33.4 % (36.0-48.0); LYMPH # 0.5 (1.2-3.4); LYMPH % 10.4 % (22.0-35.0); MEAN CELL VOLUME 94.1 fl (80.0-105.0); MEAN CORPUSCULAR HEMOGLOBIN 32.1 pg (25.0-35.0); MEAN CORPUSCULAR HGB CONC 34.1 g/dl (31.0-37.0); MONO # 0.6 (0.1-0.6); MONO % 11.7 % (1.0-6.0); RED CELL DISTRIBUTION WIDTH 15.4 % (11.5-14.5); WHITE BLOOD COUNT 4.8 10^3/ul (4.5-11.0)
[2017-10-16 16:46] LABS: ALB/GLOB RATIO 1.5 (1.1-1.8); CALCIUM 9.3 mg/dL (8.4-10.5); MAGNESIUM 1.7 mg/dL (1.7-2.2); POTASSIUM 3.8 mmol/L (3.6-5.0); TOTAL PROTEIN 6.3 g/dL (5.8-8.3)
[2017-10-16] MEDS ORDERED: Iohexol 240 (50 ml) ONE (17:36)
[2017-10-16 18:08] LABS: PLATELET COUNT 45 10^3/uL (120.0-450.0)
--- NOTE | 2017-10-16 21:36 | CT ---
EXAM: CT Abdomen and Pelvis With Intravenous Contrast EXAM DATE/TIME: 10/16/2017 5:09 PM CLINICAL HISTORY: 77 years old, female; Signs and symptoms; Other: Diarrhea; Prior surgery; Surgery date: 6+ months; Surgery type: HX. Hyserectomy; Patient HX: HX multiple myeloma on chemotherapy; Additional info: Diarrhea x 2 weeks, TECHNIQUE: Axial computed tomography images of the abdomen and pelvis with intravenous contrast. All CT scans at this facility use one or more dose reduction techniques, viz.: automated exposure control; ma/kV adjustment per patient size (including targeted exams where dose is matched to indication; i.e. head); or iterative reconstruction technique. Coronal and sagittal reformatted images were created and reviewed. CONTRAST: 50 mL of omni 250 wih 32 oz water administered intravenously. COMPARISON: CT - PELVIS W/O CONTRAST 2017-02-25 20:47 CT abdomen pelvis 01/06/17 not available for correlation at FINDINGS: Artifacts: Motion artifact degrades image quality. Streak artifact degrades image quality. Lower thorax: The heart is mildly enlarged. There is a hiatal hernia. There are patchy opacities at the lung bases. ABDOMEN: Liver: unremarkable Gallbladder and bile ducts: unremarkable Pancreas: Pancreas is mildly atrophic. Spleen: unremarkable Adrenals: unremarkable Kidneys and ureters: There are bilateral renal cysts.There is no pelvocaliectasis or ureterectasis. Stomach and bowel: Stomach is almost completely empty. Rotation is normal. There is fluid and air throughout the small bowel. There are mildly distended small bowel loops in the mid abdomen with mild wall and fold prominence. Ileocecal region is unremarkable. There is air and contrast in the colon with air-fluid levels. There is no obstruction. Appendix: See stomach and bowel PELVIS: Bladder: unremarkable Reproductive: Uterus is absent. There are no adnexal masses. ABDOMEN and PELVIS: Intraperitoneal space: There is no free air or free fluid. Bones/joints: There multiple subacute rib fractures. There are subacute right ischial and pubic fractures. There are multiple compression fractures in the lower thoracic spine and lumbar spine. There are diffuse infiltrative changes with abnormal architecture in the bony skeleton. There are injection granulomas. Vasculature: There are calcified phleboliths. There are vascular calcifications. Lymph nodes: There is no pathologic adenopathy. IMPRESSION: Air-fluid levels in the colon consistent with history of diarrhea, possible enteritis, no bowel obstruction; no acute solid visceral abnormality; diffuse skeletal changes and multiple fractures consistent with history of myeloma; mild cardiomegaly and atherosclerotic disease; atelectatic changes at the lung bases Additional findings as described above.
--- NOTE | 2017-10-16 22:09 | CP.PCM.HP ---
History of Present Illness - History of Present Illness History of Present Illness: CC: diarrhea Subjective: HPI: Patient is a 77 year old female with past medical history of multiple myeloma s/ p chemo, uterine fibroids, hypothyroidism secondary to thyroidectomy, hpl and HTN who presents to the emergency department via EMS for evaluation and treatment of intermittent diarrhea which began 2 weeks ago without a specific provoking event. The diarrhea is described as nonbloody, nonpurulent, loose, and watery. Admits to several episodes today. Endorses that there are also days where she is constipated during the aforementioned two week period. Denies recent travel and sick contacts. Patient denies intractable headache, fever, chills, dizziness, blurry vision, ringing in the ears, chest pain, shortness of breath, abdominal pain, nausea, vomiting, constipation, and urinary symptoms. ROS: 12 point review of systems negative except as indicated in HPI PMHx: Multiple myeloma, uterine fibroids, hypothyroidism secondary to thyroidectomy, and HTN Past Surgical Hx: thyroidectomy, hysterectomy with b/l oophorectomy, breast mass removal, pituitary adenoma s/p transphenoidal resection x 3, Allergies: Sulfa drugs (hives) Social Hx: quit smoking 50 years ago, very occasional alcohol use socially, denies hx of drug abuse Family Hx: breast cancer (mother), HTN, Diabetes (mother and father) Medications: Reviewed and as per chart PMD: Dr. Toña Soler/onc: Dr. Huffman Physical Examination: - Constitutional Appears: Non-toxic, No Acute Distress - Head Exam Head Exam: atraumatic, normocephalic - Eye Exam Eye Exam: Normal appearance, PERRL. absent: Scleral icterus - ENT Exam ENT Exam: Mucous Membranes Moist - Neck Exam Neck exam: Normal Inspection - Respiratory Exam Respiratory Exam: Normal Breathing Pattern - Cardiovascular Exam Cardiovascular Exam: +S1, +S2. absent: Gallop, JVD - GI/Abdominal Exam GI & Abdominal Exam: Normal Bowel Sounds, absent: Distended, Guarding, Pulsatile Mass, Rebound, Rigid - Extremities Exam Extremities exam: Negative for: calf tenderness - Neurological Exam Neurological exam: Patient is awake, alert, responds to verbal stimuli, answers questions appropriately, follows commands, and moves extremities past midline - Psychiatric Exam Psychiatric exam: Normal Affect, Normal Mood - Skin Skin Exam: warm and dry Assessment and Plan: Patient is a 77 year old female with past medical history of multiple myeloma on chemo and radiation, uterine fibroids, hypothyroidism secondary to thyroidectomy, and HTN who was admitted for evaluation and treatment of diarrhea. Diarrhea, Enteritis, Questionable IBS - CT abdomen and pelvis reviewed and appreciated- Air-fluid levels in the colon consistent with history of diarrhea, possible enteritis, no bowel obstruction; no acute solid visceral abnormality; diffuse skeletal changes and multiple fractures consistent with history of myeloma; mild cardiomegaly and atherosclerotic disease; atelectatic changes at the lung bases - Probiotic - C. Diff assay pending - Metronidazole - IVF NS @ 60 Elevated BNP - mild cardiomegaly noted on CT - CXR reviewed and appreciated- costophrenic angles visible, patient did not clinically present volume overloaded - Conditions/characteristics associated with elevated BNP other than CHF: Acute on chronic renal failure, Hypertension (HTN), older age, female gendrer, hyperthyroidism - HR and BP reviewed, trended, and appreciated - strict i and o - daily weight - ECHO pending Thrombocytopenia; History of Multiple Myeloma - avoid platelet damaging drugs - hematology oncology consultation Elevated LFTs - elevated since february 2017 - avoid hepatotoxins - monitor closely via CMP - hepatits panel pending - HIV rapid screen pending KAMAR on CKD - creatinine and Bun reviewed, trended, and appreciated - avoid nephrotoxins - continue IVF NS @ 60 - consider nephrology consult pending patients clinical course Hx of Anemia - Hgb reviewed, trended, and appreciated - monitor closely via CBC Hx of Htn - c/w norvasc and lopressor with holding parameters - hydralazine 5mg IV q6 prn SBP > 180, holding parameters- do not administer if HR is > 100 bpm Hx of HPL - lipid profile pending - no statin at this time due to elevated LFTs Hx of Hypothyroidism - c/w home synthroid - tsh pending Prophylaxis - DVT ppx- scds in the setting of thrombocytopenia - GI ppx- famotidine Patient case discussed with and approved by attending physician. 10/16/17 22:04 Present on Admission - Present on Admission Any Indicators Present on Admission: No Past Patient History - Infectious Disease Hx of Infectious Diseases: None - Tetanus Immunizations Tetanus Immunization: Unknown - Past Social History Smoking Status: Never Smoked - CARDIAC Hx Pacemaker: No - PULMONARY Hx Respiratory Disorders: No - NEUROLOGICAL Hx Paralysis: No - HEENT Hx HEENT Problems: No - RENAL Hx Chronic Kidney Disease: No - ENDOCRINE/METABOLIC Hx Hypothyroidism: Yes - HEMATOLOGICAL/ONCOLOGICAL Hx Blood Transfusions: Yes (X2 DOES NOT REMEMBER WHEN) Hx Blood Transfusion Reaction: No - INTEGUMENTARY Hx Dermatological Problems: No Other/Comment: multiple ble skin discolorations - MUSCULOSKELETAL/RHEUMATOLOGICAL Hx Musculoskeletal Disorders: Yes - GASTROINTESTINAL Hx Gastrointestinal Disorders: Yes (CONSTIPATION,POOR APPETITE ON ENSURE DAILY,) Other/Comment: left side abd pain on and off - GENITOURINARY/GYNECOLOGICAL Hx Genitourinary Disorders: Yes - PSYCHIATRIC Hx Substance Use: No - SURGICAL HISTORY Hx Hysterectomy: Yes Other/Comment: r breast benign growth removed - ANESTHESIA Hx Anesthesia Reactions: No Hx Malignant Hyperthermia: No Meds Allergies/Adverse Reactions: Allergies Allergy/AdvReac Type Severity Reaction Status Date / Time Sulfa (Sulfonamide Allergy Intermediate RASH Verified 10/16/17 15:53 Antibiotics) citric acid Allergy Mild ITCHING Verified 10/16/17 15:53 Results - Vital Signs Recent Vital Signs: Last Vital Signs Temp 97.6 F 10/16/17 15:58 Pulse 56 L 10/16/17 20:47 Resp 18 10/16/17 20:47 BP 109/82 10/16/17 20:47 Pulse Ox 100 10/16/17 20:47 - Labs Result Diagrams: 10/16/17 16:20 10/16/17 16:20
[2017-10-16 22:37] LABS: URINE BILIRUBIN NEGATIVE (NEGATIVE); URINE BLOOD SMALL (NEGATIVE); URINE GLUCOSE (UA) NEGATIVE (NEGATIVE); URINE KETONE TRACE mg/dL (NEGATIVE); URINE LEUKOCYTE ESTERASE NEGATIVE Leu/uL (NEGATIVE); URINE PROTEIN NEGATIVE mg/dL (<30 mg/dL); URINE UROBILINOGEN 0.2 E.U./dL (<1 E.U./dL)
[2017-10-16 22:49] LABS: URINE APPEARANCE SL CLOUDY (CLEAR); URINE COLOR YELLOW (YELLOW)
[2017-10-16 22:50] LABS: URINE BACTERIA MOD (NEG); URINE EPITHELIAL CELLS 0 - 2 /hpf (0-5); URINE WBC 0 - 2 /hpf (0-6)
[2017-10-17] MEDS: Lactobacillus Acidophilus 500 MU Cap PO SCH ×3 (00:04→17:41)
[2017-10-17 00:05] LABS: CHOLESTEROL 181 mg/dL (130-200)
[2017-10-17] MEDS ORDERED: Sodium Chloride 0.9% 1,000 ML IV SCH (01:41)
[2017-10-17] MEDS: Levothyroxine 25 MCG TAB PO SCH (05:09)
[2017-10-17 06:34] LABS: EOS # 0.1 (0.0-0.7); EOS % 2.3 % (1.5-5.0); GRAN # 2.22 (1.4-6.5); GRAN % 72.7 % (50.0-68.0); HEMATOCRIT 28.5 % (36.0-48.0); LYMPH # 0.4 (1.2-3.4); LYMPH % 12.5 % (22.0-35.0); MEAN CELL VOLUME 93.4 fl (80.0-105.0); MEAN CORPUSCULAR HEMOGLOBIN 31.5 pg (25.0-35.0); MEAN CORPUSCULAR HGB CONC 33.7 g/dl (31.0-37.0); MONO # 0.4 (0.1-0.6); MONO % 12.5 % (1.0-6.0); RED CELL DISTRIBUTION WIDTH 15.4 % (11.5-14.5); WHITE BLOOD COUNT 3.1 10^3/ul (4.5-11.0)
[2017-10-17 06:43] LABS: PLATELET COUNT 32 10^3/uL (120.0-450.0)
[2017-10-17 06:48] LABS: ALB/GLOB RATIO 1.4 (1.1-1.8); BILIRUBIN,TOTAL 0.8 mg/dL (0.2-1.3); CALCIUM 7.9 mg/dL (8.4-10.5); POTASSIUM 3.5 mmol/L (3.6-5.0); TOTAL PROTEIN 4.9 g/dL (5.8-8.3)
--- NOTE | 2017-10-17 08:57 | RAD ---
HISTORY: medical clearance COMPARISON: 02/25/2017 FINDINGS: LUNGS: No active pulmonary disease. PLEURA: No significant pleural effusion identified, no pneumothorax apparent. CARDIOVASCULAR: Mild cardiomegaly and aortic tortuosity OSSEOUS STRUCTURES: No significant abnormalities. VISUALIZED UPPER ABDOMEN: Normal. OTHER FINDINGS: None. IMPRESSION: No active disease.
[2017-10-17] MEDS ORDERED: Potassium Chloride 20 mEq ER Tab PO STA (09:15)
[2017-10-17] MEDS: Multivitamin Therapeutic Tab PO SCH (09:54)
[2017-10-17] MEDS: Megestrol Acetate 40 mg/ml Cup PO SCH (09:57)
[2017-10-17] MEDS ORDERED: Home Med 1 UNIT OD SCH ×4 (14:30→15:00)
--- NOTE | 2017-10-17 15:11 | CP.PCM.PN ---
Subjective - Date & Time of Evaluation Date of Evaluation: 10/17/17 Time of Evaluation: 07:45 - Subjective Subjective: PGY [address] POMPA/DR. MONTEIRO Patient seen and evaluated at bedside. No acute events reported overnight. Patient resting comfortably in bed. Patient reports improvement in her condition since admission, denies diarrhea, abdominal pain, nausea, vomiting, pain fatigue. Patient denies dizziness, syncope, bright red per rectum. Patient renal function has improved with light fluids. Patient denies chest pain, shortness of breath, weakness, numbness, fever, chills. Objective - Vital Signs/Intake and Output Vital Signs (last 24 hours): Temp Pulse Resp BP Pulse Ox 98 F 56 L 18 124/59 L 96 10/17/17 11:54 10/17/17 11:54 10/17/17 11:54 10/17/17 11:54 10/17/17 06:00 - Medications Medications: Current Medications Amlodipine Besylate (Norvasc) 5 mg PO QPM [facility] Aspirin (Ecotrin) 81 mg PO 2XW [facility] Famotidine (Pepcid) 20 mg IVP DAILY [facility] Last Admin: 10/17/17 09:54 Dose: 20 mg Home Med (Home Med) 1 unit OD DAILY [facility] Home Med (Home Med) 1 unit OD Q6H [facility] Hydralazine HCl (Apresoline) 10 mg IVP Q6 PRN PRN Reason: Systolic Blood Pressure Sodium Chloride (Sodium Chloride 0.9%) 1,000 mls @ 60 mls/hr IV .[id number] [facility] Lactobacillus Acidophilus (Bacid Acidophilus) 1 cap PO BID [facility] Last Admin: 10/17/17 09:53 Dose: 1 cap Levothyroxine Sodium (Synthroid) 25 mcg PO 0600 [facility] Last Admin: 10/17/17 05:09 Dose: 25 mcg Megestrol Acetate (Megace) 400 mg PO QAM [facility] Last Admin: 10/17/17 09:57 Dose: 400 mg Metoprolol Tartrate (Lopressor) 50 mg PO QAM [facility] Last Admin: 10/17/17 10:09 Dose: 50 mg Metronidazole (Flagyl) 500 mg PO Q8H [facility] PRN Reason: Protocol Last Admin: 10/17/17 08:08 Dose: 500 mg Multivitamins (Thera Tab) 1 tab PO DAILY [facility] Last Admin: 10/17/17 09:54 Dose: 1 tab Prednisone (Prednisone Tab) 2.5 mg PO QAM [facility] Last Admin: 10/17/17 09:54 Dose: 2.5 mg - Labs Labs: 10/17/17 05:30 10/17/17 05:30 - Constitutional Appears: No Acute Distress - Head Exam Head Exam: ATRAUMATIC, NORMAL INSPECTION, NORMOCEPHALIC - Eye Exam Eye Exam: EOMI, PERRL - ENT Exam ENT Exam: Mucous Membranes Moist - Respiratory Exam Respiratory Exam: Clear to Ausculation Bilateral, NORMAL BREATHING PATTERN. absent: Rales, Rhonchi, Wheezes - Cardiovascular Exam Cardiovascular Exam: REGULAR RHYTHM, +S1, +S2 - GI/Abdominal Exam GI & Abdominal Exam: Soft, Normal Bowel Sounds. absent: Firm, Rigid - Extremities Exam Extremities Exam: Normal Capillary Refill, Pedal Edema (trace) - Back Exam Back Exam: NORMAL INSPECTION - Neurological Exam Neurological Exam: Alert, Awake, Oriented x3 Neuro motor strength exam: Left Upper Extremity: 5, Right Upper Extremity: 5, Left Lower Extremity: 5, Right Lower Extremity: 5 - Psychiatric Exam Psychiatric exam: Normal Affect, Normal Mood - Skin Skin Exam: Dry, Intact. absent: Rash Assessment and Plan - Assessment and Plan (Free Text) Assessment: Patient is a 77 year old female with past medical history of multiple myeloma on chemo and radiation, uterine fibroids, hypothyroidism secondary to thyroidectomy, and HTN who was admitted for evaluation and treatment of diarrhea. Plan: 1. Diarrhea, Enteritis, Questionable IBS - CT abdomen and pelvis reviewed and appreciated- Air-fluid levels in the colon consistent with history of diarrhea, possible enteritis, no bowel obstruction; no acute solid visceral abnormality; diffuse skeletal changes and multiple fractures consistent with history of myeloma; mild cardiomegaly and atherosclerotic disease; atelectatic changes at the lung bases - Probiotic - C. Diff assay negative - Metronidazole - IVF NS @ 60 2. Pancytopenia; History of Multiple Myeloma - s/p chemotherapy, last session was friday of this past week - avoid platelet damaging drugs - hematology oncology consultation 3. KAMAR on CKD - creatinine and Bun reviewed, trended, and appreciated - avoid nephrotoxins - continue IVF NS @ 60 - consider nephrology consult pending patients clinical course 4. Elevated BNP - mild cardiomegaly noted on CT - CXR reviewed and appreciated- costophrenic angles visible, patient did not clinically present volume overloaded - Conditions/characteristics associated with elevated BNP other than CHF: Acute on chronic renal failure, Hypertension (HTN), older age, female gendrer, hyperthyroidism - HR and BP reviewed, trended, and appreciated - strict i and o - daily weight - ECHO final read pending 5. Elevated LFTs - elevated since february 2017 - avoid hepatotoxins - monitor closely via CMP - hepatits panel negative - HIV rapid screen pending 6. Hx of Anemia - Hgb reviewed, trended, and appreciated - daily CBC 7. Hx of Htn - c/w norvasc and lopressor with holding parameters - hydralazine 5mg IV q6 prn SBP > 180, holding parameters- do not administer if HR is > 100 bpm 8. Hx of HPL - LFT with elevated HDL - no statin at this time due to elevated LFTs - restart tomorrow 9. Hx of Hypothyroidism - c/w home synthroid - tsh nml Prophylaxis - DVT ppx- scds in the setting of thrombocytopenia - GI ppx- famotidine Patient case discussed with and approved by attending physician
--- NOTE | 2017-10-17 16:38 | CARD ---
APPROVED REPORT EXAM: Two-dimensional and M-mode echocardiogram with Doppler and color Doppler. INDICATION Abnormal EKG/Arrhythmia 2D DIMENSIONS Left Atrium (2D)3.7 (1.6-4.0cm)IVSd1.0 (0.7-1.1cm) LVDd3.8 (3.9-5.9cm)PWd1.4 (0.7-1.1cm) LVDs2.3 (2.5-4.0cm)FS (%) 38.3 % LVEF (%)69.4 (>50%) M-Mode DIMENSIONS Aortic Root2.60 (2.2-3.7cm)Aortic Cusp Exc.2.00 (1.5-2.0cm) Aortic Valve AoV Peak Qzqpduhp395.0cm/Trish Peak GR.10mmHg Mitral Valve MV E Nakxmzza29.0cm/sMV A Vaxlaxcj17.4cm/sE/A ratio0.7 TDI E/Lateral E'0.0E/Medial E'0.0 Tricuspid Valve TR Peak Mbypgykl726rm/sRAP [id number] Peak Gr.28mmHg [id number] LEFT VENTRICLE The left ventricle is normal size. There is normal left ventricular wall thickness. The left ventricular function is normal. The left ventricular ejection fraction is within the normal range. There is normal LV segmental wall motion. Transmitral Doppler flow pattern is Grade I-abnormal relaxation pattern. RIGHT VENTRICLE The right ventricle is normal size. There is normal right ventricular wall thickness. The right ventricular systolic function is normal. ATRIA The left atrium size is normal. The right atrium size is normal. AORTIC VALVE The aortic valve is mildly thickened. There is mild aortic regurgitation. There is no aortic valvular stenosis. MITRAL VALVE The mitral valve is normal in structure. There is no mitral valve regurgitation noted. TRICUSPID VALVE There is mild tricuspid regurgitation. There is mild pulmonary hypertension. PULMONIC VALVE There is trace pulmonic valvular regurgitation. GREAT VESSELS The aortic root is normal in size. The IVC was not visualized. PERICARDIAL EFFUSION There is no pericardial effusion. <Conclusion> The left ventricle is normal size. There is normal left ventricular wall thickness. The left ventricular function is normal. The left ventricular ejection fraction is within the normal range. There is normal LV segmental wall motion. Transmitral Doppler flow pattern is Grade I-abnormal relaxation pattern. There is mild aortic regurgitation. There is mild tricuspid regurgitation. There is mild pulmonary hypertension.
[2017-10-17] MEDS ORDERED: FLURBIPROFEN 0.03% OP PRN (16:54)
--- NOTE | 2017-10-17 17:22 | CP.PCM.CON ---
History of Present Illness - History of Present Illness History of Present Illness: 77 yo woman with history of multiple myeloma, was on PO Revlimid, admitted with diarrhea, now s/p IVF feeling much better. She was told to d/c revlimid and steroids, to see Dr. Huffman on Friday. Denies fever, chills, vomiting. Past Patient History - Infectious Disease Hx of Infectious Diseases: None - Tetanus Immunizations Tetanus Immunization: Unknown - Past Social History Smoking Status: Never Smoked - CARDIAC Hx Pacemaker: No - PULMONARY Hx Respiratory Disorders: No - NEUROLOGICAL Hx Paralysis: No - HEENT Hx HEENT Problems: No - RENAL Hx Chronic Kidney Disease: No - ENDOCRINE/METABOLIC Hx Hypothyroidism: Yes - HEMATOLOGICAL/ONCOLOGICAL Hx Blood Transfusions: Yes (X2 DOES NOT REMEMBER WHEN) Hx Blood Transfusion Reaction: No - INTEGUMENTARY Hx Dermatological Problems: No Other/Comment: multiple ble skin discolorations - MUSCULOSKELETAL/RHEUMATOLOGICAL Hx Musculoskeletal Disorders: Yes - GASTROINTESTINAL Hx Gastrointestinal Disorders: Yes (CONSTIPATION,POOR APPETITE ON ENSURE DAILY,) Other/Comment: left side abd pain on and off - GENITOURINARY/GYNECOLOGICAL Hx Genitourinary Disorders: Yes - PSYCHIATRIC Hx Substance Use: No - SURGICAL HISTORY Hx Hysterectomy: Yes Other/Comment: r breast benign growth removed - ANESTHESIA Hx Anesthesia Reactions: No Hx Malignant Hyperthermia: No Meds Allergies/Adverse Reactions: Allergies Allergy/AdvReac Type Severity Reaction Status Date / Time Sulfa (Sulfonamide Allergy Intermediate RASH Verified 10/16/17 15:53 Antibiotics) citric acid Allergy Mild ITCHING Verified 10/16/17 15:53 - Medications Medications: Current Medications Amlodipine Besylate (Norvasc) 5 mg PO QPM [facility] Aspirin (Ecotrin) 81 mg PO 2XW [facility] Famotidine (Pepcid) 20 mg IVP DAILY [facility] Last Admin: 10/17/17 09:54 Dose: 20 mg Flurbiprofen Sodium (Ocufen 0.3% Opht) 0.1 ml OP PRN PRN PRN Reason: Pain, Mild (1-3) Home Med (Home Med) 1 unit OD DAILY [facility] Home Med (Home Med) 1 unit OD Q8H [facility] Hydralazine HCl (Apresoline) 10 mg IVP Q6 PRN PRN Reason: Systolic Blood Pressure Sodium Chloride (Sodium Chloride 0.9%) 1,000 mls @ 60 mls/hr IV .[id number] [facility] Lactobacillus Acidophilus (Bacid Acidophilus) 1 cap PO BID [facility] Last Admin: 10/17/17 09:53 Dose: 1 cap Levothyroxine Sodium (Synthroid) 25 mcg PO 0600 [facility] Last Admin: 10/17/17 05:09 Dose: 25 mcg Megestrol Acetate (Megace) 400 mg PO QAM [facility] Last Admin: 10/17/17 09:57 Dose: 400 mg Metoprolol [facility] ([facility]) [facility] Last Admin: 10/17/17 10:09 Dose: 50 mg Metronidazole (Flagyl) 500 mg PO Q8H [facility] PRN Reason: Protocol Last Admin: 10/17/17 08:08 Dose: 500 mg Multivitamins (Thera Tab) 1 tab PO DAILY [facility] Last Admin: 10/17/17 09:54 Dose: 1 tab Prednisone (Prednisone Tab) [facility] Last Admin: 10/17/17 09:54 Dose: 2.5 mg Results - Vital Signs Recent Vital Signs: Last Vital Signs Temp 98 F 10/17/17 11:54 Pulse 56 L 10/17/17 11:54 Resp 18 10/17/17 11:54 BP 124/59 L 10/17/17 11:54 Pulse Ox 96 10/17/17 06:00 - Labs Result Diagrams: 10/17/17 05:30 10/17/17 05:30 Labs: Laboratory Results - last 24 hr 10/16/17 10/17/17 10/17/17 22:35 05:30 05:30 WBC 3.1 L D RBC 3.05 L Hgb 9.6 L Hct 28.5 L MCV 93.4 MCH 31.5 MCHC 33.7 RDW 15.4 H Plt Count 32 L* Gran % 72.7 H Lymph % (Auto) 12.5 L Gallia % (Auto) 12.5 H Eos % (Auto) 2.3 Baso % (Auto) 0.0 Gran # 2.22 Lymph # 0.4 L Gallia # 0.4 Eos # 0.1 Baso # 0.00 Sodium 134 Potassium 3.5 L Chloride 109 H Carbon Dioxide 20 L Anion Gap 9 L BUN 27 H Creatinine 1.5 H Est GFR ( Amer) 41 Est GFR (Non-Af Amer) 34 POC Glucose (mg/dL) Random Glucose 55 L Calcium 7.9 L Magnesium Total Bilirubin 0.8 AST 31 ALT 65 H Alkaline Phosphatase 42 Total Protein 4.9 L Albumin 2.8 L Globulin 2.1 Albumin/Globulin Ratio 1.4 TSH 3rd Generation Urine Color Yellow Urine Appearance Sl cloudy Urine pH 6.0 Ur Specific Novi 1.015 Urine Protein Negative Urine Glucose (UA) Negative Urine Ketones Trace H Urine Blood Small H Urine Nitrate Negative Urine Bilirubin Negative Urine Urobilinogen 0.2 Ur Leukocyte Esterase Negative Urine RBC 1 - 3 Urine WBC 0 - 2 Ur Epithelial Cells 0 - 2 Urine Bacteria Mod 10/17/17 10/17/17 10/17/17 05:30 05:30 10:15 WBC RBC Hgb Hct MCV MCH MCHC RDW Plt Count Gran % Lymph % (Auto) Gallia % (Auto) Eos % (Auto) Baso % (Auto) Gran # Lymph # Gallia # Eos # Baso # Sodium Potassium Chloride Carbon Dioxide Anion Gap BUN Creatinine Est GFR ( Amer) Est GFR (Non-Af Amer) POC Glucose (mg/dL) 78 Random Glucose Calcium Magnesium 1.5 L Total Bilirubin AST ALT Alkaline Phosphatase Total Protein Albumin Globulin Albumin/Globulin Ratio TSH 3rd Generation 1.53 Urine Color Urine Appearance Urine pH Ur Specific Novi Urine Protein Urine Glucose (UA) Urine Ketones Urine Blood Urine Nitrate Urine Bilirubin Urine Urobilinogen Ur Leukocyte Esterase Urine RBC Urine WBC Ur Epithelial Cells Urine Bacteria Assessment & Plan - Assessment and Plan (Free Text) Assessment: Multiple myeloma, diagnosed several years ago, currently on maintenance PO Revlimid, Diarrhea, ? secondary to Revlimid, which is currently on hold. The patient is cleared to go home from oncology standpoint as the patients symptoms are better.
[2017-10-17] MEDS: Home Med 1 UNIT OD SCH (17:43)
[2017-10-17 17:50] VITALS: O2SAT 100
--- NOTE | 2017-10-17 18:30 | CARD ---
APPROVED REPORT EKG Measurement Heart [id number] [id number] <Conclusion> Sinus rhythm with premature atrial complexes Cannot rule out Anterior infarct, age undetermined Abnormal ECG
--- NOTE | 2017-10-17 21:40 | CON ---
CARDIOLOGY CONSULTATION DATE: 10/17/2017 HISTORY: The patient is a 77-year-old woman, who presents with diarrhea and GI complaints. She was found to have elevated ProBNP. The patient denies shortness of breath. Denies chest pain. There is no previous cardiac history. The patient's cardiac risk factors include hypertension without diabetes mellitus. No previous myocardial infarction in the past. SOCIAL HISTORY: The patient was a former smoker, stopped 50 years ago. REVIEW OF SYSTEMS: A 14-point review of systems was reviewed in detail. No cardiac symptomatology noted. Negative pedal edema. PHYSICAL EXAM: VITAL SIGNS: Blood pressure is 124/60, the heart rate is in the 50s. NECK: Negative JVD. LUNGS: Clear to auscultation. HEART: Reveals S1 and S2. EXTREMITIES: Without edema. EKG shows normal sinus rhythm with frequent APCs and poor R-wave progression. Echocardiogram reveals good LV function, LVH, as well as [id number] pulmonary hypertension. LABORATORIES: BUN is 9 with a creatinine of 1.5. Troponins were not done. ProBNP was 909. IMPRESSION: 1. Diarrhea which is now better. 2. No evidence for congestive heart failure by physical exam nor by chest x-ray. 3. Mild pulmonary hypertension. 4. Systemic pulmonary hypertension. 5. Left ventricular hypertrophy. 6. Elevated ProBNP, this is likely related to her pulmonary hypertension and is has not resulted in any clinical symptoms. Given these findings, the treatment should be directed at her diarrhea as well as controlling her blood pressure. At this time, no further cardiac workup is necessary. Bryan Downing MD
[2017-10-18 00:08] VITALS: RESP 20
[2017-10-18] MEDS: Home Med 1 UNIT OD SCH ×3 (02:40→09:54)
[2017-10-18] MEDS: Levothyroxine 25 MCG TAB PO SCH (05:24)
[2017-10-18 07:35] LABS: EOS % 1.2 % (1.5-5.0); GRAN # 1.46 (1.4-6.5); GRAN % 60.1 % (50.0-68.0); HEMATOCRIT 27.6 % (36.0-48.0); LYMPH # 0.6 (1.2-3.4); LYMPH % 25.5 % (22.0-35.0); MEAN CELL VOLUME 93.6 fl (80.0-105.0); MEAN CORPUSCULAR HEMOGLOBIN 31.9 pg (25.0-35.0); MEAN CORPUSCULAR HGB CONC 34.1 g/dl (31.0-37.0); MONO # 0.3 (0.1-0.6); MONO % 13.2 % (1.0-6.0); RED CELL DISTRIBUTION WIDTH 15.5 % (11.5-14.5)
[2017-10-18 08:03] LABS: BILIRUBIN,TOTAL 0.6 mg/dL (0.2-1.3); CALCIUM 7.7 mg/dL (8.4-10.5); POTASSIUM 4.1 mmol/L (3.6-5.0); TOTAL PROTEIN 4.9 g/dL (5.8-8.3)
[2017-10-18 08:19] LABS: ALB/GLOB RATIO 1.5 (1.1-1.8)
[2017-10-18 08:30] LABS: PLATELET COUNT 28 10^3/uL (120.0-450.0); WHITE BLOOD COUNT 2.4 10^3/ul (4.5-11.0)
[2017-10-18] MEDS: Megestrol Acetate 40 mg/ml Cup PO SCH (09:50)
[2017-10-18] MEDS: Multivitamin Therapeutic Tab PO SCH (09:51)
[2017-10-18] MEDS: Lactobacillus Acidophilus 500 MU Cap PO SCH (09:51)
[2017-10-18 11:47] VITALS: BP 155/77; PULSE 57; TEMP 97.6
--- NOTE | 2017-10-18 12:59 | CP.PCM.DIS ---
<Ammon Larose - Last Filed: 10/18/17 12:56> Provider - Provider Date of Admission: 10/16/17 21:54 Attending physician: Adrian Ding MD Primary care physician: Rj Rapp MD Consults: Heme/Onc Time Spent in preparation of Discharge (in minutes): 40 Hospital Course - Lab Results Lab Results: Most Recent Lab Values WBC 2.4 10^3/ul (4.5-11.0) L* D 10/18/17 06:00 RBC 2.95 10^6/uL (3.5-6.1) L 10/18/17 06:00 Hgb 9.4 g/dL (12.0-16.0) L 10/18/17 06:00 Hct 27.6 % (36.0-48.0) L 10/18/17 06:00 MCV 93.6 fl (80.0-105.0) 10/18/17 06:00 MCH 31.9 pg (25.0-35.0) 10/18/17 06:00 MCHC 34.1 g/dl (31.0-37.0) 10/18/17 06:00 RDW 15.5 % (11.5-14.5) H 10/18/17 06:00 Plt Count 28 10^3/uL (120.0-450.0) L* 10/18/17 06:00 Gran % 60.1 % (50.0-68.0) 10/18/17 06:00 Lymph % (Auto) 25.5 % (22.0-35.0) 10/18/17 06:00 Phelps % (Auto) 13.2 % (1.0-6.0) H 10/18/17 06:00 Eos % (Auto) 1.2 % (1.5-5.0) L 10/18/17 06:00 Baso % (Auto) 0.0 % (0.0-3.0) 10/18/17 06:00 Gran # 1.46 (1.4-6.5) 10/18/17 06:00 Lymph # 0.6 (1.2-3.4) L 10/18/17 06:00 Phelps # 0.3 (0.1-0.6) 10/18/17 06:00 Eos # 0.0 (0.0-0.7) 10/18/17 06:00 Baso # 0.00 K/mm3 (0.0-2.0) 10/18/17 06:00 Sodium 134 mmol/L (132-148) 10/18/17 06:00 Potassium 4.1 mmol/L (3.6-5.0) 10/18/17 06:00 Chloride 109 mmol/L (98-107) H 10/18/17 06:00 Carbon Dioxide 19 mmol/L (21-33) L 10/18/17 06:00 Anion Gap 10 (10-20) 10/18/17 06:00 BUN 22 mg/dL (7-21) H 10/18/17 06:00 Creatinine 1.5 mg/dl (0.7-1.2) H 10/18/17 06:00 Est GFR ( Amer) 41 10/18/17 06:00 Est GFR (Non-Af Amer) 34 10/18/17 06:00 POC Glucose (mg/dL) 115 mg/dL (65-110) H 10/17/17 11:14 Random Glucose 65 mg/dL (70-110) L 10/18/17 06:00 Hemoglobin A1c 5.6 % (4.2-6.5) 10/16/17 16:00 Calcium 7.7 mg/dL (8.4-10.5) L 10/18/17 06:00 Magnesium 1.5 mg/dL (1.7-2.2) L 10/17/17 05:30 Total Bilirubin 0.6 mg/dL (0.2-1.3) 10/18/17 06:00 AST 26 U/L (14-36) 10/18/17 06:00 ALT 56 U/L (7-56) 10/18/17 06:00 Alkaline Phosphatase 42 U/L (38-126) 10/18/17 06:00 NT-Pro-B Natriuret Pep 909 pg/mL (0-450) H 10/16/17 16:20 Total Protein 4.9 g/dL (5.8-8.3) L 10/18/17 06:00 Albumin 2.9 g/dL (3.0-4.8) L 10/18/17 06:00 Globulin 2.0 gm/dL 10/18/17 06:00 Albumin/Globulin Ratio 1.5 (1.1-1.8) 10/18/17 06:00 Triglycerides 94 mg/dL (35-160) 10/16/17 16:20 Cholesterol 181 mg/dL (130-200) 10/16/17 16:20 LDL Cholesterol Direct 90 mg/dL (0-129) 10/16/17 16:20 HDL Cholesterol 67 mg/dL (29-60) H 10/16/17 16:20 Lipase 275 U/L (23-300) 10/16/17 16:20 TSH 3rd Generation 1.53 mIU/mL (0.46-4.68) 10/17/17 05:30 Urine Color Yellow (YELLOW) 10/16/17 22:35 Urine Appearance Sl cloudy (CLEAR) 10/16/17 22:35 Urine pH 6.0 (4.7-8.0) 10/16/17 22:35 Ur Specific [place] 1.015 (1.005-1.035) 10/16/17 22:35 Urine Protein Negative mg/dL (<30 mg/dL) 10/16/17 22:35 Urine Glucose (UA) Negative mg/dL (NEGATIVE) 10/16/17 22:35 Urine Ketones Trace mg/dL (NEGATIVE) H 10/16/17 22:35 Urine Blood Small (NEGATIVE) H 10/16/17 22:35 Urine Nitrate Negative (NEGATIVE) 10/16/17 22:35 Urine Bilirubin Negative (NEGATIVE) 10/16/17 22:35 Urine Urobilinogen 0.2 E.U./dL (<1 E.U./dL) 10/16/17 22:35 Ur Leukocyte Esterase Negative Samia/uL (NEGATIVE) 10/16/17 22:35 Urine RBC 1 - 3 /hpf (0-2) 10/16/17 22:35 Urine WBC 0 - 2 /hpf (0-6) 10/16/17 22:35 Ur Epithelial Cells 0 - 2 /hpf (0-5) 10/16/17 22:35 Urine Bacteria Mod (NEG) 10/16/17 22:35 Hepatitis A IgM Ab Negative (NEGATIVE) 10/16/17 16:20 Hep Bs Antigen Negative (NEGATIVE) 10/16/17 16:20 Hep B Core IgM Ab Negative (NEGATIVE) 10/16/17 16:20 Hepatitis C Antibody Negative (NEGATIVE) 10/16/17 16:20 HIV 1&2 Antibody Screen Negative (NEGATIVE) 10/17/17 05:30 - Hospital Course Hospital Course: .77 year old female with PMH of multiple myeloma s/p chemo( last ) , uterine fibroids, hypothyroidism secondary to thyroidectomy, hpl and HTN who presents to the ED for diarrhea. In the ED basic labwork was done. C.Diff and infectious stool work up was performed. CT of the abdomen showed - Air-fluid levels in the colon consistent with history of diarrhea, possible enteritis, no bowel obstruction; no acute solid visceral abnormality; diffuse skeletal changes and multiple fractures consistent with history of myeloma; mild cardiomegaly and atherosclerotic disease; atelectatic changes at the lung bases. Fluid hydration was started. Pt was admitted for close monitoring. Heme / Onc was consulted and stated diarrhea likely 2/2 Revlimid which is currently on hold. Today the pt states thats she is doing much better and that her diarrhea has since much improved. No other complaints. Denies any kwon, dizziness , sob, cp, palpitations, n/v/d, abd pain, urinary changes. Dx: Enteritis / Diarrhea 2/2 chemo Discharge Exam - Head Exam Head Exam: ATRAUMATIC, NORMAL INSPECTION, NORMOCEPHALIC - Eye Exam Eye Exam: EOMI, PERRL - ENT Exam ENT Exam: Mucous Membranes Moist - Respiratory Exam Respiratory Exam: Clear to PA & Lateral. absent: Rales, Wheezes - Cardiovascular Exam Cardiovascular Exam: REGULAR RHYTHM, RRR, +S1, +S2 - GI/Abdominal Exam GI & Abdominal Exam: Normal Bowel Sounds, Soft. absent: Distended - Neurological Exam Neurological exam: Alert, Oriented x3 - Psychiatric Exam Psychiatric exam: Normal Affect, Normal Mood - Skin Skin Exam: Dry, Intact, Warm Discharge Plan - Discharge Medications Prescriptions: metroNIDAZOLE [Flagyl] 500 mg PO Q8H #30 tab - Follow Up Plan Condition: STABLE Disposition: HOME/ ROUTINE Patient education suggested?: Yes Instructions: Heart Failure (DC), Renal Failure Diet (DC), Myelodysplastic Syndromes (DC) Additional Instructions: Follow up with PMD with in 2-3 days. Take your medications as prescribed. Follow up with your heme/onc doctor with in 1 weeks. If your symptoms recur come back to the ED. Referrals: Rj Rapp MD [Primary Care Provider] - <Mario Brown S - Last Filed: 10/19/17 08:54> Provider - Provider Date of Admission: 10/16/17 21:54 Attending physician: Adrian Ding MD Primary care physician: Rj Rapp MD Hospital Course - Lab Results Lab Results: Most Recent Lab Values WBC 2.4 10^3/ul (4.5-11.0) L* D 10/18/17 06:00 RBC 2.95 10^6/uL (3.5-6.1) L 10/18/17 06:00 Hgb 9.4 g/dL (12.0-16.0) L 10/18/17 06:00 Hct 27.6 % (36.0-48.0) L 10/18/17 06:00 MCV 93.6 fl (80.0-105.0) 10/18/17 06:00 MCH 31.9 pg (25.0-35.0) 10/18/17 06:00 MCHC 34.1 g/dl (31.0-37.0) 10/18/17 06:00 RDW 15.5 % (11.5-14.5) H 10/18/17 06:00 Plt Count 28 10^3/uL (120.0-450.0) L* 10/18/17 06:00 Gran % 60.1 % (50.0-68.0) 10/18/17 06:00 Lymph % (Auto) 25.5 % (22.0-35.0) 10/18/17 06:00 Phelps % (Auto) 13.2 % (1.0-6.0) H 10/18/17 06:00 Eos % (Auto) 1.2 % (1.5-5.0) L 10/18/17 06:00 Baso % (Auto) 0.0 % (0.0-3.0) 10/18/17 06:00 Gran # 1.46 (1.4-6.5) 10/18/17 06:00 Lymph # 0.6 (1.2-3.4) L 10/18/17 06:00 Phelps # 0.3 (0.1-0.6) 10/18/17 06:00 Eos # 0.0 (0.0-0.7) 10/18/17 06:00 Baso # 0.00 K/mm3 (0.0-2.0) 10/18/17 06:00 Sodium 134 mmol/L (132-148) 10/18/17 06:00 Potassium 4.1 mmol/L (3.6-5.0) 10/18/17 06:00 Chloride 109 mmol/L (98-107) H 10/18/17 06:00 Carbon Dioxide 19 mmol/L (21-33) L 10/18/17 06:00 Anion Gap 10 (10-20) 10/18/17 06:00 BUN 22 mg/dL (7-21) H 10/18/17 06:00 Creatinine 1.5 mg/dl (0.7-1.2) H 10/18/17 06:00 Est GFR ( Amer) 41 10/18/17 06:00 Est GFR (Non-Af Amer) 34 10/18/17 06:00 POC Glucose (mg/dL) 115 mg/dL (65-110) H 10/17/17 11:14 Random Glucose 65 mg/dL (70-110) L 10/18/17 06:00 Hemoglobin A1c 5.6 % (4.2-6.5) 10/16/17 16:00 Calcium 7.7 mg/dL (8.4-10.5) L 10/18/17 06:00 Magnesium 1.5 mg/dL (1.7-2.2) L 10/17/17 05:30 Total Bilirubin 0.6 mg/dL (0.2-1.3) 10/18/17 06:00 AST 26 U/L (14-36) 10/18/17 06:00 ALT 56 U/L (7-56) 10/18/17 06:00 Alkaline Phosphatase 42 U/L (38-126) 10/18/17 06:00 NT-Pro-B Natriuret Pep 909 pg/mL (0-450) H 10/16/17 16:20 Total Protein 4.9 g/dL (5.8-8.3) L 10/18/17 06:00 Albumin 2.9 g/dL (3.0-4.8) L 10/18/17 06:00 Globulin 2.0 gm/dL 10/18/17 06:00 Albumin/Globulin Ratio 1.5 (1.1-1.8) 10/18/17 06:00 Triglycerides 94 mg/dL (35-160) 10/16/17 16:20 Cholesterol 181 mg/dL (130-200) 10/16/17 16:20 LDL Cholesterol Direct 90 mg/dL (0-129) 10/16/17 16:20 HDL Cholesterol 67 mg/dL (29-60) H 10/16/17 16:20 Lipase 275 U/L (23-300) 10/16/17 16:20 TSH 3rd Generation 1.53 mIU/mL (0.46-4.68) 10/17/17 05:30 Urine Color Yellow (YELLOW) 10/16/17 22:35 Urine Appearance Sl cloudy (CLEAR) 10/16/17 22:35 Urine pH 6.0 (4.7-8.0) 10/16/17 22:35 Ur Specific [place] 1.015 (1.005-1.035) 10/16/17 22:35 Urine Protein Negative mg/dL (<30 mg/dL) 10/16/17 22:35 Urine Glucose (UA) Negative mg/dL (NEGATIVE) 10/16/17 22:35 Urine Ketones Trace mg/dL (NEGATIVE) H 10/16/17 22:35 Urine Blood Small (NEGATIVE) H 10/16/17 22:35 Urine Nitrate Negative (NEGATIVE) 10/16/17 22:35 Urine Bilirubin Negative (NEGATIVE) 10/16/17 22:35 Urine Urobilinogen 0.2 E.U./dL (<1 E.U./dL) 10/16/17 22:35 Ur Leukocyte Esterase Negative Samia/uL (NEGATIVE) 10/16/17 22:35 Urine RBC 1 - 3 /hpf (0-2) 10/16/17 22:35 Urine WBC 0 - 2 /hpf (0-6) 10/16/17 22:35 Ur Epithelial Cells 0 - 2 /hpf (0-5) 10/16/17 22:35 Urine Bacteria Mod (NEG) 10/16/17 22:35 Hepatitis A IgM Ab Negative (NEGATIVE) 10/16/17 16:20 Hep Bs Antigen Negative (NEGATIVE) 10/16/17 16:20 Hep B Core IgM Ab Negative (NEGATIVE) 10/16/17 16:20 Hepatitis C Antibody Negative (NEGATIVE) 10/16/17 16:20 HIV 1&2 Antibody Screen Negative (NEGATIVE) 10/17/17 05:30 - Hospital Course Hospital Course: discussed w/ resident at length went over meds labs meds tests questions outpatient follow up plans
== END 2017-10-18 14:52 | disposition home or self-care (01) | DRG 392 ==
LOC: ED 15:43 → ERH 21:54 → 3RSO 23:41
PROVIDERS: ADMIT Internal Medicine; ATTEND Internal Medicine
DX: K52.9 Noninfective gastroenteritis and colitis, unspecified (principal); N17.9 Acute kidney failure, unspecified; D61.818 Other pancytopenia; C90.00 Multiple myeloma not having achieved remission; D69.6 Thrombocytopenia, unspecified; I13.0 Hypertensive heart and chronic kidney disease with heart failure and stage 1 through stage 4 chronic kidney disease, or unspecified chronic kidney disease; I27.20 Pulmonary hypertension, unspecified; I50.9 Heart failure, unspecified; E89.0 Postprocedural hypothyroidism; E86.0 Dehydration; N18.9 Chronic kidney disease, unspecified; Z79.82 Long term (current) use of aspirin; Z79.899 Other long term (current) drug therapy; Z80.3 Family history of malignant neoplasm of breast; Z83.3 Family history of diabetes mellitus; Z82.49 Family history of ischemic heart disease and other diseases of the circulatory system; Z87.891 Personal history of nicotine dependence; Z88.2 Allergy status to sulfonamides; Z90.710 Acquired absence of both cervix and uterus; Z90.721 Acquired absence of ovaries, unilateral; Z92.21 Personal history of antineoplastic chemotherapy

== ENCOUNTER 2018-04-21 13:57 | Emergency (ER) | payer MEDICARE, BC ==
[2018-04-21 13:57] VITALS: BMI 20.5
[2018-04-21 14:09] VITALS: TEMP 97.7; O2SAT 100
[2018-04-21] MEDS ORDERED: TDAP Vaccine 0.5 mL Syr IM ONE (14:15)
--- NOTE | 2018-04-21 14:28 | ED PDOC ---
Arrival/HPI - General Chief Complaint: Trauma Time Seen by Provider: 04/21/18 14:05 Historian: Patient - History of Present Illness Narrative History of Present Illness (Text): 04/21/18 14:11 A 78 year old female, whose past medical history includes hypothyroidism, was brought in by ambulance and presents to the emergency department complaining of head injury/pain s/p fall. Patient reports she was walking in the street on her way to a restaurant and tripped over the curb. As a result, patient sustained a head injury, actively bleeding. Afterwards, patient had difficulty ambulating. Patient's immediately called 911. Patient denies any LOC. PMD: Dr. Ding Past Medical History - Provider Review Nursing Documentation Reviewed: Yes - Infectious Disease Hx of Infectious Diseases: None - Tetanus Immunization Tetanus Immunization: Unknown - Cardiac Hx Hypertension: Yes - Pulmonary Hx Respiratory Disorders: No - Neurological Hx Neurological Disorder: No - HEENT Hx HEENT Disorder: No - Renal Hx Renal Disorder: No - Endocrine/Metabolic Hx Hypothyroidism: Yes - Hematological/Oncological Hx Blood Transfusions: Yes (X2 DOES NOT REMEMBER WHEN) Hx Blood Transfusion Reaction: No - Integumentary Hx Dermatological Disorder: No Other/Comment: multiple ble skin discolorations - Musculoskeletal/Rheumatological Hx Musculoskeletal Disorders: Yes - Gastrointestinal Hx Gastrointestinal Disorders: Yes (CONSTIPATION,POOR APPETITE ON ENSURE DAILY,) Other/Comment: left side abd pain on and off - Genitourinary/Gynecological Hx Genitourinary Disorders: No - Psychiatric Hx Psychophysiologic Disorder: No Hx Substance Use: No - Surgical History Hx Hysterectomy: Yes Hx Thyroidectomy: Yes Other/Comment: r breast benign growth removed - Anesthesia Hx Anesthesia Reactions: No Hx Malignant Hyperthermia: No - Suicidal Assessment Feels Threatened In Home Enviroment: No Family/Social History - Physician Review Nursing Documentation Reviewed: Yes Family/Social History: No Known Family HX Smoking Status: Never Smoked Hx Alcohol Use: No Hx Substance Use: No Allergies/Home Meds Allergies/Adverse Reactions: Allergies Sulfa (Sulfonamide Antibiotics) Allergy (Intermediate, Verified 04/21/18 14:10) RASH citric acid Allergy (Mild, Verified 04/21/18 14:10) ITCHING WITH LARGE DOSES Home Medications: Home Meds Medication Instructions Recorded Confirmed Metoprolol Tartrate [Lopressor] 50 mg PO QAM 07/28/17 04/21/18 amLODIPine [Norvasc] 10 mg PO QPM 07/28/17 04/21/18 predniSONE [predniSONE Tab] 2.5 mg PO QAM 07/28/17 04/21/18 Review of Systems - Physician Review All systems were reviewed & negative as marked: Yes - Review of Systems Constitutional: Other (head trauma/injurypain s/p fall) Neurological: absent: Other (no LOC) Physical Exam Vital Signs Reviewed: Yes Vital Signs Temp Pulse Resp BP Pulse Ox 04/21/18 16:23 97.7 F 70 20 177/81 H 100 04/21/18 14:07 97.7 F 76 18 191/96 H 100 04/21/18 13:58 97.7 F 76 18 191/96 H 100 Temperature: Afebrile Blood Pressure: Hypertensive Pulse: Regular Respiratory Rate: Normal Appearance: Positive for: Well-Appearing Pain Distress: None Mental Status: Positive for: Alert and Oriented X 3 - Systems Exam Head: Present: Laceration (1 cm left-side of forhead) Pupils: Present: PERRL Extroacular Muscles: Present: EOMI Conjunctiva: Present: Normal Mouth: Present: Moist Mucous Membranes Neck: Present: Normal Range of Motion Respiratory/Chest: Present: Clear to Auscultation, Good Air Exchange. No: Respiratory Distress, Accessory Muscle Use Cardiovascular: Present: Regular Rate and Rhythm, Normal S1, S2. No: Murmurs Abdomen: No: Tenderness, Distention, Peritoneal Signs Back: Present: Normal Inspection Upper Extremity: Present: Normal Inspection. No: Cyanosis, Edema Lower Extremity: Present: Normal Inspection. No: Edema Neurological: Present: GCS=15, CN II-XII Intact, Speech Normal Skin: Present: Warm, Dry, Normal Color. No: Rashes Psychiatric: Present: Alert, Oriented x 3, Normal Insight, Normal Concentration Medical Decision Making ED Course and Treatment: 04/21/18 14:14 Impression: 78 year old female with head injury/pain s/p fall. Physical exam shows left-side forehead laceration measuring 1 cm. Plan: -- Head CT -- Tylenol -- Boostrix Vaccine -- Reassess and disposition Progress Notes: 04/21/18 15:43 Applied Dermabond to forehead for patient. 04/21/2018 16:[address] IMPRESSION: Severe chronic microvascular changes are seen in the periventricular white matter. There are no acute intracranial findings. Dictator: Bharahti Curiel MD 04/21/18 23:01 imaging repaired, lac repaired. stable for dc. - RAD Interpretation Radiology Orders: 04/21/18 14:14 HEAD W/O CONTRAST [CT] Stat - Medication Orders Current Medication Orders: Discontinued Medications Acetaminophen (Tylenol 325mg Tab) 975 mg PO STAT STA Stop: 04/21/18 14:16 Last Admin: 04/21/18 14:25 Dose: 975 mg MAR Pain/Vitals Document 04/21/18 14:25 SRE (Rec: 04/21/18 14:30 SRE [id number]) Pain Reassessment Is This A Pain ReAssessment? Yes Sleep Is patient sleeping during reassessment? No Presence of Pain Presence of Pain Yes Pain Scale Used Pain Scale Used Numeric Location Pain Location Body Care Management Assistant Description Intermittent Tetanus/Reduced Diphtheria/Acell Pertussis (Boostrix Vaccine Inj) 0.5 ml IM .ONCE ONE Stop: 04/21/18 14:16 Last Admin: 04/21/18 14:30 Dose: 0.5 ml MAR Immunization Data Document 04/21/18 14:30 SRE (Rec: 04/21/18 14:30 SRE [id number]) Immunization Data Vaccine Information Sheet Given Yes Immunization Registry Document 04/21/18 14:30 SRE (Rec: 04/21/18 14:30 SRE [id number]) Immunization Registry Consent Date 09/23/17 - Scribe Statement The provider has reviewed the documentation as recorded by the Eleazar Whitlock Provider Scribe Attestation: All medical record entries made by the Eleazar were at my direction and personally dictated by me. I have reviewed the chart and agree that the record accurately reflects my personal performance of the history, physical exam, medical decision making, and the department course for this patient. I have also personally directed, reviewed, and agree with the discharge instructions and disposition. Disposition/Present on Arrival - Present on Arrival Any Indicators Present on Arrival: No History of DVT/PE: No History of Uncontrolled Diabetes: No Urinary Catheter: No History of Decub. Ulcer: No History Surgical Site Infection Following: None - Disposition Have Diagnosis and Disposition been Completed?: Yes Diagnosis: Fall, Head injury, Laceration Disposition: HOME/ ROUTINE Disposition Time: 04:00 Condition: STABLE Discharge Instructions (ExitCare): Preventing Falls in the Older Adult, Laceration Repair With Glue (DC), Closed Head Injury, Minor Head Injury, Head Injury Observation (DC) Additional Instructions: return to emergency room with worsening symptoms or concerns please follow up with your doctor. Referrals: [facility] [Outside] - Follow up with primary [facility] [Outside] - Follow up with primary [facility] [Outside] - Follow up with primary Forms: [employer] (Hungarian)
--- NOTE | 2018-04-21 16:07 | CT ---
PROCEDURE: CT HEAD WITHOUT CONTRAST. HISTORY: trauma COMPARISON: 05/30/2016 TECHNIQUE: Axial computed tomography images were obtained through the head/brain without intravenous contrast. Radiation dose: Total exam DLP = 873 mGy-cm. This CT exam was performed using one or more of the following dose reduction techniques: Automated exposure control, adjustment of the mA and/or kV according to patient size, and/or use of iterative reconstruction technique. FINDINGS: HEMORRHAGE: No intracranial hemorrhage. BRAIN: No mass effect or edema. Severe chronic microvascular changes are seen in the periventricular white matter. There are no acute intracranial findings. VENTRICLES: Unremarkable. No hydrocephalus. CALVARIUM: Unremarkable. PARANASAL SINUSES: Unremarkable as visualized. No significant inflammatory changes. MASTOID AIR CELLS: Unremarkable as visualized. No inflammatory changes. OTHER FINDINGS: None. IMPRESSION: Severe chronic microvascular changes are seen in the periventricular white matter. There are no acute intracranial findings.
[2018-04-21 16:32] VITALS: BP 177/81; PULSE 70; RESP 20
== END 2018-04-21 16:23 | disposition home or self-care (01) ==
LOC: ED 13:57
DX: S01.81XA Laceration without foreign body of other part of head, initial encounter (principal); W01.0XXA Fall on same level from slipping, tripping and stumbling without subsequent striking against object, initial encounter; Y93.01 Activity, walking, marching and hiking; Y92.480 Sidewalk as the place of occurrence of the external cause; Z23 Encounter for immunization

== ENCOUNTER 2018-04-24 14:33 | Emergency (ER) | payer MEDICARE, BC ==
[2018-04-24 14:34] VITALS: BMI 20.5
[2018-04-24 15:06] VITALS: RESP 18
--- NOTE | 2018-04-24 15:41 | ED PDOC ---
Arrival/HPI - General Chief Complaint: Weakness/Neurological Deficit Time Seen by Provider: 04/24/18 14:41 Historian: Patient, Spouse - History of Present Illness Narrative History of Present Illness (Text): 04/24/18 15:41 Pt is a 78 yo F with PMH of multiple myeloma s/p chemo, uterine fibroids, hypothyroidism secondary to thyroidectomy, hpl and HTN presents to the ED due to fatigue and multiple bruises found on body. Patient states that she was evaluated in the ED 3 days ago for mechanical fall. At that time, head CT was performed and was negative. Patient had a laceration lateral to the left eye brow, which was repaired with dermabond. Patient was medically stable and discharged. Patient returned today as instructed by PMD. Patient has bruising below her left eye, left arm, swelling and bruising of left knee. Patient also admits to fatigue. However, patient states that since being on chemo she has been fatigued, but is slowly improving. Patient has been off of chemo for 5-6 months. Patient denied eye pain, pain with extraocular movements, CP, SOB, n/v/d , abdominal pain, fever, chills, DELGADO, or dizziness. PMD: Toña Time/Duration: < week Symptom Onset: Sudden Symptom Course: Unchanged Quality: Aching Past Medical History - Provider Review Nursing Documentation Reviewed: Yes - Infectious Disease Hx of Infectious Diseases: None - Tetanus Immunization Tetanus Immunization: Unknown - Reproductive Menopause: Yes - Cardiac Hx Hypertension: Yes - Pulmonary Hx Respiratory Disorders: No - Neurological Hx Neurological Disorder: No - HEENT Hx HEENT Disorder: No - Renal Hx Renal Disorder: No - Endocrine/Metabolic Hx Hypothyroidism: Yes - Hematological/Oncological Hx Blood Transfusions: Yes (X2 DOES NOT REMEMBER WHEN) Hx Blood Transfusion Reaction: No - Integumentary Hx Dermatological Disorder: No Other/Comment: multiple ble skin discolorations - Musculoskeletal/Rheumatological Hx Musculoskeletal Disorders: Yes - Gastrointestinal Hx Gastrointestinal Disorders: Yes (CONSTIPATION,POOR APPETITE ON ENSURE DAILY,) Other/Comment: left side abd pain on and off - Genitourinary/Gynecological Hx Genitourinary Disorders: No - Psychiatric Hx Psychophysiologic Disorder: No Hx Substance Use: No - Surgical History Hx Hysterectomy: Yes Hx Thyroidectomy: Yes Other/Comment: r breast benign growth removed - Anesthesia Hx Anesthesia Reactions: No Hx Malignant Hyperthermia: No - Suicidal Assessment Feels Threatened In Home Enviroment: No Family/Social History - Physician Review Nursing Documentation Reviewed: Yes Family/Social History: No Known Family HX Smoking Status: Never Smoked Hx Alcohol Use: No Hx Substance Use: No Allergies/Home Meds Allergies/Adverse Reactions: Allergies Sulfa (Sulfonamide Antibiotics) Allergy (Intermediate, Verified 04/21/18 14:10) RASH citric acid Allergy (Mild, Verified 04/21/18 14:10) ITCHING WITH LARGE DOSES Home Medications: Home Meds Medication Instructions Recorded Confirmed Metoprolol Tartrate [Lopressor] 50 mg PO QAM 07/28/17 04/24/18 amLODIPine [Norvasc] 10 mg PO QPM 07/28/17 04/24/18 predniSONE [predniSONE Tab] 2.5 mg PO QAM 07/28/17 04/24/18 Review of Systems - Physician Review All systems were reviewed & negative as marked: Yes (12 point ROS reviewed and is negative other than what is stated in HPI.) - Review of Systems Constitutional: Normal Eyes: Normal Physical Exam Vital Signs Reviewed: Yes Vital Signs Temp Pulse Resp BP Pulse Ox 04/24/18 15:00 97.5 F L 68 18 165/79 H 97 Temperature: Afebrile Blood Pressure: Normal Pulse: Regular Respiratory Rate: Normal Appearance: Positive for: Non-Toxic Pain Distress: Mild Mental Status: Positive for: Alert and Oriented X 3 - Systems Exam Head: Present: Laceration (repaired with dermabond), Other (left periorbital ecchymosis, swelling) Pupils: Present: PERRL Extroacular Muscles: Present: EOMI Conjunctiva: Present: Normal Mouth: Present: Moist Mucous Membranes Neck: Present: Normal Range of Motion Respiratory/Chest: Present: Clear to Auscultation, Good Air Exchange. No: Respiratory Distress, Accessory Muscle Use Cardiovascular: Present: Regular Rate and Rhythm, Normal S1, S2. No: Murmurs Abdomen: No: Tenderness, Distention, Peritoneal Signs Back: Present: Normal Inspection Upper Extremity: Present: Other (ecchymoses on b/l UE) Lower Extremity: Present: Other (swelling, echymosis left knee) Neurological: Present: GCS=15, CN II-XII Intact, Speech Normal Skin: Present: Warm, Dry, Normal Color. No: Rashes Psychiatric: Present: Alert, Oriented x 3, Normal Insight, Normal Concentration Medical Decision Making ED Course and Treatment: 04/24/18 15:57 78 yo F presents with fatigue, ecchymoses possibly 2/2 fall. Plan: - CBC, CMP - Coags - Cardiac ISO - EKG - Head CT - Left knee xray - Reassess and disposition 04/24/18 16:04 EKG reviewed and shows sinus bradycardia, age-undetermined anterior infarct, rate 59. No acute changes. 04/24/18 17:[address] w/o contrast Impression: Severe chronic microvascular disease in the periventricular and deep white matter. No acute intracranial findings. Unchanged from previous CT. 04/24/18 17:53 Left Knee X-ray Impression: Small suprapatellar effusion without demonstrated fracture of dislocation. Degenerative changes. 04/24/18 17:59 Discussed findings with patient and plan to discharge with PMD follow up. Patient states she feels comfortable going home with support of her . Patient is medically stable for discharge. Patient has follow up appoint with PMD scheduled for Friday. - Lab Interpretations Lab Results: 04/24/18 15:45 04/24/18 15:45 Lab Results 04/24/18 15:45: Sodium 142, Potassium 4.1, Chloride 107, Carbon Dioxide 27, Anion Gap 13, BUN 31 H, Creatinine 1.8 H, Est GFR ( Amer) 33, Est GFR ( Non-Af Amer) 27, Random Glucose 85, Calcium 8.8, Magnesium 2.3 H, Total Bilirubin 0.4, AST 39 H D, ALT 38, Alkaline Phosphatase 48, Lactate Dehydrogenase 905 H, Total Creatine Kinase 162, Troponin I < 0.01 D, Total Protein 6.9, Albumin 3.8, Globulin 3.1, Albumin/Globulin Ratio 1.2 04/24/18 15:45: PT 14.9 H, INR 1.30 H, APTT 26.1 04/24/18 15:45: WBC 4.7 D, RBC 3.23 L, Hgb 10.4 L, Hct 30.8 L, MCV 95.4, MCH 32.2, MCHC 33.8, RDW 14.6 H, Plt Count 109 L, MPV 8.2, Gran % 74.2 H, Lymph % ( Auto) 11.7 L, [place] % (Auto) 13.0 H, Eos % (Auto) 0.9 L, Baso % (Auto) 0.2, Gran # 3.48, Lymph # (Auto) 0.6 L, [place] # (Auto) 0.6, Eos # (Auto) 0.0, Baso # (Auto ) 0.01 - RAD Interpretation Radiology Orders: 04/24/18 15:24 HEAD W/O CONTRAST [CT] Stat 04/24/18 15:44 KNEE LEFT 2 VIEWS (AP & LAT) [RAD] Stat - Medication Orders Current Medication Orders: Discontinued Medications Sodium Chloride (Sodium Chloride 0.9%) 500 mls @ 999 mls/hr IV .Q31M STA Stop: 04/24/18 17:11 Last Admin: 04/24/18 16:56 Dose: 999 mls/hr eMAR Start Stop Document 04/24/18 16:56 EQ (Rec: 04/24/18 16:56 EQ [id number]) Intravenous Solution Start Date 04/24/18 Start Time 16:56 Disposition/Present on Arrival - Present on Arrival Any Indicators Present on Arrival: No History of DVT/PE: No History of Uncontrolled Diabetes: No Urinary Catheter: No History of Decub. Ulcer: No History Surgical Site Infection Following: None - Disposition Have Diagnosis and Disposition been Completed?: Yes Diagnosis: Swelling of knee joint, left, Fall, Ecchymosis Disposition: HOME/ ROUTINE Disposition Time: 18:01 Patient Plan: Discharge Patient Problems: Current Active Problems Problem Status Onset Ecchymosis Acute Fall Acute Swelling of knee joint, left Acute Condition: STABLE Additional Instructions: 1. Follow up with PMD as scheduled 2. Take home medications as prescribed 3. Apply TEGAN bandage to knee to reduce swelling 4. Elevate left knee as must as possible 5. Use ice to help decrease swelling, use no more than 15 minutes at a time and place towel between ice and skin 6. Return to ED if symptoms worsen KATE WEISS, thank you for letting us take care of you today. Your provider was Ritesh Qiu DO and you were treated for WEAK/RASH (BODY). The emergency medical care you received today was directed at your acute symptoms. If you were prescribed any medication, please fill it and take as directed. It may take several days for your symptoms to resolve. Return to the Emergency Department if your symptoms worsen, do not improve, or if you have any other problems. Please contact your doctor or call one of the physicians/clinics you have been referred to that are listed on the Patient Visit Information form that is included in your discharge packet. Bring any paperwork you were given at discharge with you along with any medications you are taking to your follow up visit. Our treatment cannot replace ongoing medical care by a primary care provider outside of the emergency department. Thank you for allowing the [facility] team to be part of your care today. Referrals: Adrian Ding MD [Primary Care Provider] - Follow up with primary Forms: Only [place] (French)
[2018-04-24 15:54] LABS: BASO # 0.01 K/mm3 (0.0-2.0); BASO % 0.2 % (0.0-3.0); EOS % 0.9 % (1.5-5.0); GRAN # 3.48 (1.4-6.5); GRAN % 74.2 % (50.0-68.0); HEMOGLOBIN 10.4 g/dL (12.0-16.0); LYMPH # 0.6 (1.2-3.4); LYMPH % 11.7 % (22.0-35.0); MEAN CELL VOLUME 95.4 fl (80.0-105.0); MEAN CORPUSCULAR HEMOGLOBIN 32.2 pg (25.0-35.0); MEAN CORPUSCULAR HGB CONC 33.8 g/dl (31.0-37.0); MEAN PLATELET VOLUME 8.2 fl (7.0-11.0); MONO # 0.6 (0.1-0.6); RBC 3.23 10^6/uL (3.5-6.1); RED CELL DISTRIBUTION WIDTH 14.6 % (11.5-14.5); WHITE BLOOD COUNT 4.7 10^3/ul (4.5-11.0)
[2018-04-24 16:01] LABS: INR 1.3 (0.93-1.08); PARTIAL THROMBOPLASTIN TIME 26.1 Seconds (25.1-36.5); PROTHROMBIN TIME 14.9 SECONDS (9.4-12.5)
[2018-04-24 16:02] LABS: ALB/GLOB RATIO 1.2 (1.1-1.8); ALBUMIN 3.8 g/dL (3.0-4.8); ALT/SGPT 38 U/L (7-56); AST/SGOT 39 U/L (14-36); BLOOD UREA NITROGEN 31 mg/dL (7-21); CALCIUM 8.8 mg/dL (8.4-10.5); GFR AFRICAN-AMERICAN 33; GFR NON-AFRICAN AMERICAN 27
[2018-04-24 16:14] LABS: TROPONIN I < 0.01 ng/mL
--- NOTE | 2018-04-24 16:19 | CT ---
PROCEDURE: CT HEAD WITHOUT CONTRAST. HISTORY: fall COMPARISON: 04/21/2018 TECHNIQUE: Axial computed tomography images were obtained through the head/brain without intravenous contrast. Radiation dose: Total exam DLP = 916 mGy-cm. This CT exam was performed using one or more of the following dose reduction techniques: Automated exposure control, adjustment of the mA and/or kV according to patient size, and/or use of iterative reconstruction technique. FINDINGS: HEMORRHAGE: No intracranial hemorrhage. BRAIN: No mass effect or edema. Severe chronic microvascular disease in the periventricular white matter. VENTRICLES: Unremarkable. No hydrocephalus. CALVARIUM: Unremarkable. PARANASAL SINUSES: Unremarkable as visualized. No significant inflammatory changes. MASTOID AIR CELLS: Unremarkable as visualized. No inflammatory changes. OTHER FINDINGS: None. IMPRESSION: Severe chronic microvascular disease in the periventricular and deep white matter. No acute intracranial findings
[2018-04-24] MEDS ORDERED: Sodium Chloride 0.9% 500 ML IV STA (16:41)
--- NOTE | 2018-04-24 17:50 | RAD ---
PROCEDURE: Left Knee Radiographs. HISTORY: Pain. COMPARISON: None. FINDINGS: BONES: No acute fracture. JOINTS: Tricompartmental narrowing with degenerative spurring. JOINT EFFUSION: Small suprapatellar effusion. OTHER FINDINGS: None. IMPRESSION: Small suprapatellar effusion without demonstrated fracture or dislocation. Degenerative changes.
[2018-04-24 18:56] VITALS: BP 155/74; PULSE 70; TEMP 98.2; O2SAT 98
--- NOTE | 2018-04-24 18:59 | CARD ---
APPROVED REPORT EKG Measurement Heart [id number] <Conclusion> Sinus bradycardia Cannot rule out Anterior infarct, age undetermined Abnormal ECG
== END 2018-04-24 19:28 | disposition home or self-care (01) ==
LOC: ED 14:33
DX: M25.462 Effusion, left knee (principal); S80.02XA Contusion of left knee, initial encounter; W19.XXXA Unspecified fall, initial encounter; I10 Essential (primary) hypertension
CPT/HCPCS: 70450; 73560; 80053; 82550; 83615; 83735; 84484; 85025; 85610; 85730; 93005; 99285; J7040

== ENCOUNTER 2018-07-14 12:51 | Emergency (ER) | payer MEDICARE, BC ==
[2018-07-14 13:30] VITALS: BMI 22.9
[2018-07-14 13:45] VITALS: RESP 18
[2018-07-14] MEDS ORDERED: Sodium Chloride 0.9% 1,000 ML IV STA (14:30)
--- NOTE | 2018-07-14 14:36 | ED PDOC ---
Arrival/HPI - General Historian: Patient - History of Present Illness Time/Duration: 4-6 hours Symptom Onset: Sudden Quality: Other (weakness) Severity Level: Mild <Jefferson Haddad - Last Filed: 07/14/18 17:30> <Andre Waters - Last Filed: 07/14/18 17:37> - General Chief Complaint: Cough, Cold, Congestion Time Seen by Provider: 07/14/18 14:10 - History of Present Illness Narrative History of Present Illness (Text): 07/14/18 14:31 78 year old female, past medical history of multiple myeloma s/p chemotherapy in remission since 02/2018, hypertension, and hypothyroidism, presents to the emergency room with bilateral leg weakness since this morning. Patient states she has had cold symptoms for the pat week including a dry cough and headache. Her PMD prescribed her cough medication however she has not taken it yet. This morning when she woke up she had significant difficulty walking and felt like she was about to collapse. Denies any syncope or falls. Endorses chills, subjective fevers. Denies nausea, vomiting, shortness of breath, chest pain, palpitations, vision or hearing changes, or urinary symptoms. PMD: Dr. Ding 07/14/18 14:37 (Jefferson Haddad) Past Medical History - Provider Review Nursing Documentation Reviewed: Yes - Infectious Disease Hx of Infectious Diseases: None - Tetanus Immunization Tetanus Immunization: Unknown - Reproductive Menopause: No - Cardiac Hx Hypertension: Yes - Pulmonary Hx Respiratory Disorders: No - Neurological Hx Neurological Disorder: No - HEENT Hx HEENT Disorder: No - Renal Hx Renal Disorder: No - Endocrine/Metabolic Hx Hypothyroidism: Yes - Hematological/Oncological Hx Blood Transfusions: Yes (X2 DOES NOT REMEMBER WHEN) Hx Blood Transfusion Reaction: No - Integumentary Hx Dermatological Disorder: No Other/Comment: multiple ble skin discolorations - Musculoskeletal/Rheumatological Hx Musculoskeletal Disorders: Yes - Gastrointestinal Hx Gastrointestinal Disorders: Yes (CONSTIPATION,POOR APPETITE ON ENSURE DAILY,) Other/Comment: left side abd pain on and off - Genitourinary/Gynecological Hx Genitourinary Disorders: No - Psychiatric Hx Psychophysiologic Disorder: No Hx Substance Use: No - Surgical History Hx Hysterectomy: Yes Hx Thyroidectomy: Yes Other/Comment: r breast benign growth removed - Anesthesia Hx Anesthesia: Yes Hx Anesthesia Reactions: No Hx Malignant Hyperthermia: No - Suicidal Assessment Feels Threatened In Home Enviroment: No <Jefferson Haddad - Last Filed: 07/14/18 17:30> Family/Social History - Physician Review Nursing Documentation Reviewed: Yes Family/Social History: Unknown Family HX Smoking Status: Never Smoked Hx Alcohol Use: No Hx Substance Use: No <Jefferson Haddad - Last Filed: 07/14/18 17:30> Allergies/Home Meds <Jefferson Haddad - Last Filed: 07/14/18 17:30> <BosompAndre hogan - Last Filed: 07/14/18 17:37> Allergies/Adverse Reactions: Allergies Sulfa (Sulfonamide Antibiotics) Allergy (Intermediate, Verified 04/21/18 14:10) RASH citric acid Allergy (Mild, Verified 04/21/18 14:10) ITCHING WITH LARGE DOSES Home Medications: Home Meds Medication Instructions Recorded Confirmed Metoprolol Tartrate [Lopressor] 50 mg PO QAM 07/28/17 07/14/18 amLODIPine [Norvasc] 10 mg PO QPM 07/28/17 07/14/18 Review of Systems - Physician Review All systems were reviewed & negative as marked: Yes - Review of Systems Constitutional: absent: Fevers, Night Sweats Eyes: absent: Vision Changes ENT: absent: Hearing Changes Respiratory: Cough. absent: SOB, Sputum Cardiovascular: absent: Chest Pain, Palpitations Gastrointestinal: absent: Abdominal Pain, Diarrhea, Nausea, Vomiting Genitourinary Female: absent: Dysuria, Hematuria Musculoskeletal: absent: Back Pain Skin: absent: Skin Lesions Neurological: Headache. absent: Dizziness Endocrine: Diaphoresis <Jefferson Haddad - Last Filed: 07/14/18 17:30> Physical Exam Vital Signs Reviewed: Yes Temperature: Afebrile Blood Pressure: Normal Pulse: Regular Respiratory Rate: Normal Appearance: Positive for: Well-Appearing, Non-Toxic, Comfortable Pain Distress: None Mental Status: Positive for: Alert and Oriented X 3 Finger Stick Blood Glucose: 150 - Systems Exam Head: Present: Atraumatic, Normocephalic Pupils: Present: PERRL Extroacular Muscles: Present: EOMI Mouth: Present: Dry Pharnyx: Present: Normal Respiratory/Chest: Present: Clear to Auscultation, Good Air Exchange. No: Respiratory Distress, Accessory Muscle Use Cardiovascular: Present: Regular Rate and Rhythm, Normal S1, S2. No: Murmurs Abdomen: No: Tenderness, Distention, Peritoneal Signs Back: No: Pain with Leg Raise Upper Extremity: Present: Normal Inspection, Normal ROM, NORMAL PULSES Lower Extremity: Present: Normal Inspection, NORMAL PULSES, Normal ROM, Other ( Muscle strength 5/5 bilaterally) Neurological: Present: CN II-XII Intact, Speech Normal, Motor Func Grossly Intact, Normal Sensory Function Skin: Present: Warm, Dry Psychiatric: Present: Alert, Oriented x 3 <Jefferson Haddad - Last Filed: 07/14/18 17:30> Vital Signs Temp Pulse Resp BP Pulse Ox 07/14/18 16:11 64 18 115/73 99 07/14/18 13:43 97.8 F 69 18 115/67 99 Medical Decision Making <Jefferson Haddad - Last Filed: 07/14/18 17:30> <Andre Waters - Last Filed: 07/14/18 17:37> ED Course and Treatment: 07/14/18 14:40 78F, PMH of multiple myeloma, HTN, and hypothyroidism, presents to the ED with lower extremity weakness since this morning. CBC CMP UA EKG TSH IVF 07/14/18 16:21 Cr 2.1 EKG NSR, 74bpm. No t wave abnormalities. Unable to provide urine sample at this time. 07/14/18 17:17 Patient states she would not like to be kept in observation and go home instead. Patient is aware that her kidney function was not normal. Was previously told by PMD that she needs to increase her fluid intake. Instructed to follow up with PMD and Oncologist within 3-5 days regarding elevated creatinine. Recommended increased water intake and to follow up with physical therapy. If symptoms worsen come back to the emergency room. Patient verbalized understanding and agreement of treatment plan. Case reviewed and discussed with attending provider. (Jefferson Haddad) Patient Seen With Resident: In agreement with resident note. Patient was seen and evaluated with resident, came up with plan and treatment together. (Andre Waters) - Lab Interpretations Lab Results: 07/14/18 13:43 07/14/18 13:43 Lab Results 07/14/18 13:43: Free T4 0.53 L, TSH 3rd Generation 1.50 07/14/18 13:43: Sodium 139, Potassium 3.6, Chloride 103, Carbon Dioxide 26, Anion Gap 14, BUN 28 H, Creatinine 2.1 H, Est GFR ( Amer) 28, Est GFR ( Non-Af Amer) 23, Random Glucose 124 H, Calcium 9.3, Phosphorus 3.6, Magnesium 2.1, Total Bilirubin 0.6, AST 43 H, ALT 32, Alkaline Phosphatase 51, Total Protein 7.7, Albumin 4.2, Globulin 3.5, Albumin/Globulin Ratio 1.2 07/14/18 13:43: WBC 5.2, RBC 4.09, Hgb 13.2 D, Hct 39.1, MCV 95.6, MCH 32.3, MCHC 33.8, RDW 14.4, Plt Count 162, MPV 10.2, Gran % 66.6, Lymph % (Auto) 21.7 L , [place] % (Auto) 11.3 H, Eos % (Auto) 0.2 L, Baso % (Auto) 0.2, Gran # 3.47, Lymph # (Auto) 1.1 L, [place] # (Auto) 0.6, Eos # (Auto) 0.0, Baso # (Auto) 0.01 - Medication Orders Current Medication Orders: Discontinued Medications Sodium Chloride (Sodium Chloride 0.9%) 1,000 mls @ 999 mls/hr IV .Q1H1M STA Stop: 07/14/18 15:30 Last Admin: 07/14/18 14:37 Dose: 999 mls/hr eMAR Start Stop Document 07/14/18 14:37 [email or web address] (Rec: 07/14/18 14:38 [email or web address] [id number]) Intravenous Solution Start Date 07/14/18 Start Time 14:38 - PA / THORACIC MEDICINE SPECIALIST / Resident Statement / has reviewed & agrees with the documentation as recorded. / has examined the patient and agrees with the treatment plan. <Andre Waters - Last Filed: 07/14/18 17:37> Disposition/Present on Arrival - Present on Arrival Any Indicators Present on Arrival: No History of DVT/PE: No History of Uncontrolled Diabetes: No Urinary Catheter: No History of Decub. Ulcer: No History Surgical Site Infection Following: None - Disposition Have Diagnosis and Disposition been Completed?: Yes Disposition Time: 17:15 Patient Plan: Discharge <Jefferson Haddad - Last Filed: 07/14/18 17:30> <JtAndre - Last Filed: 07/14/18 17:37> - Disposition Diagnosis: Dehydration, Physical deconditioning Disposition: HOME/ ROUTINE Condition: GOOD Discharge Instructions (ExitCare): Dehydration, Adult (DC), Fatigue (DC) Additional Instructions: Please follow up with Dr. Ding within 3-5 days. Please follow up with your oncologist within 3-5 days. Please drink plenty of fluids and follow up with physical therapy as discussed. If symptoms worsen, please return to the emergency room. Referrals: Adrian Ding MD [Primary Care Provider] - Follow up with primary Forms: dINK (Martiniquais)
[2018-07-14 14:52] LABS: BASO # 0.01 K/mm3 (0.0-2.0); BASO % 0.2 % (0.0-3.0); EOS % 0.2 % (1.5-5.0); GRAN # 3.47 (1.4-6.5); GRAN % 66.6 % (50.0-68.0); HEMOGLOBIN 13.2 g/dL (12.0-16.0); LYMPH # 1.1 (1.2-3.4); LYMPH % 21.7 % (22.0-35.0); MEAN CELL VOLUME 95.6 fl (80.0-105.0); MEAN CORPUSCULAR HEMOGLOBIN 32.3 pg (25.0-35.0); MEAN CORPUSCULAR HGB CONC 33.8 g/dl (31.0-37.0); MEAN PLATELET VOLUME 10.2 fl (7.0-11.0); MONO # 0.6 (0.1-0.6); MONO % 11.3 % (1.0-6.0); RBC 4.09 10^6/uL (3.5-6.1); RED CELL DISTRIBUTION WIDTH 14.4 % (11.5-14.5); WHITE BLOOD COUNT 5.2 10^3/ul (4.5-11.0)
[2018-07-14 15:02] LABS: ALB/GLOB RATIO 1.2 (1.1-1.8); ALBUMIN 4.2 g/dL (3.0-4.8); CALCIUM 9.3 mg/dL (8.4-10.5)
[2018-07-14 15:17] LABS: FREE T4 0.53 ng/dL (0.78-2.19)
[2018-07-14 16:14] VITALS: BP 115/73
[2018-07-14 17:42] VITALS: PULSE 68; TEMP 98; O2SAT 98
--- NOTE | 2018-07-14 20:28 | CARD ---
APPROVED REPORT Date of service: 07/14/2018 EKG Measurement Heart [id number] <Conclusion> Sinus rhythm with premature supraventricular complexes Nonspecific T wave abnormality Abnormal ECG
== END 2018-07-14 17:53 | disposition home or self-care (01) ==
LOC: ED 12:51
DX: E86.0 Dehydration (principal); I10 Essential (primary) hypertension; E03.9 Hypothyroidism, unspecified
CPT/HCPCS: 80053; 83735; 84100; 84439; 84443; 85025; 93005; 99282; J7030